=== PATIENT | male | born 1985 | race Caucasian/White ===

== ENCOUNTER 2017-05-11 06:00 | Inpatient (IN) | payer MEDICAID ==
[~2017-05-11] VITALS: Ht 185.4 cm; Wt 127.0 kg
[2017-05-11 06:05] VITALS: BP 117/68
--- NOTE | 2017-05-11 06:15 | NUR ---
TO ER BED 8
--- NOTE | 2017-05-11 06:22 | NUR ---
Patient being evaluated by physician at bedside.
[2017-05-11 07:05] LABS: HEMATOCRIT 43.5 % (36-52); HEMOGLOBIN 14.6 g/dL (12.0-18.0); MEAN CORPUSCULAR HEMOGLOBIN 29 pg (27-31); MEAN CORPUSCULAR HGB CONC 34 g/dL (33-37); MEAN CORPUSCULAR VOLUME 86 fL (80-94); PLATELET COUNT (AUTO) 223 K/uL (140-450); RED BLOOD CELL COUNT(AUTO) 5.08 MIL/uL (4.20-6.10); RED CELL DISTRIBUTION WIDTH 12.5 % (11.6-13.7); WHITE BLOOD COUNT (AUTO) 26.4 K/uL (4.8-10.8)
--- NOTE | 2017-05-11 07:09 | NUR ---
REPORT GIVEN TO KRYSTLE PIMENTEL, FOR CONTINUITY OF CARE.
--- NOTE | 2017-05-11 07:10 | NUR ---
REPORT RECEIVED FROM MELISA PIMENTEL---PT CURRENTLY RESTING WITH OU CLOSED, NO GRIMACE, NO MOAN FEET CROSSED---FAMILY MEMEBER AT BEDSIDE
[2017-05-11 07:17] LABS: ANION GAP 12.5 (8-16); CARBON DIOXIDE 29.6 mmol/L (21-32); CREATININE 1.4 mg/dL (0.7-1.3); POTASSIUM 4.1 mmol/L (3.5-5.1)
[2017-05-11 07:21] LABS: PROTHROMBIN TIME 11.7 secs (10.8-13.4)
[2017-05-11 07:22] LABS: ALBUMIN 3.9 g/dL (3.4-5.0); TOTAL BILIRUBIN 0.9 mg/dL (0.0-1.0)
--- NOTE | 2017-05-11 07:22 | NUR ---
2.3 LACTIC ACID CRITICAL LAB VALUE RECEIVED FROM LAB---REPORTED TO
[2017-05-11 07:23] LABS: LYMPHOCYTES % (MANUAL) 5 % (20-46); MONOCYTES % (MANUAL) 2 % (5-12)
[2017-05-11] MEDS ORDERED: NACL 0.9% 4,000 ML IV ONE (07:40)
[2017-05-11] MEDS ORDERED: CLINDAMYCIN 900 MG in DEXTROSE 5% 100 ML IV ONE (07:40)
--- NOTE | 2017-05-11 07:48 | NUR ---
SPOKE WITH PT---BOTH AGREED TO ADMIT FOR IV ANTIBIOTICS
[2017-05-11] MEDS ORDERED: CLINDAMYCIN 900 MG/6 ML VIAL IV ONE (08:04)
--- NOTE | 2017-05-11 08:33 | NUR ---
PT TO CT
--- NOTE | 2017-05-11 08:50 | NUR ---
RETURNED FROM CT---BACK ON THE MONITOR AND IVF
--- NOTE | 2017-05-11 09:28 | NUR ---
Pt transferred to Tele RM 106-A VIA [facility]
[2017-05-11] MEDS ORDERED: ACETAMINOPHEN EXTRA STRENGTH 500 MG TAB ONE (09:38)
--- NOTE | 2017-05-11 09:50 | NUR ---
RECEIVED REPORT FROM KRYSTLE IN ER, PT AWAKE AND ALERT, NO SIGNS OF ACUTE DISTRESS. BOWEL SOUNDS ACTIVE IN ALL 4 QUADRANTS, BOWEL AND BLADDER CONTINENCE. SKIN INTACT WITH LLE CELLULITIS, PHOTOS TAKEN IN ER. AMBULATORY WITH BRP. PATIENT DENIES PAIN AT THIS TIME. BLOOD PRESSURE 104/72, PULSE 118, TEMPERATURE 100.2, RESPIRATIONS 16, OXYGEN SATURATION 94%. PATIENT RECEIVED TYLENOL IN ER. ORIENTED TO HOSPITAL AND TO UNIT, PATIENT VERBALIZED UNDERSTANDING. BED IN LOW POSITION WITH BILATERAL HALF SIDE RAILS UP, CALL LIGHT WITHIN REACH. WILL CONTINUE TO MONITOR.
[2017-05-11] MEDS ORDERED: LORazepam 2 MG/ML VIAL IVP PRN (10:10)
[2017-05-11] MEDS ORDERED: MORPHINE SULFATE 2 MG/ML SYR IVP PRN (10:10)
[2017-05-11] MEDS ORDERED: ONDANSETRON 4 MG/2 ML VIAL IVP PRN (10:10)
[2017-05-11] MEDS: DEXT 5% /NACL 0.9% 1,000 ML IV SCH ×2 (11:17→20:54)
--- NOTE | 2017-05-11 11:30 | NUR ---
PT SLEEPING, NO SIGNS OF ACUTE DISTRESS. BED IN LOW POSITION WITH BILATERAL HALF SIDE RAILS UP, CALL LIGHT WITHIN REACH, WILL CONTINUE TO MONITOR.
[2017-05-11 12:00] VITALS: BP 100/65
[2017-05-11] MEDS: CLINDAMYCIN 600 MG in DEXTROSE 5% 50 ML IV SCH ×2 (12:02→20:53)
[2017-05-11] MEDS: ACETAMINOPHEN 325 MG TAB PO PRN ×2 (12:02→19:55)
--- NOTE | 2017-05-11 12:15 | NUR ---
PATIENT TEMPERATURE OF 101.5, GAVE TYLENOL ORDERED PRN AND PLACED 1 ICE PACK IN GROIN AND 1 ICE PACK BEHIND NECK. WILL CONTINUE TO MONITOR.
--- NOTE | 2017-05-11 13:24 | NUR ---
PATIENT TEMPERATURE 100.1. WILL CONTINUE TO MONITOR.
[2017-05-11 16:00] VITALS: BP 96/44
--- NOTE | 2017-05-11 16:00 | NUR ---
PT SLEEPING, NO SIGNS OF ACUTE DISTRESS, PARENTS AT BEDSIDE. BED IN LOW POSITION WITH BILATERAL HALF SIDE RAILS UP, CALL LIGHT WITHIN REACH. WILL CONTINUE TO MONITOR.
[2017-05-11] MEDS ORDERED: VANCOMYCIN PER PHARMACY MC PRN (17:45)
--- NOTE | 2017-05-11 17:45 | NUR ---
PT SITTING COMFORTABLY IN BED, NO SIGNS OF ACUTE DISTRESS. BED IN LOW POSITION WITH BILATERAL HALF SIDE RAILS UP, CALL LIGHT WITHIN REACH. DENIES PAIN AT THIS TIME. WILL CONTINUE TO MONITOR.
--- NOTE | 2017-05-11 18:06 | NUR ---
RECEIVED NEW ORDER FROM DR REIS FOR VANCOMYCIN, NOTED, WILL CARRY OUT.
[2017-05-11] MEDS: VANCOMYCIN 1GM/DEXT 5% PREMIX 200 ML IV SCH (18:31)
--- NOTE | 2017-05-11 19:27 | NUR ---
PT AWAKE AND ALERT, NO SIGNS OF ACUTE DISTRESS. ENDORSED TO DRUG WORKER NURSE FOR CONTINUITY OF CARE.
--- NOTE | 2017-05-11 19:30 | NUR ---
RECEIVED PT AWAKE ON BED, VITAL SIGNS TAKEN, ST ON TELE, TEMP-100.0, WITH LEFT LEG CELLULITIS AND WOUND NOTED, LEG RED AND SWOLLEN, TENDER TO TOUCH, WOUND OPEN TO AIR, NO DRAINAGE NOTED, IVF VANCOMYCIN INFUSING AT THIS TIME, PLAN OF CARE DISCUSSED, SAFETY MEASURES IN PLACE, CALL LIGHT WITHIN REACH.
[2017-05-11 20:00] VITALS: BP 97/49
--- NOTE | 2017-05-11 21:10 | NUR ---
DR REIS HERE FOR ID CONSULT, SEEN AND TALKED TO PT, NO NEW ORDERS.
--- NOTE | 2017-05-11 21:55 | NUR ---
WITH ORDER FOR WOUND CULTURE, WOUND CLEANSED WITH STERILE WATER AND WOUND BED SWAB, NO DRAINAGE NOTED, SENT TO LAB.
[2017-05-12] VITALS: BP 100/58
--- NOTE | 2017-05-12 | NUR ---
PT SLEEPING, EASILY AROUSABLE, VITAL SIGNS TAKEN, TEMP-99.6, ST-116-118 ON TELE, DENIES ANY PAIN, IVF INFUSING WELL, CONTINUE TO MONITOR CLOSELY.
[2017-05-12] MEDS: VANCOMYCIN 1GM/DEXT 5% PREMIX 200 ML IV SCH ×3 (02:30→19:31)
[2017-05-12] MEDS: HYDROcodone/APAP 5/325 MG 1 TAB TAB PO PRN ×3 (03:42→17:18)
--- NOTE | 2017-05-12 03:50 | NUR ---
PT AWAKE, AMBULATED TO BR USING CRUTCHES, TOLERATED WELL, VITAL SIGNS TAKEN, TEMP-100.6, COMPLAINING OF PAIN, MEDICATED PRN WITH NORCO PO, COOLING MEASURES DONE, MONITORED CLOSELY.
[2017-05-12 04:00] VITALS: BP 118/72
[2017-05-12] MEDS: CLINDAMYCIN 600 MG in DEXTROSE 5% 50 ML IV SCH ×3 (05:11→21:00)
--- NOTE | 2017-05-12 05:15 | NUR ---
TEMP RECHECKED WITH 99.6 ORALLY, DUE CLINDAMYCIN IVPB ADMINISTERED, MONITORED CLOSELY.
[2017-05-12 06:04] LABS: MEAN CORPUSCULAR HEMOGLOBIN 29 pg (27-31); MEAN CORPUSCULAR HGB CONC 34 g/dL (33-37); MEAN CORPUSCULAR VOLUME 85 fL (80-94); PLATELET COUNT (AUTO) 183 K/uL (140-450); RED BLOOD CELL COUNT(AUTO) 4.48 MIL/uL (4.20-6.10); RED CELL DISTRIBUTION WIDTH 12.7 % (11.6-13.7); WHITE BLOOD COUNT (AUTO) 14.9 K/uL (4.8-10.8)
[2017-05-12] MEDS: DEXT 5% /NACL 0.9% 1,000 ML IV SCH ×2 (06:10→16:10)
[2017-05-12 06:34] LABS: ANION GAP 11.4 (8-16); CARBON DIOXIDE 26.5 mmol/L (21-32); CREATININE 1.3 mg/dL (0.7-1.3); POTASSIUM 3.9 mmol/L (3.5-5.1)
[2017-05-12 06:56] LABS: MAGNESIUM 1.7 mg/dL (1.8-2.4); PHOSPHORUS 2.5 mg/dL (2.5-4.9)
--- NOTE | 2017-05-12 07:20 | NUR ---
PT SLEEPING, EASILY AROUSABLE, NO SIGNS OF DISTRESS, REPORT GIVEN TO RN FABIENNE FOR CONTINUITY OF CARE.
--- NOTE | 2017-05-12 07:30 | NUR ---
RECEIVED REPORT FROM PM RN. PT SLEEPING AROUSES EASILY. RESP EVEN AND UNLABORED. PT DENIES PAIN OR DISCOMFORT. NO S/S OF DISTRESS, SHORTNESS OF BREATH, OR RESTLESSNESS. IV INTACT INFUSING AT 100 ML/HR, NO SIGN OF SWELLING OR REDNESS. DISCUSSED PLAN OF CARE, PT VERBALIZED UNDERSTANDING. SAFETY MEASURES IN PLACED. BED LOCKED ON LOW POSITION. CALL LIGHT WITHIN REACH. WILL CONTINUE TO MONITOR
[2017-05-12 07:37] LABS: LYMPHOCYTES % (MANUAL) 7 % (20-46)
[2017-05-12 07:38] LABS: MONOCYTES % (MANUAL) 4 % (5-12)
[2017-05-12 08:00] VITALS: BP 158/71
--- NOTE | 2017-05-12 08:04 | NUR ---
PATIENT HAS BEEN SCREENED AND CATEGORIZED HIGH NUTRITION RISK. PATIENT WILL BE SEEN WITHIN 1-2 DAYS OF ADMISSION. 05/11/17-05/12/[address]
--- NOTE | 2017-05-12 08:19 | NUR ---
PT C/O 9/10 PAIN ON LOWER LEFT LEG. OFFERED MORPHINE PER MD ORDER. PT REFUSED, AND STATED HE PREFERS NORCO FOR HIS PAIN. MEDICATED PT PER MD ORDER. TOLERATED WELL. SAFETY MEASURES IN PLACED. WILL CONTINUE TO MONITOR.
--- NOTE | 2017-05-12 10:00 | NUR ---
WOUND CARE NURSE AT BEDSIDE. ASSESSED AND TOOK PICTURE OF THE WOUND. LOWER LEFT WOUND MEASURED AT 1CM X 1CM WITH REDNESS GOING THROUGH PT'S THIGH NOTED. SKIN IS WARM TO TOUCH AROUND THE WOUND AREA. PEDAL PULSE PRESENT ON BOTH FEET, CAP REFILL LESS THAN 3 SECS. SCAB NOTED ON LEFT ARM, WHICH APPEARS TO BE HEALING, NO REDNESS, OR SWELLING ON SURROUNDING TISSUE. WILL CONTINUE TO MONITOR.
--- NOTE | 2017-05-12 11:25 | NUR ---
WOUND CARE EVALUATION NOTE: REASON FOR EVALUATION: LLE WOUND COMPLETE SKIN ASSESSMENT DONE ON THIS 31 Y/O MALE FROM HOME TO [facility] WITH INITIAL DX: PAIN AND SWELLING TO LLE NO PAST MEDICAL HISTORY RECORDED. ABOVE INFORMATION OBTAINED FROM ADMISSION H&P. MEDICATIONS INCLUDES: VANCOMYCIN, CLINDAMYCIN, MORPHINE, LORAZEPAM AND HYDROCODONE. LAB. RESULTS 05/12/17 WERE WBC 14.9, H/H 13.0/38, GLUCOSE 114, PT/INR 11.7/1.2, AND PTT29.4. PT. ALERT ORIENTED X 2, ABLE TO AMBULATE. SKIN IS WARM AND DRY TO TOUCH,WNL, WITH GOOD SKIN TURGOR. MULTIPLES TATTOOS TO UL EXTREMITIES. LLE +2 EDEMA, WARM AND TENDER TO TOUCH COMPARE TO RLE. BLE PEDAL PULSE PRESENT AND STRONG, WITH HAIR GROWTH, TOE NAILS SHORT AND CLEAN. INTEGUMENTARY: - LLE MEDIAL POSITION WITH DRY CLOSED LESION, RYNA WOUND WITH ERYTHEMA , WARM TO TOUCH -LEFT ELBOW ALTER SKIN WITH DRY SCAB RECOMMENDATION: -CLEANSE LLE CELLULITIS WITH NS. PAINT WITH BETADINE FAN BLADE ALIGNER BID WC -CLEANSE LEFT ELBOW WITH NS, PAINT WITH BETADINE FAN BLADE ALIGNER BID WC -TURN AND REPOSITION Q2H -ASSESS AND MONITOR SKIN CONDITION DURING POSITION CHANGE -OFF LOAD BILATERAL HEELS BY PLACING PILLOW UNDER CALVES AT ALL TIME UNLESS OTHERWISE CONTRAINDICATED. RECOMMENDATIONS DISCUSSED WITH PRIMARY RN WILL FOLLOW UP PT EVERY 7-10 DAYS AND PRN. PLEASE CONTACT WOUND CARE NURSE FOR ANY CONCERNS, QUESTIONS AND CHANGE IN WOUND CONDITION
--- NOTE | 2017-05-12 12:33 | NUR ---
PT RESTING COMFORTABLY. NO SIGNS OF DISTRESS, SHORTNESS OF BREATH, OR RESTLESSNESS. RESP EVEN AND UNLABORED. SAFETY PLACED IN MEASURE. BED ON LOW, CALL LIGHT WITHIN REACH, SIDE RAILS UP. WILL CONTINUE TO MONITOR.
[2017-05-12] MEDS ORDERED: MAG SULF 2000 MG/WATER PREMIX 50 ML IV SCH (13:00)
[2017-05-12] MEDS: NACL 0.9% IRR 250 ML BOTTLE IR SCH (13:45)
--- NOTE | 2017-05-12 14:54 | NUR ---
05/12/17 RD INITIAL ASSESSMENT COMPLETED PLEASE REFER TO NUTRITION ASSESSMENT UNDER CARE ACTIVITY FOR ESTIMATED NUTRITIONAL NEEDS. 1. CONTINUE REGULAR DIET 2. RD TO FOLLOW UP WITHIN 3-5 DAYS; MODERATE RISK SCOT ARENAS RD
--- NOTE | 2017-05-12 15:10 | NUR ---
PT SLEEPING, EASILY AROUSABLE. NO S/S DISTRESS, SHORTNESS OF BREATH, OR RESTLESSNESS. DENIES PAIN OR DISCOMFORT. SAFETY MEASURES IN PLACED. BED LOCKED, LOW POSITION. SIDE RAILS UP. CALL LIGHT WITHIN REACH. WILL CONTINUE TO MONITOR.
[2017-05-12 16:00] VITALS: BP 102/74
--- NOTE | 2017-05-12 17:20 | NUR ---
PT C/O INCREASED PAIN IN LLE, REDNESS AND SWELLING APPEARS SLIGHTLY MORE THAN PREVIOUS ASSESSMENT, WILL MEDICATE WITH NORCO PER PT'S REQUEST, WILL PAGE DR. KING TO NOTIFY OF INCREASED REDNESS AND SWELLING. Addendum: 05/12/17 at 1742 by Jessica Issa RN MOTHER AND FAMILY AT BEDSIDE.
--- NOTE | 2017-05-12 17:27 | NUR ---
DR KING CALLED BACK, NOTIFIED OF INCREASE IN PAIN AND REDNESS AND SWELLING, WILL PAGE DR DOBBS PER DR. KING.
--- NOTE | 2017-05-12 17:38 | NUR ---
DR DOBBS CALLED BACK, NOTIFIED OF INCREASED SWELLING AND REDNESS WITH INCREASED PAIN, NO NEW ORDERS AT THIS TIME. WILL CONTINUE TO MONITOR.
--- NOTE | 2017-05-12 18:40 | NUR ---
CALLED LAB, RESULT STILL PENDING. WILL WAIT FOR RESULT BEFORE STARTING VANCO. PT AAO. FAMILY AT BEDSIDE. NO S/S OF DISTRESS, SOB, RESTLESSNESS. RESP EVEN AND UNLABORED. PT DENIES DISCOMFORT. PAIN MEDS EFFECTIVE. WILL CONTINUE TO MONITOR.
--- NOTE | 2017-05-12 19:38 | NUR ---
ENDORSED TO PM NURSE FOR CONTINUITY OF CARE. PT IS STABLE.
--- NOTE | 2017-05-12 19:38 | NUR ---
RECEIVED PT AWAKE TALKING TO FAMILY MEMBERS AT BEDSIDE, TEMP-100.0, CONTINUE COOLING MEASURES, VANCOMYCIN IVPB PRESENTLY INFUSING, LEFT LEG WOUND SINAN, NO DRAINAGE NOTED, EDEMA TO SITE WITH REDNESS UP TO THE THIGH AREA, PT VERBALIZED SLIGHT RELIEF FROM NORCO AND DOESN'T LIKE THE EFFECT OF MORPHINE, WILL CALL DR KING, PLAN OF CARE DISCUSSED, SAFETY MEASURES IN PLACE, CALL LIGHT WITHIN REACH.
[2017-05-12] MEDS ORDERED: KETOROLAC 30 MG/ML VIAL IVP PRN (20:15)
--- NOTE | 2017-05-12 21:05 | NUR ---
CLINDAMYCIN IVPB ADMINISTERED, MEDICATED PRN WITH TORADOL IVP ORDERED, MONITORED CLOSELY.
[2017-05-12] MEDS ORDERED: cefTRIAXone 1,000 MG VIAL ONE (21:54)
--- NOTE | 2017-05-12 22:01 | NUR ---
ROCEPHIN IVPB FIRST DOSE GIVEN, MONITORED FOR REACTION, DR REIS CHANGED FREQUENCY OF CLINDAMYCIN FROM Q8H TO Q6H, A DOSE WAS GIVEN AT 2100 AND THE NEXT DOSE PER PHARMACY IS 0000, PAGED DR REIS AND SAID IT'S CORETTA TO GIVE THE 0000 DOSE, PT SLEEPING AT THIS TIME, MONITORED CLOSELY.
[2017-05-13] VITALS: BP 102/72
--- NOTE | 2017-05-13 | NUR ---
PT SLEEPING, EASILY AROUSABLE, DENIES ANY PAIN, VITAL SIGNS STABLE, AFEBRILE, MONITORED CLOSELY.
[2017-05-13] MEDS: CLINDAMYCIN 600 MG in DEXTROSE 5% 50 ML IV SCH ×4 (00:31→17:23)
[2017-05-13] MEDS: NACL 0.9% IRR 250 ML BOTTLE IR SCH ×2 (00:34→13:00)
[2017-05-13] MEDS: DEXT 5% /NACL 0.9% 1,000 ML IV SCH ×4 (02:10→22:10)
[2017-05-13] MEDS: HYDROcodone/APAP 5/325 MG 1 TAB TAB PO PRN ×4 (05:00→16:42)
--- NOTE | 2017-05-13 05:06 | NUR ---
PT COMPLAINING OF PAIN, PREFER NORCO TABLET, NORCO 1 TAB GIVEN PER REQUEST, VERBALIZED LEFT LEG IS FEELING MUCH BETTER AND HE CAN MOVE IT MORE NOW THAN YESTERDAY, NO DRAINAGE OR BLEEDING ON THE WOUND NOTED, TEMP-99.7, HR-112, SAT-95%, MONITORED CLOSELY.
[2017-05-13 06:20] LABS: BASOPHILS % (AUTO) 0.3 % (0.0-2.0); EOSINOPHILS # (AUTO) 0.2 K/uL (0-0.4); EOSINOPHILS % (AUTO) 1.5 % (0.0-4.0); HEMOGLOBIN 12.8 g/dL (12.0-18.0); LYMPHOCYTES # (AUTO) 1.4 K/uL (2.0-11.5); LYMPHOCYTES % (AUTO) 10.5 % (20.5-51.1); MEAN CORPUSCULAR HEMOGLOBIN 29 pg (27-31); MEAN CORPUSCULAR HGB CONC 34 g/dL (33-37); MEAN CORPUSCULAR VOLUME 86 fL (80-94); MONOCYTES # (AUTO) 0.8 K/uL (0.8-1.0); MONOCYTES % (AUTO) 5.6 % (1.7-9.3); NEUTROPHILS # (AUTO) 11.1 K/uL (1.8-7.7); NEUTROPHILS % (AUTO) 82.1 % (42.2-75.2); PLATELET COUNT (AUTO) 190 K/uL (140-450); RED BLOOD CELL COUNT(AUTO) 4.41 MIL/uL (4.20-6.10); RED CELL DISTRIBUTION WIDTH 12.4 % (11.6-13.7); WHITE BLOOD COUNT (AUTO) 13.5 K/uL (4.8-10.8)
--- NOTE | 2017-05-13 06:40 | NUR ---
PT SLEEPING, NO SIGNS OF DISTRESS, IVF INFUSING WELL, MONITORED CLOSELY.
--- NOTE | 2017-05-13 07:15 | NUR ---
PT AWAKE, NO DISTRESS NOTED, REPORT GIVEN TO RN FABIENNE FOR CONTINUITY OF CARE.
[2017-05-13 07:24] LABS: ANION GAP 11.4 (8-16); CARBON DIOXIDE 26.8 mmol/L (21-32); CREATININE 1.1 mg/dL (0.7-1.3); POTASSIUM 4.2 mmol/L (3.5-5.1)
[2017-05-13 07:25] LABS: MAGNESIUM 2.2 mg/dL (1.8-2.4); PHOSPHORUS 2.5 mg/dL (2.5-4.9)
--- NOTE | 2017-05-13 07:26 | NUR ---
RECEIVED REPORT FROM PM RN. PT SLEEPING AROUSES EASILY. RESP EVEN AND UNLABORED. PT DENIES PAIN OR DISCOMFORT. NO S/S OF DISTRESS, SHORTNESS OF BREATH, OR RESTLESSNESS. IV INTACT INFUSING AT 100 ML/HR, NO SIGN OF SWELLING OR REDNESS. SKIN IS WARM, AND DRY. COLOR WNL. LLE CELLULITIS, SLIGHT REDNESS AND SWELLING NOTED. DISCUSSED PLAN OF CARE, PT VERBALIZED UNDERSTANDING. SAFETY MEASURES IN PLACED. BED LOCKED ON LOW POSITION. CALL LIGHT WITHIN REACH. WILL CONTINUE TO MONITOR
[2017-05-13 08:00] VITALS: BP 127/71
--- NOTE | 2017-05-13 08:44 | NUR ---
PT C/O 9/10 PAIN IN LLE. LLE REDNESS AND SWELLING NOTED. PT REFUSED TORADOL, REQUESTED NORCO. SAFETY MEASURE IN PLACED. WILL CONTINUE TO MONITOR.
--- NOTE | 2017-05-13 09:36 | NUR ---
PT SLEEPING BUT EASILY AROUSABLE. DENIES PAIN OF DISCOMFORT. NO S/S OD DISTRESS, SOB, OR RESTLESSNESS. SAFETY MEASURES IN PLACED. CALL LIGHT WITHIN REACH, BED ON LOW POSITION AND LOCKED, SIDE RIALS UP. WILL CONTINUE TO MONITOR.
--- NOTE | 2017-05-13 12:14 | NUR ---
DR KING AT BEDSIDE
--- NOTE | 2017-05-13 13:20 | NUR ---
PT'S FAMILY MEMBER AT BEDSIDE. PT EATING LUNCH BROUGHT FROM HOME. NO S/S DISTRESS. DENIES PAIN OR DISCOMFORT. SAFETY MEASURES IN PLACED. WILL CONTINUE TO MONITOR.
--- NOTE | 2017-05-13 13:36 | NUR ---
PAGED DR Janki WASHINGTON REGARDING PT'S CONSULT. AWAITING CALL BACK.
--- NOTE | 2017-05-13 14:26 | NUR ---
RECEIVED A CALL BACK FROM DR Janki WASHINGTON'S OFFICE. PER DR WASHINGTON'S MAGNETIZER, PT CANNOT BE SEEN DUE TO HIS INSURANCE. WILL NOTIFY DR KING.
--- NOTE | 2017-05-13 15:32 | NUR ---
PT RESTING COMFORTABLY. DENIES DISCOMFORT OR NEEDS. NO S/S DISTRESS, SOB, OR RESTLESSNESS. SAFETY MEASURES IN PLACED. CALL LIGHT WITHIN REACH. BED ON LOW POSITION. SIDE RAILS UP. WILL CONTINUE TO MONITOR.
[2017-05-13 16:00] VITALS: BP 112/68
--- NOTE | 2017-05-13 18:21 | NUR ---
PT SLEEPING, EASILY AROUSABLE. NO S/S OF DISTRESS, RESTLESSNESS, OR SOB. WILL CONTINUE TO MONITOR.
--- NOTE | 2017-05-13 19:21 | NUR ---
ENDORSED CARE TO PM NURSE FOR CONTINUITY OF CARE. PT IS STABLE.
--- NOTE | 2017-05-13 19:25 | NUR ---
RECEIVED PT FROM AM NURSE. PT IS STABLE, AWAKE, ALERT, ORIENTED X4. MED SURG PT ON ROOM AIR. IV ACCESS ON RIGHT HAND 22 G FLUIDS RUNNING AT 10ML/HR. PLAN OF CARE DISCUSSED WITH PT, VERBALIZED UNDERSTANDING. PTS OWN CRUTCHES FROM HOME AT THE BEDSIDE. BED ON LOW POSITION, CALL LIGHT WITHIN REACH. WILL CONTINUE TO MONITOR.
[2017-05-13] MEDS: ACETAMINOPHEN 325 MG TAB PO PRN (19:35)
[2017-05-13 20:00] VITALS: BP 104/59
--- NOTE | 2017-05-13 22:00 | NUR ---
GOT UP TO THE BATHROOM WITH CRUTCHES. WASHED UP . THEN BACK TO BED .
[2017-05-14 00:10] VITALS: BP 114/67
[2017-05-14] MEDS: CLINDAMYCIN 600 MG in DEXTROSE 5% 50 ML IV SCH ×2 (00:41→06:00)
[2017-05-14] MEDS: NACL 0.9% IRR 250 ML BOTTLE IR SCH (01:00)
--- NOTE | 2017-05-14 02:20 | NUR ---
MADE ROUNDS. PT IS SLEEPING SHOWING NO S/S OF DISCOMFORT. WILL CONTINUE TO MONITOR
--- NOTE | 2017-05-14 04:56 | NUR ---
MADE ROUNDS. PT IS SLEEPING, SHOWING NO S/S OF DISCOMFORT. WILL CONTINUE TO MONITOR.
[2017-05-14] MEDS: DEXT 5% /NACL 0.9% 1,000 ML IV SCH (05:02)
[2017-05-14 07:14] LABS: BASOPHILS # (AUTO) 0.1 K/uL (0.00-0.22); BASOPHILS % (AUTO) 0.9 % (0.0-2.0); EOSINOPHILS # (AUTO) 0.4 K/uL (0-0.4); EOSINOPHILS % (AUTO) 3.2 % (0.0-4.0); HEMOGLOBIN 12.2 g/dL (12.0-18.0); LYMPHOCYTES # (AUTO) 1.7 K/uL (2.0-11.5); LYMPHOCYTES % (AUTO) 15.4 % (20.5-51.1); MEAN CORPUSCULAR HEMOGLOBIN 30 pg (27-31); MEAN CORPUSCULAR HGB CONC 35 g/dL (33-37); MEAN CORPUSCULAR VOLUME 85 fL (80-94); MONOCYTES # (AUTO) 0.8 K/uL (0.8-1.0); MONOCYTES % (AUTO) 7.4 % (1.7-9.3); NEUTROPHILS # (AUTO) 8.2 K/uL (1.8-7.7); NEUTROPHILS % (AUTO) 73.1 % (42.2-75.2); PLATELET COUNT (AUTO) 200 K/uL (140-450); RED BLOOD CELL COUNT(AUTO) 4.13 MIL/uL (4.20-6.10); RED CELL DISTRIBUTION WIDTH 12.6 % (11.6-13.7); WHITE BLOOD COUNT (AUTO) 11.2 K/uL (4.8-10.8)
--- NOTE | 2017-05-14 07:15 | NUR ---
RECEIVED REPORT FROM QA TEST LEAD NURSE, PT IS SITTING UP IN BED AT THIS TIME, A/OX4, AMBULATES WITH ASSIST, IV IS ON THE RT HAND,PATENT, INTACT, FLUSHING WELL, PT HAS LEFT LOWER EXTREMITY CELLULITIS, SCAB ON HIS LEFT ELBOW, NO S/S OF RESPIRATORY DISTRESS OR DISCOMFORT NOTED, DISCUSSED PLAN OF CARE WITH PT, PT VERBALIZED UNDERSTANDING, SAFETY/FALL PRECAUTIONS ARE IN PLACE, CALL LIGHT IS WITHIN REACH, WILL CONTINUE TO MONITOR.
[2017-05-14 08:22] VITALS: BP 106/73
[2017-05-14 08:35] LABS: ANION GAP 9.2 (8-16); CARBON DIOXIDE 26.9 mmol/L (21-32); CREATININE 1.1 mg/dL (0.7-1.3); POTASSIUM 4.1 mmol/L (3.5-5.1)
--- NOTE | 2017-05-14 08:52 | NUR ---
PAGED DR. LAN REGARDING PATIENT.
[2017-05-14] MEDS ORDERED: COMMUNICATION ORDER MC SCH (09:00)
--- NOTE | 2017-05-14 09:00 | NUR ---
CALLED DR. KING I LET HIM KNOW THE PATIENT WANTED TO LEAVE AMA AND THAT I HAD ALSO SPOKEN TO DR. VILLANUEVA AND PER DR. VILLANUEVA PATIENT CAN CONTINUE ORAL PCN AT HOME, DR. KING SAID HE WOULD BE IN TO SEE PT IN HALF HOUR BUT IF PT DECIDED TO LEAVE AMA PATIENT THEN PATIENT COULD FOLLOW UP AT DR. AMAYA OFFICE.
--- NOTE | 2017-05-14 09:05 | NUR ---
I WENT AHEAD AND LET THE PATIENT KNOW DR. KING WAS ON HIS WAY AND WOULD BE HERE IN HALF HOUR, PT SAID HE WAS NOT GOING TO WAIT BECAUSE HE HAD TO GO TO WORK AND HIS RIDE WAS HERE. I LET HIM KNOW IF HE LEFT RIGHT NOW HE WOULD NOT RECEIVE A PRESCRIPTION BECAUSE DR. KING WOULD NEED TO WRITE IT OUT.
[2017-05-14] MEDS ORDERED: NACL IV SCH (12:00)
[2017-05-14] MEDS ORDERED: PENICILLIN POTASSIUM MU IV SCH (12:00)
== END 2017-05-14 09:15 | disposition left against medical advice (07) | DRG 720 ==
LOC: MED 06:00 → MTU 08:25
PROVIDERS: ADMIT Preventive Medicine Preventive Medicine/Occupational Environmental Medicine; ATTEND Preventive Medicine Preventive Medicine/Occupational Environmental Medicine
DX: A41.9 Sepsis, unspecified organism (principal); N17.9 Acute kidney failure, unspecified; E83.51 Hypocalcemia; E83.42 Hypomagnesemia; L03.116 Cellulitis of left lower limb; E66.9 Obesity, unspecified; B95.1 Streptococcus, group B, as the cause of diseases classified elsewhere; R73.9 Hyperglycemia, unspecified; R03.0 Elevated blood-pressure reading, without diagnosis of hypertension; Z68.36 Body mass index [BMI] 36.0-36.9, adult
CPT/HCPCS: 36415; 73701; 80048; 80053; 80202; 83605; 83735; 84100; 85025; 85610; 85651; 85730; 86140; 87040; 87070; 87075; 87081; 93971; 96365; 99285; J0696; J1885; J2270; J2540; J3370; J3475; J3490; J7030; J7042; J7060; Q0092; Q9967

== ENCOUNTER 2021-05-20 11:48 | Inpatient (IN) | payer OTHER, SELFPAY ==
[~2021-05-20] VITALS: Ht 180.3 cm; Wt 151.5 kg
--- NOTE | 2021-05-20 12:01 | NUR ---
PT AMBULATED TO ER BED 3.
[2021-05-20] MEDS ORDERED: NACL 0.9% 1,000 ML IV SCH (12:05)
[2021-05-20] MEDS ORDERED: cefTRIAXone 1,000 MG in DEXT 5% MINI-BAG PLUS 50 ML IV ONE (12:05)
[2021-05-20] MEDS ORDERED: cefTRIAXone 1,000 MG VIAL ONE (12:16)
--- NOTE | 2021-05-20 12:20 | NUR ---
35 Y/O MALE C/O SOB, +COUGH, N/V, FATIGUE, MYALGIA X 5 DAYS. STATES HE HAD A FEVER AT HOME OF 104F ON AND OFF X5 DAYS. PT RESP EVEN AND LABORED WITH SAT 85% ON RA. PLACED ON NON-REBREATHER WITH 02 SAT AT 97%. RT AT BEDSIDE. LUNGS DIM BILAT. AOX4 , ABLE TO MAKE ALL NEEDS KNOWN. PULSES PALPABLE AND STRONG BILAT. BLE +1 NON-PITTING. PMHX: DENIES NKA
--- NOTE | 2021-05-20 12:26 | NUR ---
LABS COLLECTED AND WALKED OVER TO LAB
[2021-05-20 13:02] LABS: BASOPHILS % (AUTO) 0.2 % (0.0-2.0); HEMATOCRIT 40.3 % (36-52); HEMOGLOBIN 13.6 g/dL (12.0-18.0); LYMPHOCYTES # (AUTO) 1.3 K/uL (2.0-11.5); LYMPHOCYTES % (AUTO) 25.2 % (20.5-51.1); MEAN CORPUSCULAR HEMOGLOBIN 28 pg (27-31); MEAN CORPUSCULAR HGB CONC 34 g/dL (33-37); MEAN CORPUSCULAR VOLUME 82.5 fL (80-94); MONOCYTES # (AUTO) 0.2 K/uL (0.8-1.0); MONOCYTES % (AUTO) 4.4 % (1.7-9.3); NEUTROPHILS # (AUTO) 3.5 K/uL (1.8-7.7); NEUTROPHILS % (AUTO) 70.2 % (42.2-75.2); PLATELET COUNT (AUTO) 126 K/uL (140-450); RED BLOOD CELL COUNT(AUTO) 4.88 MIL/uL (4.20-6.10); RED CELL DISTRIBUTION WIDTH 14.4 % (11.6-13.7)
--- NOTE | 2021-05-20 13:09 | NUR ---
COVID TESTS DONE, WALKED DOWN TO LAB. EKG COMPLETED. RESULTS HANDED TO
[2021-05-20 13:13] LABS: ALBUMIN 2.9 g/dL (3.4-5.0); ANION GAP 8.5 (8-16); CARBON DIOXIDE 29.2 mmol/L (21-32); CREATININE 1.5 mg/dL (0.6-1.3); POTASSIUM 3.7 mmol/L (3.5-5.1); TOTAL BILIRUBIN 0.6 mg/dL (0.0-1.0)
[2021-05-20] MEDS ORDERED: MORPHINE SULFATE 4 MG/ML SYR IVP PRN (14:10)
[2021-05-20] MEDS ORDERED: HYDROcodone/APAP 5/325 MG 1 TAB TAB PO PRN (14:10)
[2021-05-20] MEDS ORDERED: POTASSIUM CHLORIDE 10 MEQ TABER PO PRN (14:10)
[2021-05-20] MEDS ORDERED: MAG SULF 2000 MG/WATER PREMIX 50 ML IV PRN (14:10)
[2021-05-20] MEDS ORDERED: KCL 20 MEQ/WATER INJ PREMIX 200 ML IV PRN (14:10)
[2021-05-20] MEDS ORDERED: ONDANSETRON 4 MG/2 ML VIAL IVP PRN (14:10)
[2021-05-20] MEDS ORDERED: MAGNESIUM OXIDE 400 MG TAB PO PRN (14:10)
[2021-05-20] MEDS ORDERED: LORazepam 2 MG/ML VIAL IVP ONE (14:20)
[2021-05-20] MEDS ORDERED: remdesivir COMMUNICATION ORDER 1 EA MISC MC PRN (14:55)
[2021-05-20] MEDS ORDERED: remdesivir CLINICAL MONITORING 1 EA MISC MC PRN (15:00)
[2021-05-20] MEDS: DEXAMETHASONE 4 MG/ML VIAL IVP SCH (15:28)
[2021-05-20] MEDS: POTASSIUM CHL 20 MEQ/NACL 0.9% 1,000 ML IV SCH (15:29)
[2021-05-20] MEDS ORDERED: REMDESIVIR. 200 MG in NACL 0.9% 100 ML IV SCH (16:00)
--- NOTE | 2021-05-20 18:05 | NUR ---
Patient will be admitted to care of [facility]. Admited to TELE. Will go to room. Belongings list completed. Report to . Addendum: 05/20/21 at 1828 by THELMA REPORT GIVEN TO RONNY PIMENTEL
[2021-05-20 18:51] VITALS: BP 102/64
[2021-05-20] MEDS: ACETAMINOPHEN 325 MG TAB PO PRN (18:54)
--- NOTE | 2021-05-20 19:08 | NUR ---
Patient arrived on unit in wheeled chair. Patient has shortness of breath, cough and had a fever of 102.2, given tylenol and applied Oxymizer currently eating dinner and has no further needs.
--- NOTE | 2021-05-20 19:35 | NUR ---
RECEIVED REPORT FROM AM NURSE. PATIENT IN BED WITH O2 AT 10 LPM. NO SOB NOTED. IVF INFUSING WELL. ALL SAFETY PRECAUTIONS ARE IN PLACE. CALL LIGHT WITHIN REACH. WILL CONTINUE TO MONITOR.
[2021-05-20 20:00] VITALS: BP 122/70
[2021-05-20] MEDS: APIXABAN 2.5 MG TAB PO SCH (20:58)
--- NOTE | 2021-05-20 21:30 | NUR ---
PATIENT IS SWEATING A LOT, KEPT DRY AND CLEAN.
[2021-05-21] VITALS: BP 121/73
--- NOTE | 2021-05-21 01:00 | NUR ---
PATIENT IS SLEEPING . NO S/S OF RESPIRATORY DISTRESS. CALL LIGHT WITHIN REACH.
[2021-05-21] MEDS: POTASSIUM CHL 20 MEQ/NACL 0.9% 1,000 ML IV SCH ×2 (02:40→15:10)
[2021-05-21 04:00] VITALS: BP 121/69
[2021-05-21 06:19] LABS: ALBUMIN 2.7 g/dL (3.4-5.0); ANION GAP 12.4 (8-16); CHOL/HDL RATIO 2.7 (1-4.5); CREATININE 1.2 mg/dL (0.6-1.3); POTASSIUM 4.4 mmol/L (3.5-5.1); TOTAL BILIRUBIN 0.5 mg/dL (0.0-1.0)
[2021-05-21 06:28] LABS: BASOPHILS % (AUTO) 0.2 % (0.0-2.0); HEMATOCRIT 40.2 % (36-52); HEMOGLOBIN 13.9 g/dL (12.0-18.0); LYMPHOCYTES # (AUTO) 1.1 K/uL (2.0-11.5); LYMPHOCYTES % (AUTO) 22.8 % (20.5-51.1); MEAN CORPUSCULAR HEMOGLOBIN 28 pg (27-31); MEAN CORPUSCULAR HGB CONC 35 g/dL (33-37); MEAN CORPUSCULAR VOLUME 80.9 fL (80-94); MONOCYTES # (AUTO) 0.4 K/uL (0.8-1.0); MONOCYTES % (AUTO) 7.4 % (1.7-9.3); NEUTROPHILS # (AUTO) 3.4 K/uL (1.8-7.7); NEUTROPHILS % (AUTO) 69.6 % (42.2-75.2); PLATELET COUNT (AUTO) 137 K/uL (140-450); RED BLOOD CELL COUNT(AUTO) 4.97 MIL/uL (4.20-6.10); RED CELL DISTRIBUTION WIDTH 14.7 % (11.6-13.7); WHITE BLOOD COUNT (AUTO) 4.8 K/uL (4.8-10.8)
--- NOTE | 2021-05-21 07:26 | NUR ---
ENDORSED TO AM NURSE FOR CONTINUITY OF CARE. PT IS STABLE.
[2021-05-21 08:00] VITALS: BP 133/77
--- NOTE | 2021-05-21 08:01 | NUR ---
RECEIVED REPORT FROM NIGHT NURSE, PT CAME FOR SOB, N/V FATIGUE FROM LAST 5 DAYS. PT DIAGNOSED WITH COVID, PNA, RESPIRATORY FAILURE. NKA, FULL CODE, ALERT ORIENTED X 4 ON REGULAR DIET. NO BM YESTERDAY. IV ACCESS ON R AC 22 GAUGE. ON 15L OF O2 VIA BUBBLE MODIFIER. HAD FEVER LAST NIGHT. WILL CONTINUE TO MONITOR PT AND FOLLOW CURRENT PLAN OF CARE.
--- NOTE | 2021-05-21 09:06 | NUR ---
PATIENT HAS BEEN SCREENED AND CATEGORIZED MODERATE NUTRITION RISK. PATIENT WILL BE SEEN WITHIN 3-5 DAYS OF ADMISSION. 05/23/21 05/25/[address]
--- NOTE | 2021-05-21 09:07 | NUR ---
ADMINISTERED PRESCRIBED MEDICATIONS PER MD ORDER. PT DO NOT HAVE SOB O2 SATURATION IS 94% AT THE MOMENT. WILL CONTINUE TO MONITOR PT.
[2021-05-21] MEDS: DEXAMETHASONE 4 MG/ML VIAL IVP SCH (09:43)
[2021-05-21] MEDS: APIXABAN 2.5 MG TAB PO SCH ×2 (09:43→21:06)
--- NOTE | 2021-05-21 11:00 | NUR ---
MADE ROUNDS PATIENT IS RESTING OXYGEN SATURATION AT 88-89% WILL CONTINUE TO MONITOR.
[2021-05-21] MEDS ORDERED: MORPHINE SULFATE 2 MG/ML SYR IVP PRN (11:15)
[2021-05-21 12:00] VITALS: BP 148/89
--- NOTE | 2021-05-21 12:00 | NUR ---
CALLED RT AND TALKED TO DIANN LAND IS DESAT AT 77-81 % ON 15LPM OXYGEN VIA NC. WILL CONTINUE TO MONITOR.
--- NOTE | 2021-05-21 13:23 | NUR ---
PT IS IN THE BED SLEEPING, O2 SAT IS 90%. PT HAS NO APPETITE AND PT REFUSED TO EAT LUNCH.
--- NOTE | 2021-05-21 14:05 | NUR ---
VISUAL SUPERVISOR CALLED TO BED FOR DESCENDING SATURATION RECEIVED ON A BUBBLE HUMIDIFIED OXYGEN AT 15 LPM VIA NC SATURATION 86% TACHYPNEIC AT 36 BPM HR 88 BREATH SOUNDS DECREASED RIGHT SIDE MC LML DIMINISHED LLL LOC ASLEEP EASILY AWAKEN COVID POSITIVE RAPID 05/20; PUI PCR 05/20 PATIENT IS PRESENTING WITH DESCENDING SATURATION FROM 94% TO 86% PATIENT IS CANDIDATE FOR HIGH FLOW NASAL CANNULA REVIEWED WITH TERE/MARGARITO
--- NOTE | 2021-05-21 14:13 | NUR ---
PLACED ON A VAPOTHERM HIGH FLOW NASAL CANNULA NOTED TERE/RN NOTIFIED
[2021-05-21] MEDS: REMDESIVIR. 100 MG in NACL 0.9% 100 ML IV SCH (14:16)
--- NOTE | 2021-05-21 14:18 | NUR ---
DC PLANNIN YRS OLD MALE PATIENT WAS ADMITTED FROM HOME WITH A DX OF COVID PNA , HYPOXEMIC RESP FAILURE. PT HAS NO MEDICAL HISTORY. CXR SHOWED BILATERAL PATCHY PNA. RAPID COVID TEST POSITIVE PCR IS PENDING. ON 15L NRB SATING 93%. ADMINISTERED REMDESIVIR IV , DECADRON IVP AND CONTINUED HOME MEDS. CONSULTED WITH ANGELA. DC PLAN PER PT RESPONSE TO THE TREATMENT. CM TO FOLLOW Addendum: 05/28/21 at 1146 by Aylin Lino RN DC PLANNING: FAXED THE ORDER TO [facility] , [facility] AND [facility] CM TO FOLLOW Addendum: 05/28/21 at 1527 by Aylin Lino RN DC PLANNING: RECEIVED A CALL FROM [facility] COATING MACHINE FEEDER SPOKE WITH [place] STATED DECLINE PATIENT BECAUSE THEIR ECMO IS IN USE PLUS PATIENT IS NOT STABLE FOR TRANSFER FI02 IS 75% . CALLED [facility] THEY DON'T HAVE ECMO, NOTIFIED IE AWAITING FOR RESPOND. CM TO FOLLOW Addendum: 05/29/21 at 1745 by Aylin Lino RN DC PLANNING: FOLLOWING UP WITH [facility] NO BED AVAILABLE [facility] AND [facility]. NO BED AVAILABLE. CM TO FOLLOW Addendum: 05/31/21 at 1700 by Aylin Lino RN DC PLANNING CONTINUE ON VENT SUPPORT FIO2 60% . ON VESED, FENTANYL AND PROPOFOL DRIP. CONTINUED IVF, IV ABX LEVAQUIN. CALLED [facility] SPOKE WITH DEANN STATED THEY ARE AT CAPACITY FOR ECMO. [facility] [place], [facility] AND ALEXANDRA DECLINE THE CASE. CM TO FOLLOW Addendum: 06/03/21 at 1157 by Aylin Lino RN DC PLANNING: REMAINS ON VENT FIO2 40% ON VERSED, PROPOFOL AND FENTANYL DRIPS. FOLLOWED UP WITH TRANSFER FOR ECMO [facility], [facility] [place] AND [facility] NO BED AVAILABLE. CM TO FOLLOW Addendum: 06/04/21 at 1236 by Aylin Lino RN DC PLANNING: CALLED [facility] SPOKE WITH TEN BOYCE STATED THE CASE IS ALREADY DECLINE BY THEIR MD HOWEVER NO ICU BED AT THIS TIME. CALLED [facility] TRANSFER CENTER SPOKE WITH SOL STATED NO ICU BED AVAILABLE RECOMMENDED TO CALL EVERY DAY. [facility] [place] AND ELIZABETH LEFT A MESSAGE. PT STILL INTUBATED SEDATED FIO2 40% ON PROPOFOL, VERSED AND FENTANYL DRIP. CM TO FOLLOW Addendum: 06/05/21 at 1550 by Aylin Lino RN DC PLANNING: PATIENT HAS AN [facility] EVALUATION, FAXED TO [facility] AND CM TO FOLLOW Addendum: 06/06/21 at 1413 by Aylin Lino RN DC PLANNING: RECEIVED A CALL FROM [facility] [phone] SPOKE WITH [facility] PROVIDED AUTH # LAYA KEENE [id number] FOR TRANSPORT [id number] CM TO FOLLOW Addendum: 06/07/21 at 1712 by Aylin Lino RN DC PLANNING: NEVIN AND I MET WITH PT'S FAMILY FATHER AND MOTHER DISCUSSED THE CONCERN AND ISSUES, CLARIFIED THE IV INSERTION SITE, FAMILY REQUESTED TO TRANSFER HIM TO OTHER FACILITY AND TO HAVE A MEETING WITH THE DR. NOTIFIED DR HOSKINS TO CALL THE FAMILY. SPOKE WITH THE [facility] MARIA G NAVAS [phone] UPDATED HER THE LT[facility] PENDING FOR BED BUT FAMILY REFUSED. PER YOSEF THEY ARE NOT AUTHORIZE FOR TRANSFER TO HIGHER LEVEL . CM TO FOLLOW Addendum: 06/10/21 at 1350 by Aylin Lino RN DC PLANNING: SPOKE WITH DR DAVIS STATED HE SPOKE WITH PT'S FATHER ANSWERED ALL THE QUESTIONS AND CONCERNS, AGREED WITH TREATMENT. PER DR DAVIS WANTED TO WAIT UNTIL THURSDAY FOR POSSIBLE TRACH. SPOKE WITH PT'S FATHER CONFIRMED THAT HE SPOKE WITH DR PARRISH ON THURSDAY AND DR MAX TODAY HE IS VERY SATISFIED WITH DR DAVIS ,ANSWERED ALL QUESTIONS. HOW EVER HE REQUESTED TO REQUEST A TRANSFER TO [facility] [place]. FAXED TO [facility] AND [facility] PER FAMILY REQUEST. CM TO FOLLOW Addendum: 06/10/21 at 1642 by Aylin Lino RN DC PLANNING: PER FAMILY REQUEST CALLED AND FAXED ALL PAPER WORKS TO [phone] STATED THEY ARE NOT CONTRACTED WITH [facility] PLUS THEY HAVE NO ICU BED. CALLED [facility] SPOKE WITH AUGUSTIN NO ICU BED WELL. CALLED PT'S FATHER NOTIFIED HIM AND UPDATED HIM THE SITUATION. CM TO FOLLOW Addendum: 06/17/21 at 1152 by Aylin Lino RN DC PLANNING: PATIENT HAS AN ORDERFOR THE HOME O2 FAXED TO [facility] AND [facility]. RECEIVED A CALL FROM [facility] SPOKE WITH DEA ASKED THAT WHERE WE NEED THE OXYGEN. I CLARIFIED THE OXYGEN TO BE DELIVERED AT THE BED SIDE. PER DEA THE ETA WILL BE BETWEEN 2-3 HRS. CALLED PT'S FATHER AND NOTIFIED HIM THE ETA TIME AND WORKING ON HOME HEALTH. FAXED THE REQUEST TO [facility]. CM TO FOLLOW Addendum: 06/17/21 at 1716 by Aylin Lino RN DC PLANNING: CALLED [facility] SPOKE WITH SARKIS PROVIDE THE AUTH FOR [facility] [id number] CALLED [facility] PROVIDE THE AUTH TO [facility] AND PER [facility] WILL ARRANGE TO SEE PATIENT 06/18. NOTIFIED PT'S FATHER ANA SR. [facility] TO FOLLOW
--- NOTE | 2021-05-21 14:24 | NUR ---
ADMINISTERED REMDESIVEIR 100 MG SCHEDULED INFUSING WELL AND CHANGED PT OXYGEN TO HIGH FLOW 100% AT 35 LPM AND TEMP AT 34 SATURATING AT 92%.
[2021-05-21 16:00] VITALS: BP 126/72
--- NOTE | 2021-05-21 17:52 | NUR ---
CALLED RT PATIENT OXYGEN LEVEL AT 72%. PT IS SITTING AND ON HIGH FLOW 100% AT 35LPM.
--- NOTE | 2021-05-21 18:20 | NUR ---
MADE ROUNDS AT THIS TIME PATIENT ON SYLVIA FLOW 100% FIO2 35LPM OXYGEN SATURATION 85%. ENCOURAGE PT TO LIE ON THE SIDE AND DO PRONONG BUT UNABLE TO TOLERATE POSITION. WILL CONTINUE TO MONITOR.
--- NOTE | 2021-05-21 19:33 | NUR ---
endorsed the night nurse for continuity of care
--- NOTE | 2021-05-21 19:34 | NUR ---
RECEIVED REPORT FROM AM NURSE FOR CONTINUITY OF CARE. PATIENT IS CALM IN BED IN HIGH CONDON'S POSITION WITH EYES CLOSED. ON HI FLOW AT 90% AT 35 L SATING AT 90% AT THIS TIME. NO S/S OF RESPIRATORY DISTRESS. ALL SAFETY MEASURES ARE IN PLACE. CALL LIGHT WITHIN REACH. WILL CONTINUE TO MONITOR.
[2021-05-21 20:00] VITALS: BP 130/73
--- NOTE | 2021-05-21 21:06 | NUR ---
SCHEDULED MEDS GIVEN ORDERED. PATIENT IS RESTING COMFORTABLY. NO ACUTE DISTRESS NOTED AT THIS TIME. AFEBRILE. WATER OFFERED.
[2021-05-21] MEDS: FAMOTIDINE 20 MG TAB PO SCH (21:07)
[2021-05-21] MEDS: ZOLPIDEM 5 MG TAB PO PRN (21:07)
[2021-05-22] VITALS: BP 112/77
--- NOTE | 2021-05-22 03:02 | NUR ---
PATIENT IS SLEEPING. NO S/S OF RESPIRATORY DISTRESS DISTRESS. BREATHING REGULAR NON LABORED, SATING AT 97%.
[2021-05-22] MEDS: POTASSIUM CHL 20 MEQ/NACL 0.9% 1,000 ML IV SCH ×2 (03:40→16:10)
[2021-05-22 04:00] VITALS: BP 109/69
[2021-05-22 05:45] LABS: BASOPHILS % (AUTO) 0.1 % (0.0-2.0); HEMATOCRIT 40.8 % (36-52); HEMOGLOBIN 13.7 g/dL (12.0-18.0); LYMPHOCYTES # (AUTO) 1.2 K/uL (2.0-11.5); LYMPHOCYTES % (AUTO) 12.2 % (20.5-51.1); MEAN CORPUSCULAR HEMOGLOBIN 28 pg (27-31); MEAN CORPUSCULAR HGB CONC 34 g/dL (33-37); MEAN CORPUSCULAR VOLUME 83.2 fL (80-94); MONOCYTES # (AUTO) 0.9 K/uL (0.8-1.0); MONOCYTES % (AUTO) 8.8 % (1.7-9.3); NEUTROPHILS % (AUTO) 78.9 % (42.2-75.2); PLATELET COUNT (AUTO) 191 K/uL (140-450); RED CELL DISTRIBUTION WIDTH 14.6 % (11.6-13.7); WHITE BLOOD COUNT (AUTO) 10.2 K/uL (4.8-10.8)
[2021-05-22 06:27] LABS: ALBUMIN 2.5 g/dL (3.4-5.0); ANION GAP 12.3 (8-16); CARBON DIOXIDE 27.2 mmol/L (21-32); CREATININE 1.1 mg/dL (0.6-1.3); POTASSIUM 4.5 mmol/L (3.5-5.1); TOTAL BILIRUBIN 0.4 mg/dL (0.0-1.0)
--- NOTE | 2021-05-22 07:50 | NUR ---
NURSE REPORT REPORT GIVEN BY NIGHT NURSE KRISTINA, WITH JUST THE SBAR. NO VERBAL REPORT GIVEN. RECEIVED PATIENT CONNECTED TO HIGH FLOW 40% VSS. AFEB. TEMP 98.1 f. IV NS AT 80 ML/HR.
--- NOTE | 2021-05-22 07:50 | NUR ---
ENDORSED TO AM NURSE FOR CONTINUITY OF CARE. PT IS STABLE.
[2021-05-22 08:00] VITALS: BP 130/80
[2021-05-22] MEDS: DEXAMETHASONE 4 MG/ML VIAL IVP SCH (09:18)
[2021-05-22] MEDS: APIXABAN 2.5 MG TAB PO SCH ×2 (09:18→21:59)
[2021-05-22] MEDS: FAMOTIDINE 20 MG TAB PO SCH ×2 (09:18→22:00)
--- NOTE | 2021-05-22 10:00 | NUR ---
NURSE CARE MEDS GIVEN AND PATIENT ABLE TO TAKE MEDS WHOLE. DECADRON 6 MG GIVEN IVP. NS AT 80 ML/HR.
[2021-05-22 12:00] VITALS: BP 99/68
--- NOTE | 2021-05-22 12:00 | NUR ---
NURSE CARE VSS. AFCÉSAR. TELE ST THIS AM WITH 108 AND AT NOON SR 85. MD CALLED THIS AM- DR. BRIAN ROA AND THE [facility] WAS CALLED, BECAUSE PATIENT FATHER WANTED TO GET UPDATES. NO CALLS FROM THIS TO THIS NURSE.
[2021-05-22] MEDS: REMDESIVIR. 100 MG in NACL 0.9% 100 ML IV SCH (15:21)
[2021-05-22 16:00] VITALS: BP 130/80
--- NOTE | 2021-05-22 17:30 | NUR ---
NURSE CARE DR ROA DIDN'T CALL BACK AND THIS NURSE CALLED THE OFFICE AGAIN BUT MD IS BEING COVERED BY DR KOENIG. RETURNED CALL AND STATED THAT DR ALVAREZ WILL CALL IN THE AM. MESSAGES SENT TO PT FATHER AND VERBALLY TALKED TO HIM ON HER CELLPHONE.
--- NOTE | 2021-05-22 19:50 | NUR ---
NURSE REPORT AND ENDORSEMENT REPORT GIVEN TO NIGHT NURSE BARBIE TO ASSUME CARE CARE OF PATIENT. PATIENT HAD ASKED FOR BSC AND EVEN THE NURSING MANAGER POOL COULD NOT GET A BSC. SBAR GIVEN TO NURSE AND ALL QUESTIONS ANSWERED. ANDRE GARCIA
--- NOTE | 2021-05-22 19:52 | NUR ---
REPORT FROM MARGARITO POWELL. BARBIE WASHINGTON RN
[2021-05-22 20:00] VITALS: BP 124/55
--- NOTE | 2021-05-22 20:21 | NUR ---
PT WAS SEEN AND ASSESSED. PT ON BiPAP SETTINGS IPAP 16, EPAP 8, BACK RATE 14, FiO2 100%. SPO2 98%. ALARMS SET AND FUNCTIONING. NO RESPIRATORY DISTRESS NOTED AT THIS TIME. WILL CONTINUE TO MONITOR PT.
[2021-05-22] MEDS: ZOLPIDEM 5 MG TAB PO PRN (22:00)
--- NOTE | 2021-05-22 23:59 | NUR ---
PT SPO2 PROBE WAS OFF FROM FINGER. PLACED NEW PROBE ON.
[2021-05-23] VITALS (22 sets, daily range): BP systolic 79–135; BP diastolic 49–85
--- NOTE | 2021-05-23 02:13 | NUR ---
FOUND PT WITH BiPAP OFF. SPO2 IN 70s AND SITTING ON THE EDGE OF THE BED. PLACED PT BACK ON BiPAP AND EDUCATION GIVEN. INCREASE EPAP TO 10 cmH20 DUE TO LOW SPO2. SPO2 IMPROVED TO 92%. RN NOTIFIED.
--- NOTE | 2021-05-23 03:16 | NUR ---
EDUCATION TO KEEP HEART MONITOR IN PLACE UNTIL PROVIDER DISCONTINUES TELEMETRY MONITORING. REPLACED LEADS. PATIENT VERBALIZED UNDERSTANDING. BARBIE WASHINGTON RN
--- NOTE | 2021-05-23 04:15 | NUR ---
PATIENT PRONING ENCOURAGED AT THIS TIME. BARBIE WASHINGTON RN
--- NOTE | 2021-05-23 04:17 | NUR ---
PATIENT AWAKE AND GOT UP TO USE RESTROOM INDEPENDENTLY. SAYS HE NEEDS ADDERALL TO HELP CALM HIMSELF DOWN. [facility] [place] [employer] NOT ABLE TO GIVE PRN ADDERALL. SAYS HE WILL TAKE MORE AMBIEN. [employer] [address] NOT ABLE TO GIVE AMBIEN DURING 4 AM HOUR. GIVEN AT HS. DENIES PAIN. PATIENT VERBALIZES UNDERSTANDING OF TEACHING. BARBIE WASHINGTON RN
[2021-05-23] MEDS: POTASSIUM CHL 20 MEQ/NACL 0.9% 1,000 ML IV SCH (04:34)
--- NOTE | 2021-05-23 04:34 | NUR ---
NORMAL SALINE WITH 20 MEQ OF POTASSIUM IS NOT INDICATED, POTASSIUM 4.5. BARBIE WASHINGTON RN
[2021-05-23 06:15] LABS: BASOPHILS % (AUTO) 0.2 % (0.0-2.0); EOSINOPHILS % (AUTO) 0.3 % (0.0-4.0); HEMATOCRIT 42.5 % (36-52); HEMOGLOBIN 14.1 g/dL (12.0-18.0); LYMPHOCYTES # (AUTO) 1.1 K/uL (2.0-11.5); LYMPHOCYTES % (AUTO) 10.5 % (20.5-51.1); MEAN CORPUSCULAR HEMOGLOBIN 28 pg (27-31); MEAN CORPUSCULAR HGB CONC 33 g/dL (33-37); MEAN CORPUSCULAR VOLUME 83.1 fL (80-94); MONOCYTES # (AUTO) 1.2 K/uL (0.8-1.0); MONOCYTES % (AUTO) 11.4 % (1.7-9.3); NEUTROPHILS # (AUTO) 8.2 K/uL (1.8-7.7); NEUTROPHILS % (AUTO) 77.6 % (42.2-75.2); PLATELET COUNT (AUTO) 248 K/uL (140-450); RED BLOOD CELL COUNT(AUTO) 5.11 MIL/uL (4.20-6.10); RED CELL DISTRIBUTION WIDTH 14.4 % (11.6-13.7); WHITE BLOOD COUNT (AUTO) 10.6 K/uL (4.8-10.8)
[2021-05-23 06:35] LABS: ALBUMIN 2.6 g/dL (3.4-5.0); CARBON DIOXIDE 26.4 mmol/L (21-32); POTASSIUM 4.4 mmol/L (3.5-5.1); TOTAL BILIRUBIN 0.6 mg/dL (0.0-1.0)
--- NOTE | 2021-05-23 07:43 | NUR ---
HANDOFF WITH MARGARITO POWELL. BARBIE WASHINGTON RN
--- NOTE | 2021-05-23 07:43 | NUR ---
NURSE REPORT REPORT OBTAINED FROM NIGHT NURSE BARBIE, AND THIS NURSE ASSUMED CARE. RECEIVED PATIENT GFETTING OUT OF BED AND TOOK OFF HIS MASK OF THE BIPAP. RT WAS CALLED TO ASSIST PATIENT.
--- NOTE | 2021-05-23 08:30 | NUR ---
NEED TO BE TRANSFERRED TO ICU. PATIENT IS CONFUSED AND RT STATED THAT HE NEEDS TO BE INTUBATED SINCE ON BIPAP, IT IS 80% O2 SAT. THIS NURSE CALLED DR MCKEON WITH THE CONDITION OF THE PATIENT AND GAVE ORDER FOR TRANSFER TO ICU. PATIENT TO BE TRANSFERRED VIA BED WITH BIPAP AND MONDITOR. NURSING MIMEOGRAPHER WAS TOLD. ICU WAS CALLED AND STATED TO LET THE CHARGE NURSE KNOW. THIS NURSE CALLED [facility], BUT SHE ISN'T THE CHARGE NURSE AND NURSING MIMEOGRAPHER WAS TOLD OF THE NEED FOR TRANSFER. RTs and THIS NURSE HELP TRANSFERRED THE PATIENT VIA BED, AND NURSING MIMEOGRAPHER ONLY CARRIED THE CHART AND CELLPHONE.
--- NOTE | 2021-05-23 09:00 | NUR ---
NURSE REPORT TO ICU NURSE HEMA, AFTER PATIENT WAS TRANSFERRED TO THE ICU. PATIENT ABLE TO MOVE HIMSELF FROM THE BED TO THE ICU BED. ANDRE GARCIA RN
--- NOTE | 2021-05-23 09:08 | NUR ---
RCV'D PT ON BIPAP ON CHARTED SETTINGS. PT IS CONFUSED AND PULSE OX IN 80'S. SPOKE WITH MD SOLIS. AND PER MD SOLIS PT NEEDS TO BE TRANSFEREED TO ICU. PAGING MD ROA WELL.
[2021-05-23] MEDS ORDERED: PROPOFOL 1000 MG/100 ML PREMIX 100 ML IV ONE (09:23)
--- NOTE | 2021-05-23 09:44 | NUR ---
TRANSFERRED PATIENT TO ICU WITH NO INCIDENT. PAGED MD ROA. WAITING FOR CALL BACK.
[2021-05-23] MEDS ORDERED: LORazepam 2 MG/ML VIAL IVP PRN ×2 (10:00→10:30)
--- NOTE | 2021-05-23 10:10 | NUR ---
INTUBATION: DR ROA AND RT AT BEDSIDE AT THIS TIME FOR INTUBATION. 1010 30MG ETOMIDATE ADMINISTERED, 1012 50MG SUCCINYLCHOLINE ADMINISTERED, 1014 ET TUBE SECURED AT 25CM AT THE LIP. PROPOFOL STARTED AT 10 MCG/KG/MIN.
--- NOTE | 2021-05-23 10:15 | NUR ---
INTUBATED PT WITH 8.0 @24CM AT THE LIP AND PLACED ON VENT ON AC 14 500 +10 100%. DR ROA AT BEDSIDE, ORDERED ABG IN ONE HOUR. WILL CONTINUE TO MONITOR.
[2021-05-23] MEDS ORDERED: fentaNYL citrate 1 MG in NACL 0.9% 80 ML IV PRN (10:20)
[2021-05-23] MEDS: PROPOFOL 1000 MG/100 ML PREMIX 100 ML IV PRN ×4 (10:30→21:01)
[2021-05-23] MEDS ORDERED: INSULIN LISPRO SLIDING SCALE 100 UNITS/ML VIAL SUBQ PRN (10:40)
[2021-05-23] MEDS ORDERED: DEXTROSE 50% 50 ML SYR IVP PRN (10:40)
[2021-05-23] MEDS: MIDAZOLAM MDV 100 MG in NACL 0.9% 80 ML IV PRN (10:56)
[2021-05-23] MEDS ORDERED: LORazepam 2 MG/ML VIAL IVP SCH (11:00)
[2021-05-23] MEDS: FAMOTIDINE 20 MG TAB PO SCH ×2 (11:00→21:30)
[2021-05-23] MEDS: APIXABAN 2.5 MG TAB PO SCH ×2 (11:00→21:30)
[2021-05-23] MEDS: DEXAMETHASONE 4 MG/ML VIAL IVP SCH (11:00)
[2021-05-23] MEDS ORDERED: NACL 0.9% 1,000 ML IV SCH (11:00)
[2021-05-23] MEDS: BLOOD GLUCOSE MONITORING 1 DEV DEV FS SCH ×3 (12:55→23:51)
[2021-05-23] MEDS: fentaNYL citrate - 50mL vial 2.5 MG in NACL 0.9% 200 ML IV PRN ×2 (13:45→23:56)
[2021-05-23] MEDS: NACL 0.9% 1,000 ML IV SCH (14:26)
--- NOTE | 2021-05-23 14:28 | NUR ---
PATIENT CLEANED, HYGIENE PROVIDED: ORAL CARE, CHG BATH, CATHETER CARE. CHANGED ALL DIRTY LINEN, OFFLOADED PRESSURE WITH PILLOWS. CHEST RISE AND FALL EQUAL BILATERALLY, NO SIGNS OF ACUTE DISTRESS NOTED. SAFETY MEASURES IN PLACE.
[2021-05-23] MEDS: REMDESIVIR. 100 MG in NACL 0.9% 100 ML IV SCH (15:00)
--- NOTE | 2021-05-23 15:20 | NUR ---
05/23/21 RD INITIAL ASSESSMENT COMPLETED PLEASE REFER TO NUTRITION ASSESSMENT UNDER CARE ACTIVITY FOR ESTIMATED NUTRITIONAL NEEDS. 1. RECOMMEND NPO 2. RECOMMEND ENTERAL NUTRITION WITH VITAL AF 1.2 @ 65 ML/HR, START AT 10 ML/HR, ADVANCE BY 10 ML/HR Q6H UNTIL GOAL IS MET -THIS WILL PROVIDE 1872 KCAL AND 117 GM OF PROTEIN, MEETING 100% OF KCAL AND PROTEIN NEEDS 3. RECOMMEND FREE WATER FLUSH OF 100 ML Q4H 4. RECOMMEND VITAMIN C, VITAMIN D, AND MULTIVITAMIN ONCE DAILY 5. RD TO FOLLOW-UP 2-3 DAYS, HIGH RISK ABBE DAVIS RD
--- NOTE | 2021-05-23 17:36 | NUR ---
PATIENT'S FATHER CALLED, HE WAS UPDATED ON PATIENT CONDITION, ALL QUESTIONS ANSWERED AT THIS TIME.
[2021-05-23] MEDS: LEVOFLOXACIN 750 MG/D5W PREMIX 150 ML IV SCH (17:40)
--- NOTE | 2021-05-23 20:05 | NUR ---
DR MCKEON PAGED TO REQUEST PICC LINE ORDER, DR LOPEZ EARLY HEAD START TEACHER, AWAITING RETURN PHONE CALL.
--- NOTE | 2021-05-23 20:45 | NUR ---
REPORT GIVEN BY WILMA PIMENTEL. PT IS ETT TO VENT. PT INTUBATED TO DAY. VENT SETTING AC TV 500 FIO2 100 % RA TE 14 AND PEEP 10 ROL WELL, NO SOB NOTED AT THIS TIME. SR ON GIMP TACKER. OGT IN PLACE WITH 10 CC RESIDUAL.IV TO RIGHT AC NO 22. RUNNING SEDATION PROPOFOL 35 MCG/KG/MIN,VERSED 4 MG/HR AND FENTANYL AT 1.5 MCG/KG/HR WITH RASS -2. CONT ON IV NS AT 100 CC/HR. LEVAQUIN IV ABT RUNNING AT THIS TIME. PLANNING TO HAVE PICC LINE INSERTION TO DAY. WAITING FOR PICC LINE NURSE TO COME. SKIN INTACT. NOTED MULTIPLE SCAR TO RIGHT SHOULDER AREA. ABD SOFT NON DISTENDED. SKIN WARM TO TOUCH. F/C INTACT WITH YELLOW CLEAR URINE. GENTLE CARE GIVEN. KEPT CLEAN AND DRY.
--- NOTE | 2021-05-23 21:00 | NUR ---
ENDORSED TO DEPOSIT CLERK NURSE FOR CONTINUITY OF CARE. PATIENT STABLE AT THIS TIME.
--- NOTE | 2021-05-23 21:30 | NUR ---
PROPOFOL TITRATE DOWN TO 30 MCG/KG/MIN AND VERSED DOWN TO 3 MG/HR D/T BP WAS DOWN 95/60
--- NOTE | 2021-05-23 23:00 | NUR ---
ALL NIGHT MED GIVEN ACACIA WELL. PICC LINE [id number] TO CYNTHIA DOUBLE LUMENS. X RAY WAS DONE AND PER TRISTAN PICC LINE NURSE ,OKAY TO USE. BOTH LINE FLUSHING WELL AND NOTED WITH GOOD BLOOD RETURN. ALL IVS MOVE TO PICC LINE.
[2021-05-24] VITALS (31 sets, daily range): BP systolic 100–121; BP diastolic 52–76
[2021-05-24] MEDS: PROPOFOL 1000 MG/100 ML PREMIX 100 ML IV PRN ×8 (00:45→23:16)
--- NOTE | 2021-05-24 00:45 | NUR ---
PT KEEP BITTING TUBING INCREASE PROPOFOL BACK TO 35 MCG/KG/MIN AND ACACIA WELL, BLOOD SUGAR 114 NO INSULIN NEED.
--- NOTE | 2021-05-24 04:00 | NUR ---
AM CARE GIVEN ,ORAL CARE,SPONGE BATH AND F/C CARE.KEPT CLEAN AND DRY.
[2021-05-24] MEDS: NACL 0.9% 1,000 ML IV SCH ×4 (05:20→23:18)
[2021-05-24] MEDS: MIDAZOLAM MDV 100 MG in NACL 0.9% 80 ML IV PRN (05:33)
--- NOTE | 2021-05-24 06:30 | NUR ---
BLOOD SUGAR 74. NO INSULIN NEED IT.
[2021-05-24 06:31] LABS: BASOPHILS % (AUTO) 0.4 % (0.0-2.0); EOSINOPHILS % (AUTO) 0.2 % (0.0-4.0); HEMATOCRIT 39.7 % (36-52); HEMOGLOBIN 13.3 g/dL (12.0-18.0); LYMPHOCYTES # (AUTO) 0.9 K/uL (2.0-11.5); LYMPHOCYTES % (AUTO) 8.2 % (20.5-51.1); MEAN CORPUSCULAR HEMOGLOBIN 28 pg (27-31); MEAN CORPUSCULAR HGB CONC 34 g/dL (33-37); MEAN CORPUSCULAR VOLUME 83.9 fL (80-94); MONOCYTES # (AUTO) 0.8 K/uL (0.8-1.0); MONOCYTES % (AUTO) 7.3 % (1.7-9.3); NEUTROPHILS # (AUTO) 9.1 K/uL (1.8-7.7); NEUTROPHILS % (AUTO) 83.9 % (42.2-75.2); PLATELET COUNT (AUTO) 243 K/uL (140-450); RED BLOOD CELL COUNT(AUTO) 4.73 MIL/uL (4.20-6.10); RED CELL DISTRIBUTION WIDTH 14.9 % (11.6-13.7); WHITE BLOOD COUNT (AUTO) 10.9 K/uL (4.8-10.8)
[2021-05-24] MEDS: BLOOD GLUCOSE MONITORING 1 DEV DEV FS SCH ×4 (06:46→23:47)
[2021-05-24] MEDS: fentaNYL citrate - 50mL vial 2.5 MG in NACL 0.9% 200 ML IV PRN ×2 (07:05→10:00)
[2021-05-24 07:06] LABS: ALBUMIN 2.4 g/dL (3.4-5.0); ANION GAP 9.3 (8-16); CARBON DIOXIDE 28.4 mmol/L (21-32); POTASSIUM 4.7 mmol/L (3.5-5.1); TOTAL BILIRUBIN 0.9 mg/dL (0.0-1.0)
--- NOTE | 2021-05-24 07:15 | NUR ---
REPORT GIVEN TO AM SHIFT FOR CONTINUATION OF CARE. PT CONT ON SEDATION.
[2021-05-24] MEDS ORDERED: fentaNYL citrate - 50mL vial 2.5 MG in NACL 0.9% 200 ML IV PRN ×2 (07:45→08:15)
--- NOTE | 2021-05-24 08:16 | NUR ---
Change of shift report received from Stefany RN, met pt fully sedated on Prpofol,Fentanyl, and Versed gtt oxygenation ETT to Vent fio2 100% tolerating well vitalssigns stable afebrile, room close to nurses station, OGT clamped plan to start feeding osborne to gravity adequate urine output noted ,education defer till family visit will continue to monitor and treat as a per care plan.
--- NOTE | 2021-05-24 08:36 | NUR ---
@0815 pt's dad called updates over the phone on pt's condition,sedated for better oxygenation/lungs perfusion via vent fio2 100%. Father asked if the hospital using ECMO as part of treatments? This RN said no and more also pt is tolerating all treatments as at this time vitals signs stable and he requested to talk to doctors on this case emphasis that appropriate doctor will be cardiac rehab nurse/supply chain manager
[2021-05-24] MEDS: DEXAMETHASONE 4 MG/ML VIAL IVP SCH (09:23)
[2021-05-24] MEDS: FAMOTIDINE 20 MG TAB PO SCH ×2 (09:24→21:32)
[2021-05-24] MEDS: APIXABAN 2.5 MG TAB PO SCH ×2 (09:24→21:32)
--- NOTE | 2021-05-24 11:20 | NUR ---
@1003 Dr Christopher was here notified him to call pt's father for updates and said that he talked to pt's dad previous day and as at this time no changes. Order received for tube feeding via OGT Jevity 1.2 goal rate 40ml/hr and free water 50cc q4h. @1005 I relayed the message to pt's father asked him if he have I PHONE,[email or web address] OR [employer] he said no just for effective communication so [facility] Video call at the bedside with family via [employer] education on pt's care,ventilator vital signs and pt's response to ongoing treatments as at this time pt is sedated and intubated/ventilated. Also mention that family can visit at the bedside and coming to the hospital is at their own risk also no one will be allowed to visit if they are sick or have any symptoms.
--- NOTE | 2021-05-24 12:42 | NUR ---
Father and mother visit at the bedside ongoig support and eduication on pt's care condition and they verbalized understanding Blood sugar was 97 no coverage required as per MD'S order.
[2021-05-24] MEDS: REMDESIVIR. 100 MG in NACL 0.9% 100 ML IV SCH (15:00)
--- NOTE | 2021-05-24 15:24 | NUR ---
RECEIVED TORB FROM DR. MCKEON FOR NUTRITION RECOMMENDATIONS OF VITAL AF 1.2 @ 65 ML/HR ML/HR. START AT 10 ML/HR INCREASE BY 10 ML/HR Q4H; VITAMIN C 500 MG BID, VITAMIN D, AND MULTIVITAMIN ONCE DAILY.
[2021-05-24] MEDS: LEVOFLOXACIN 750 MG/D5W PREMIX 150 ML IV SCH (17:42)
--- NOTE | 2021-05-24 19:17 | NUR ---
Change of shift report to Thomas RN updates on the drips VENT settings as at this time no changes in pt's condition and care plan vitals signs stable.
--- NOTE | 2021-05-24 20:01 | NUR ---
PT started on tube feeding as per MD'S ORDER Jevity 1.2 lorder received to change to Vital AF @3140 Dr Bragg ID was here updates on pt's condition no new order received..
[2021-05-24] MEDS: ASCORBIC ACID 500 MG/5 ML ORASYR GT SCH (21:25)
[2021-05-25] VITALS (26 sets, daily range): BP systolic 81–128; BP diastolic 52–102
[2021-05-25] MEDS: PROPOFOL 1000 MG/100 ML PREMIX 100 ML IV PRN ×4 (01:03→18:43)
[2021-05-25] MEDS: fentaNYL citrate - 50mL vial 2.5 MG in NACL 0.9% 200 ML IV PRN ×3 (01:38→22:01)
[2021-05-25] MEDS: MIDAZOLAM MDV 100 MG in NACL 0.9% 80 ML IV PRN (03:22)
[2021-05-25 05:49] LABS: BASOPHILS % (AUTO) 0.1 % (0.0-2.0); HEMOGLOBIN 12.3 g/dL (12.0-18.0); LYMPHOCYTES # (AUTO) 0.7 K/uL (2.0-11.5); LYMPHOCYTES % (AUTO) 5.6 % (20.5-51.1); MEAN CORPUSCULAR HEMOGLOBIN 28 pg (27-31); MEAN CORPUSCULAR HGB CONC 33 g/dL (33-37); MEAN CORPUSCULAR VOLUME 84.2 fL (80-94); MONOCYTES # (AUTO) 0.8 K/uL (0.8-1.0); MONOCYTES % (AUTO) 6.7 % (1.7-9.3); NEUTROPHILS # (AUTO) 10.8 K/uL (1.8-7.7); NEUTROPHILS % (AUTO) 87.6 % (42.2-75.2); PLATELET COUNT (AUTO) 253 K/uL (140-450); RED CELL DISTRIBUTION WIDTH 14.5 % (11.6-13.7); WHITE BLOOD COUNT (AUTO) 12.4 K/uL (4.8-10.8)
[2021-05-25 06:14] LABS: ALBUMIN 2.2 g/dL (3.4-5.0); ANION GAP 7.8 (8-16); CARBON DIOXIDE 29.5 mmol/L (21-32); POTASSIUM 5.3 mmol/L (3.5-5.1); TOTAL BILIRUBIN 0.7 mg/dL (0.0-1.0)
[2021-05-25] MEDS: NACL 0.9% 1,000 ML IV SCH ×3 (06:23→23:29)
[2021-05-25] MEDS: BLOOD GLUCOSE MONITORING 1 DEV DEV FS SCH ×4 (06:28→23:28)
--- NOTE | 2021-05-25 06:36 | NUR ---
PATIENT STABLE VITALS SIGNS IN NORMAL LIMITS sr 84 on mpnitor am careas performed blood sugar 121 not need for coverage sedated not signs of pain was observed AC MODE ON VENT R 14 FIO2 100 T 500 PEEP 10 //DiCaprio RN
--- NOTE | 2021-05-25 07:26 | NUR ---
RECEIVED INTUBATED PT WITH A 8.0 ETT SECURED @24 TEETH/GUM ON VENT. SETTINGS AC 14, VT500,PEEP 10 AND FIO2 TITRATED TO 90%. PT SUCTIONED OBTAINED MODERATE AMOUNT OF THICK YELLOW SECRETIONS, AIRWAY IS PATENT AND ETT IS SECURE WITH ANCHOR FAST DEVICE. PT SEDATED NOT IN ANY DISTRESS AT THIS TIME. VENT IS PLUGGED INTO A RED OUTLET WITH ALARMS ON AND FUNCTIONING.
--- NOTE | 2021-05-25 07:30 | NUR ---
BEDSIDE REPORT RECEIVED FROM INTERNAL CONTROLS SPECIALIST NURSE GRANT GILBERT SEDATED TO RASS -3, ETT TO VENT, RESP EVEN UNLABORED, BILAT EQUAL CHEST RISE AND FALL, O2SAT 95%, ACVC FIO2 90%, TV 500, RR 14, PEEP 10, SR ON VIDEO GAMES STORYWRITER AT 89, BP 98/54, SKIN WARM DRY COLOR WNL, CAP REFILL >3, PIV 22G TO R AC, PICC LINE TO RIGHT UPPER ARM, PROPOFOL INFUSING AT 10MCG/KG/MIN, FENTANYL 2.0MCG/KG/HR, VERSED 5MG/HR, NS AT 100ML/HR, SITES WNL, ABD SOFT, NON DISTENDED, OGT FEEDING ON GOING, ABDI CATH IN PLACE, DRAINING YELLOW URINE, PLAN OF CARE REVIEWED, ALL SAFETY MEASURES IN PLACE. COVID PRECAUTION IN NEGATIVE FLOW ROOM. DRY WT 156KG
[2021-05-25] MEDS ORDERED: MULTIVITAMIN/MINERALS 15 ML UDBTL GT SCH (09:00)
--- NOTE | 2021-05-25 09:12 | NUR ---
FATHER ON THE PHONE, PT UPDATED
[2021-05-25] MEDS: FAMOTIDINE 20 MG TAB PO SCH ×2 (09:23→21:46)
[2021-05-25] MEDS: ASCORBIC ACID 500 MG/5 ML ORASYR GT SCH ×2 (09:23→21:46)
[2021-05-25] MEDS: DEXAMETHASONE 4 MG/ML VIAL IVP SCH (09:24)
[2021-05-25] MEDS: VITAMIN D 400 IU TAB GT SCH (09:24)
[2021-05-25] MEDS: APIXABAN 2.5 MG TAB PO SCH ×2 (09:25→21:47)
--- NOTE | 2021-05-25 09:56 | NUR ---
AM MEDS GIVEN PER ORDER, PT TOLERATING TUBE FEEDING WELL WITHOUT RESIDUAL, RATE INCREASED TO 30ML/HR
--- NOTE | 2021-05-25 10:52 | NUR ---
DR YEAGER AT BEDSIDE FOR EVAL
--- NOTE | 2021-05-25 11:02 | NUR ---
VT DECREASED TO 475 ml PER SHEAR OPERATOR HELPER. NURSE AWARE. WILL CONTINUE TO MONITOR.
--- NOTE | 2021-05-25 11:28 | NUR ---
(05/25/21) RD FOLLOW UP COMPLETED PLEASE REFER TO NUTRITION PROGRESS NOTE UNDER CARE ACTIVITY FOR ESTIMATED NUTRITION NEEDS. RD RECOMMENDATIONS: CONTINUE ON JEVITY 1.2 AT 30 ML/HR ADVANCING TO GOAL OF 40 ML/HR. CONSIDER INCREASING GOAL RATE TO JEVITY 1.2 TO RUN AT 50 ML/HR. THIS WILL PROVIDE A TOTAL OF 1200 ML TOTAL VOUME, 1440 KCAL, 66 GM PRO, AND 968 ML FREE WATER, WHICH WILL MEET 84% EST KCAL NEEDS AND 56% EST PROTEIN NEEDS. RECOMMEND INCREASE FWF TO 120 ML Q4H TO PROVIDE ADDITIONAL 720 ML FREE WATER. 3. CONTINUE VITAMIN C, VITAMIN D, AND MULTIVITAMIN ONCE DAILY 4. RD TO FOLLOW-UP 2-3 DAYS, HIGH RISK TOMMY STOCK MS, RDN
--- NOTE | 2021-05-25 11:30 | NUR ---
INDUSTRIAL SERVICER AT BEDSIDE FOR CXR
--- NOTE | 2021-05-25 12:20 | NUR ---
ABDI CARE DONE, CHG WIPE DONE, ORAL CARE DONE.
--- NOTE | 2021-05-25 12:25 | NUR ---
PT PLACED IN PRONE POSITION PER DR YEAGER. PT ACACIA WELL.
--- NOTE | 2021-05-25 12:30 | NUR ---
NO LONGER REACHING FOR ETT WITH ADEQUATE SEDATION, RESTRAINS REMOVED AT THIS TIME
--- NOTE | 2021-05-25 13:04 | NUR ---
FAMILY(DAD,SISTER,THU) TOOK TURNS VISITING
--- NOTE | 2021-05-25 15:15 | NUR ---
PT REMAINS IN PRONE POSITION, VITALS STABLE, NO DISTRESS NOTED, LIMITED ORAL CARE DONE.
--- NOTE | 2021-05-25 15:32 | NUR ---
SPOKE TO REGARDING ABG RESULTS. PHYSICIAN REQUESTS TO INCREASE RR TO 22 AND REPEAT ABG IN AM.
[2021-05-25] MEDS: LEVOFLOXACIN 750 MG/D5W PREMIX 150 ML IV SCH (17:02)
--- NOTE | 2021-05-25 17:02 | NUR ---
LEVAQUIN IVPB STARTED PER ORDER, PT CONDITION REMAINS UNCHANGED
--- NOTE | 2021-05-25 17:05 | NUR ---
PT IN PRONE POSITION AT THIS TIME, TOLERATING WELL. ETT IS SECURE WITH A PATENT AIRWAY. VENT ALARMS ON AND FUNCTIONING.
--- NOTE | 2021-05-25 17:15 | NUR ---
RT AT BEDSIDE FOR ROUTINE CARE
[2021-05-26] VITALS (27 sets, daily range): BP systolic 113–145; BP diastolic 72–90
[2021-05-26] MEDS: PROPOFOL 1000 MG/100 ML PREMIX 100 ML IV PRN ×8 (02:38→23:13)
[2021-05-26] MEDS: MIDAZOLAM MDV 100 MG in NACL 0.9% 80 ML IV PRN ×2 (03:52→22:09)
[2021-05-26] MEDS: BLOOD GLUCOSE MONITORING 1 DEV DEV FS SCH ×3 (05:28→17:53)
--- NOTE | 2021-05-26 06:55 | NUR ---
PATIENT COMFORTABLE SEDATED AT THIS TIME DOESNT SEEM LIKE IN PAIN VITAL SIGNS IN NORMAL LIMITS SR 78 ON MONITOR CONECTED TO VENTILATOR AC R 22 T475 PEEP 10 FIO2 85 /CHANGE POSITION FROM PRONO TO SUPINE BATH AND ORAL CARE WAS PERFORMED //DiCaprio RN
--- NOTE | 2021-05-26 07:40 | NUR ---
RECEIVED REPORT FROM INTERNET SALES ASSOCIATE NURSE. PATIENT LYING DOWN IN BED IN CRITICAL CONDITION. INTUBATED, SEDATED. CYNTHIA PICC LINE INTACT PATENT, AND INFUSING IVF PER MD ORDERS. VENT:AC/VC FIO2:85%, VT:475, RATE:22, PEEP:10. WILL CONTINUE TO MONITOR.
--- NOTE | 2021-05-26 07:44 | NUR ---
RECEIVED INTUBATED PT WITH A 8.0 ETT SECURED @24 TEETH/GUM ON VENT. SETTINGS AC 22, VT 475, PEEP 10 AND FIO2 85% PT SUCTIONED OBTAINED SMALL AMOUNT OF THICK YELLOW SECRETIONS, AIRWAY IS PATENT AND ETT IS SECURE. PT IS SEDATED NOT IN ANY DISTRESS AT THIS TIME. VENT ALARMS ON AND FUNCTIONING. WILL CONTINUE TO MONITOR.
--- NOTE | 2021-05-26 08:55 | NUR ---
SCHEDULED MEDICATIONS DUE GIVEN. ORAL CARE PROVIDED. WILL CONTINUE TO MONITOR.
[2021-05-26] MEDS: VITAMIN D 400 IU TAB GT SCH (09:01)
[2021-05-26] MEDS: APIXABAN 2.5 MG TAB PO SCH ×2 (09:02→21:49)
[2021-05-26] MEDS: DEXAMETHASONE 4 MG/ML VIAL IVP SCH (09:02)
[2021-05-26] MEDS: ASCORBIC ACID 500 MG/5 ML ORASYR GT SCH ×2 (09:02→21:48)
[2021-05-26] MEDS: FAMOTIDINE 20 MG TAB PO SCH ×2 (09:02→21:48)
[2021-05-26] MEDS: MULTIVITAMIN/MINERALS 1 TAB PO SCH (09:02)
[2021-05-26] MEDS: fentaNYL citrate - 50mL vial 2.5 MG in NACL 0.9% 200 ML IV PRN (09:54)
[2021-05-26] MEDS: NACL 0.9% 1,000 ML IV SCH ×2 (12:10→22:18)
--- NOTE | 2021-05-26 12:37 | NUR ---
ORAL CARE PROVIDED AND REPOSITIONED PATIENT. WILL CONTINUE TO MONITOR.
--- NOTE | 2021-05-26 13:29 | NUR ---
NEW VENT SETTINGS CHANGED BY . PC Pinsp 22, R22, PEEP 14 AND FIO2 85%. WILL CONTINUE TO MONITOR.
--- NOTE | 2021-05-26 13:32 | NUR ---
PT PLACED INTO PRONE POSITION WITH ICU NURSES AND GURU TIDWELL. ETT IS SECURE WITH A PATENT AIRWAY. PT NOT IN ANY DISTRESS AT THIS TIME.
--- NOTE | 2021-05-26 15:00 | NUR ---
CONDITION UNCHANGED. PERFORMED ORAL CARE. WILL CONTINUE TO MONITOR.
[2021-05-26] MEDS: LEVOFLOXACIN 750 MG/D5W PREMIX 150 ML IV SCH (17:02)
--- NOTE | 2021-05-26 17:59 | NUR ---
PT REMAINS IN PRONE POSITION TOLERATING WELL. PT NOT IN ANY DISTRESS. ETT IS SECURE WITH A PATENT AIRWAY.
--- NOTE | 2021-05-26 18:08 | NUR ---
INSULIN COVERAGE NOT GIVEN AT THIS TIME PATIENT IS PRONED AND OGT FEEDING IS OFF. WILL CONTINUE TO MONITOR.
--- NOTE | 2021-05-26 19:26 | NUR ---
GAVE REPORT TO CHEMISTRY QUALITY CONTROL TECHNICIAN NURSE FOR CONTINUITY OF CARE. PATIENT CONTINUES TO BE IN CRITICAL CONDITION.
--- NOTE | 2021-05-26 22:34 | NUR ---
PATIENT SEDATED NOW IN PRONO POSITION VITALS SIGNS IN NORMAL LIMITS DOESNT SEEM TO BE IN PAIN NOW IN PRESURE CONTROL ON VENT FIO2 85 PEEP 14 SB 58 ON MONITOR //DiCaprio RN
[2021-05-27] VITALS (27 sets, daily range): BP systolic 122–144; BP diastolic 70–95
[2021-05-27] MEDS: BLOOD GLUCOSE MONITORING 1 DEV DEV FS SCH ×5 (00:28→23:23)
[2021-05-27] MEDS: PROPOFOL 1000 MG/100 ML PREMIX 100 ML IV PRN ×9 (02:09→23:36)
[2021-05-27] MEDS: NACL 0.9% 1,000 ML IV SCH ×2 (02:24→18:48)
--- NOTE | 2021-05-27 06:31 | NUR ---
PATIENT STABLE VITALS SIGNS IN NORMAL LIMITS SR64 ON MONITOR CHANGED FROM PRONE POSITIONS TO SUPINE WELL TOLERATED ORAL CARE AND SUCTION WAS DONE ALONG WITH THE BATH DOESN'T SEEM TO BE IN PAIN AT THIS TIME //DiCaprio RN
--- NOTE | 2021-05-27 07:15 | NUR ---
Change of shift report received from Honey Garcia RN met pt sedated , good gag reflex and weak cough,weak movement noted on extremities with pain. grimacing noted with suctioning and oral care. ETT to ventilator FIO2 75% tolerating well nosign of distress ongoing Propofol,Fentanyl and Versed. Hydration with IV fluids and tube feeding Safety room close to nursing station enhanced observation restraints on skin checked no breakdown and osborne to gravity.
[2021-05-27] MEDS: VITAMIN D 400 IU TAB GT SCH (08:49)
[2021-05-27] MEDS: ASCORBIC ACID 500 MG/5 ML ORASYR GT SCH ×2 (08:49→20:14)
[2021-05-27] MEDS: FAMOTIDINE 20 MG TAB PO SCH ×2 (08:50→20:14)
[2021-05-27] MEDS: DEXAMETHASONE 4 MG/ML VIAL IVP SCH (08:50)
[2021-05-27] MEDS: MULTIVITAMIN/MINERALS 1 TAB PO SCH (08:50)
[2021-05-27] MEDS: APIXABAN 2.5 MG TAB PO SCH ×2 (08:53→20:14)
[2021-05-27 09:51] LABS: BASOPHILS % (AUTO) 0.3 % (0.0-2.0); EOSINOPHILS # (AUTO) 0.2 K/uL (0-0.4); EOSINOPHILS % (AUTO) 1.4 % (0.0-4.0); HEMATOCRIT 37.4 % (36-52); HEMOGLOBIN 12.3 g/dL (12.0-18.0); LYMPHOCYTES % (AUTO) 9.3 % (20.5-51.1); MEAN CORPUSCULAR HEMOGLOBIN 28 pg (27-31); MEAN CORPUSCULAR HGB CONC 33 g/dL (33-37); MEAN CORPUSCULAR VOLUME 83.6 fL (80-94); MONOCYTES % (AUTO) 9.5 % (1.7-9.3); NEUTROPHILS # (AUTO) 8.8 K/uL (1.8-7.7); NEUTROPHILS % (AUTO) 79.5 % (42.2-75.2); PLATELET COUNT (AUTO) 353 K/uL (140-450); RED BLOOD CELL COUNT(AUTO) 4.47 MIL/uL (4.20-6.10); RED CELL DISTRIBUTION WIDTH 14.1 % (11.6-13.7); WHITE BLOOD COUNT (AUTO) 11.1 K/uL (4.8-10.8)
[2021-05-27 10:10] LABS: ANION GAP 4.5 (8-16); CARBON DIOXIDE 33.6 mmol/L (21-32); CREATININE 0.8 mg/dL (0.6-1.3); MAGNESIUM 2.1 mg/dL (1.8-2.4); PHOSPHORUS 3.1 mg/dL (2.5-4.9); POTASSIUM 4.1 mmol/L (3.5-5.1); TOTAL BILIRUBIN 0.6 mg/dL (0.0-1.0)
--- NOTE | 2021-05-27 10:24 | NUR ---
PER Pinsp TITRATED TO [id number]. WILL CONTINUE TO MONITOR.
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
--- NOTE | 2021-05-27 13:45 | NUR ---
pt repositioned Prone position by 4 staff members tolerated well vitals signs stable .
--- NOTE | 2021-05-27 14:50 | NUR ---
Pt's father anf mother at the bedside ongoing support and education on care plan and they verbalized understanding.
[2021-05-27] MEDS: fentaNYL citrate - 50mL vial 2.5 MG in NACL 0.9% 200 ML IV PRN (16:00)
[2021-05-27] MEDS: LEVOFLOXACIN 750 MG/D5W PREMIX 150 ML IV SCH (16:42)
--- NOTE | 2021-05-27 19:26 | NUR ---
@1915 Change of shift report given to Alli PIMENTEL as at this time no changes in care plan and pt's condition still sedated tolerating all care treatments well vitals signs stable afebrile.
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
--- NOTE | 2021-05-27 20:05 | NUR ---
SCHEDULED MEDICATIONS GIVEN ORDERED BY MD, NO SIGNS OF DISTRESS OBSERVED WHILE AT THE BEDSIDE, WILL CONTINUE TO CLOSELY MONITOR AND FREQUENTLY ROUND.
--- NOTE | 2021-05-27 20:28 | NUR ---
VAP ORAL CARE, SUCTIONING, HYGIENE, POSITIONING AND SAFETY CHECKS PROVIDED. MINIMAL CLEAR SECRETIONS SUCTIONED, AIRWAY, OPEN, CLEAR AND MAINTAINABLE. PATIENT TOLERATING CURRENT VENT SETTINGS WELL, RR 20, OXYGEN SATURATION 94%, NO SIGNS OF DISTRESS OBSERVED WHILE AT THE BEDSIDE. SAFETY CHECKS CONTINUE TO BE IN PLACE, VS STABLE, WILL CONTINUE TO CLOSELY MONITOR AND FREQUENTLY ROUND.
--- NOTE | 2021-05-27 22:05 | NUR ---
PATIENT CONTINUES TO REST IN PRONE POSITION, FLACC 0, TOLERATING VENT SETTINGS WELL, RR 20, OXYGEN SATURATION 95%, AIRWAY OPEN, CLEAR AND MAINTAINABLE. NO SIGNS OF DISTRESS OBSERVED WHILE AT THE BEDSIDE. SYMMETRICAL CHEST RISE AND FALL, VS STABLE, WILL CONTINUE TO CLOSELY MONITOR AND FREQUENTLY ROUND.
--- NOTE | 2021-05-27 23:24 | NUR ---
BLOOD GLUCOSE CHECKED, 109, NO COVERAGE NEEDED PER PROTOCOL. NO SIGNS OF DISTRESS OBSERVED WHILE AT THE BEDSIDE. WILL CONTINUE TO CLOSELY MONITOR AND FREQUENTLY ROUND.
[2021-05-28] VITALS (32 sets, daily range): BP systolic 108–149; BP diastolic 65–99
--- NOTE | 2021-05-28 00:34 | NUR ---
VAP ORAL CARE, SUCTIONING, HYGIENE, POSITIONING AND SAFETY CHECKS PROVIDED. MINIMAL CLEAR SECRETIONS SUCTIONED FROM MOUTH/ET TUBE, AIRWAY, OPEN, CLEAR AND MAINTAINABLE. PATIENT TOLERATING CURRENT VENT SETTINGS WELL, CONTINUING PRONE POSITIONING PER MD ORDER, RR 22, OXYGEN SATURATION 95%, NO SIGNS OF DISTRESS OBSERVED WHILE AT THE BEDSIDE. SAFETY CHECKS CONTINUE TO BE IN PLACE, VS STABLE, WILL CONTINUE TO CLOSELY MONITOR AND FREQUENTLY ROUND.
[2021-05-28] MEDS: MIDAZOLAM MDV 100 MG in NACL 0.9% 80 ML IV PRN (01:05)
--- NOTE | 2021-05-28 02:12 | NUR ---
PATIENT RESTING IN PRONE POSITION, NO OBVIOUS SIGNS OF DISTRESS OBSERVED WHILE AT THE BEDSIDE. AIRWAY OPEN, CLEAR AND MAINTAINABLE. SAFETY CHECKS/MEASURES IN PLACE. TOLERATING CURRENT VENT SETTINGS WELL. WILL CONTINUE TO CLOSELY MONITOR AND FREQUENTLY ROUND.
[2021-05-28] MEDS: PROPOFOL 1000 MG/100 ML PREMIX 100 ML IV PRN ×7 (02:17→21:49)
[2021-05-28] MEDS: fentaNYL citrate - 50mL vial 2.5 MG in NACL 0.9% 200 ML IV PRN ×3 (02:19→18:13)
--- NOTE | 2021-05-28 04:16 | NUR ---
VAP ORAL CARE, SUCTIONING, HYGIENE, POSITIONING AND SAFETY CHECKS PROVIDED. MINIMAL CLEAR SECRETIONS SUCTIONED FROM MOUTH/ET TUBE, AIRWAY, OPEN, CLEAR AND MAINTAINABLE. PATIENT TOLERATING CURRENT VENT SETTINGS WELL, CONTINUING PRONE POSITIONING PER MD ORDER, RR 23, OXYGEN SATURATION 96%, NO SIGNS OF DISTRESS OBSERVED WHILE AT THE BEDSIDE. SAFETY CHECKS CONTINUE TO BE IN PLACE, VS STABLE, WILL CONTINUE TO CLOSELY MONITOR AND FREQUENTLY ROUND.
[2021-05-28] MEDS: NACL 0.9% 1,000 ML IV SCH ×2 (04:27→15:00)
--- NOTE | 2021-05-28 05:57 | NUR ---
BLOOD GLUCOSE CHECKED, 93, NO COVERAGE GIVEN PER PROTOCOL. NO SIGNS OF DISTRESS OBSERVED WHILE AT THE BEDSIDE. WILL CONTINUE TO CLOSELY MONITOR AND FREQUENTLY ROUND.
[2021-05-28] MEDS: BLOOD GLUCOSE MONITORING 1 DEV DEV FS SCH ×3 (06:21→18:26)
[2021-05-28 06:24] LABS: ANION GAP 3.4 (8-16); CARBON DIOXIDE 33.8 mmol/L (21-32); CREATININE 0.7 mg/dL (0.6-1.3); POTASSIUM 4.2 mmol/L (3.5-5.1)
[2021-05-28 06:25] LABS: BASOPHILS % (AUTO) 0.4 % (0.0-2.0); EOSINOPHILS # (AUTO) 0.1 K/uL (0-0.4); EOSINOPHILS % (AUTO) 0.7 % (0.0-4.0); HEMATOCRIT 36.7 % (36-52); HEMOGLOBIN 12.3 g/dL (12.0-18.0); LYMPHOCYTES % (AUTO) 10.5 % (20.5-51.1); MEAN CORPUSCULAR HEMOGLOBIN 28 pg (27-31); MEAN CORPUSCULAR HGB CONC 34 g/dL (33-37); MEAN CORPUSCULAR VOLUME 82.9 fL (80-94); MONOCYTES # (AUTO) 0.9 K/uL (0.8-1.0); MONOCYTES % (AUTO) 10.2 % (1.7-9.3); NEUTROPHILS # (AUTO) 7.2 K/uL (1.8-7.7); NEUTROPHILS % (AUTO) 78.2 % (42.2-75.2); PLATELET COUNT (AUTO) 347 K/uL (140-450); RED BLOOD CELL COUNT(AUTO) 4.42 MIL/uL (4.20-6.10); WHITE BLOOD COUNT (AUTO) 9.2 K/uL (4.8-10.8)
--- NOTE | 2021-05-28 07:17 | NUR ---
REPORT AND CARE ENDORSED TO DAYSHIFT RN, VS STABLE.
--- NOTE | 2021-05-28 08:10 | NUR ---
@ 0720 Change of shift report received from Alli PIMENTEL, pt still sedated on Propofol,versed and fenyanyl oxygenation via ventilator a/c p/c FIO2 75% O2 SAT 92% positive gag reflex and strong cough. oral,foleycare done and suctioned via ETT. Tube feeding via OGT placement checked and verified by auscultation vital AF @70ml/hr tolerating well no residual, osborne to gravity adequate urine output noted.
[2021-05-28] MEDS: ASCORBIC ACID 500 MG/5 ML ORASYR GT SCH ×2 (08:48→20:05)
[2021-05-28] MEDS: VITAMIN D 400 IU TAB GT SCH (08:48)
[2021-05-28] MEDS: DEXAMETHASONE 4 MG/ML VIAL IVP SCH (08:49)
[2021-05-28] MEDS: FAMOTIDINE 20 MG TAB PO SCH ×2 (08:49→20:06)
[2021-05-28] MEDS: MULTIVITAMIN/MINERALS 1 TAB PO SCH (08:49)
[2021-05-28] MEDS: APIXABAN 2.5 MG TAB PO SCH ×2 (08:56→20:06)
--- NOTE | 2021-05-28 10:00 | NUR ---
@0820 pt's father called updates over the phone on condition and ongoing treatments Fio2 75% via ventilator and he said will visit pt later. Air leak noted , tube displaced to left side by pt bite block applied ET tube adjusted by RT and sedation drip adjusted for comfort.
--- NOTE | 2021-05-28 13:59 | NUR ---
AUDIBLE LEAK HEARD AROUND ETT CUFF. ETT ADVANCED AND AIR ADDED TO FRY COOK BALLOON. NO AUDIBLE LEAK HEARD AFTER TROUBLE SHOOTING. WILL ORDER CXR FOR CORRECT PLACEMENT.
--- NOTE | 2021-05-28 15:00 | NUR ---
pt ETT still leaking audibly chest xray done. Rapid response called and Dr Rosio WINTERS MD responded to bedside assessed pt and put more air to ETT balloon and the air leak stopped vitals signs stable O2 SAT improved to 94% still on FIO2 75% and still on sedation.
--- NOTE | 2021-05-28 15:20 | NUR ---
05/28/21 RD FOLLOW UP COMPLETED PLEASE REFER TO NUTRITION ASSESSMENT UNDER CARE ACTIVITY FOR ESTIMATED NUTRITIONAL NEEDS. 1. RECOMMEND VITAL AF 1.2 @ 70 ML/HR X 8 HR DURING SUPINE AND PROSOURCE TID -THIS WILL PROVIDE 792 KCAL AND 72 GM OF PROTEIN. -PROPOFOL WILL ALSO PROVIDE ADDITIONAL CALORIES/DAY 2. RECOMMEND FREE WATER FLUSH OF 100 ML Q4H 3. CONTINUE VITAMIN C, VITAMIN D, AND MULTIVITAMIN ONCE DAILY 4. RD TO FOLLOW-UP 2-3 DAYS, HIGH RISK ABBE DAVIS RD
--- NOTE | 2021-05-28 15:55 | NUR ---
ETT 3.4 CM ABOVE LISA. 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 NO AUDIBLE LEAK, ADEQUATE VT ON VENT. WITH LOW LEAK %. WILL CONTINUE TO MONITOR.
--- NOTE | 2021-05-28 16:13 | NUR ---
Dr Buenrostro rounds updates on pt's ongoing treatments mentioned about the air leak via ETT,RT adjusted the ETT TO 27 CM as ordered by Dr Buenrostro. During pt's father visit requested for MD to call him so Dr Buenrostro called him and discuss at length,in depth about ECMO tx and pt's condition and response to ongoing tx
--- NOTE | 2021-05-28 16:13 | NUR ---
SPOKE TO REGARDING PT STATUS AND STATUS OF ETT. PHYSICIAN STATES TO ADVANCE 1 MORE cm. PHYSICIAN ALSO STATES TO PRONE PT, WILL PRONE WHEN HELP FROM STAFF IS AVAILABLE.
[2021-05-28] MEDS: LEVOFLOXACIN 750 MG/D5W PREMIX 150 ML IV SCH (18:11)
--- NOTE | 2021-05-28 19:10 | NUR ---
SBAR change of shift report to ELDON PIMENTEL updates on pt's condition, drips rate also pt needs to be prone tonight. it was delayed due to pt's condition as the ETT displaced readjusted by RT as per Dr YEAGER'S order. As at this time no changes in care plan and pt's condition.
--- NOTE | 2021-05-28 19:15 | NUR ---
RECEIVED REPORT FROM DAY SHIFT NURSE. PT IN BED, CURRENTLY ON SUPINE POSITION WITH HOB ELEVATED. PT WITH ETT CONNECTED TO VENT, AC/PC FIO2 80, RR 22, PEEP 14. NO SOB/DISTRESS NOTED AT THIS TIME, O2 SAT 93% AT THIS TIME. PT SEDATED, RASS -3. PT WITH CYNTHIA PICC LINE PATENT AND INTACT. PT ON PROPOFOL MCG/HR, [place] MG/HR, FENTANYL 2MCG/HR, NS 100/HR. OG TUBE IN PLACE, PT ON CONTINUOUS FEEDING. ABDI CATHETER IN PLACE DRAINING WELL. PT WITH NO S/X OF DISCOMFORT, FLACC 0. SAFETY MEASURES IN PLACE. WILL CONTINUE TO MONITOR.
--- NOTE | 2021-05-28 20:08 | NUR ---
PT TURNED AND REPOSITIONED. 10ML RESIDUAL NOTED, SCHEDULED MEDS GIVEN ORDERED. PT SUCTIONED ORALLY, SCANT SALIVA OBTAINED. NO S/SX OF PAIN OR DISCOMFORT NOTED, FLACC 0. SAFETY MEASURES IN PLACE. WILL CONTINUE TO MONITOR.
--- NOTE | 2021-05-28 23:25 | NUR ---
PT PLACED ON PRONE POSITION. FEEDING HELD. PT TOLERATED WELL. ETT CONNECTED TO VENT. NO SOB/DISTRESS NOTED. FLACC 0. PT SUCTIONED, SCANT SALIVA OBTAINED. PT KEPT COMFORTABLE. SAFETY MEASURES IN PLACE. WILL CONTINUE TO MONITOR.
[2021-05-29] VITALS (31 sets, daily range): BP systolic 103–158; BP diastolic 59–100
[2021-05-29] MEDS: PROPOFOL 1000 MG/100 ML PREMIX 100 ML IV PRN ×9 (00:15→22:26)
[2021-05-29] MEDS: BLOOD GLUCOSE MONITORING 1 DEV DEV FS SCH ×4 (00:26→18:00)
[2021-05-29] MEDS: MIDAZOLAM MDV 100 MG in NACL 0.9% 80 ML IV PRN ×2 (00:40→19:05)
[2021-05-29] MEDS: NACL 0.9% 1,000 ML IV SCH ×3 (01:22→20:10)
--- NOTE | 2021-05-29 02:16 | NUR ---
PT ASLEEP ON PRONE POSITION. VISIBLE CHEST RISE AND FALL NOTED. PT NOT IN DISTRESS. SP2 93. FLACC 0. DRIPS INFUSING WELL. MONITORS IN PLACE. PT KEPT COMFORTABLE. WILL CONTINUE TO MONITOR.
--- NOTE | 2021-05-29 04:36 | NUR ---
PT REPOSITIONED AND SUCTIONED. ORAL CARE, RYAN CARE, CATHETER CARE PROVIDED. PT TOLERATED WELL. PT NOT IN DISTRESS. RASS -3. FLACC 0. DRIPS INFUSING WELL. PT KEPT COMFORTABLE. SAFETY MEASURES IN PLACE. WILL CONTINUE TO MONITOR.
[2021-05-29] MEDS: fentaNYL citrate - 50mL vial 2.5 MG in NACL 0.9% 200 ML IV PRN ×3 (05:07→23:55)
[2021-05-29 06:23] LABS: BASOPHILS % (AUTO) 0.2 % (0.0-2.0); EOSINOPHILS # (AUTO) 0.1 K/uL (0-0.4); EOSINOPHILS % (AUTO) 1.2 % (0.0-4.0); HEMOGLOBIN 12.6 g/dL (12.0-18.0); LYMPHOCYTES # (AUTO) 1.2 K/uL (2.0-11.5); LYMPHOCYTES % (AUTO) 12.2 % (20.5-51.1); MEAN CORPUSCULAR HEMOGLOBIN 28 pg (27-31); MEAN CORPUSCULAR HGB CONC 33 g/dL (33-37); MEAN CORPUSCULAR VOLUME 83.7 fL (80-94); MONOCYTES # (AUTO) 1.1 K/uL (0.8-1.0); MONOCYTES % (AUTO) 10.6 % (1.7-9.3); NEUTROPHILS # (AUTO) 7.6 K/uL (1.8-7.7); NEUTROPHILS % (AUTO) 75.8 % (42.2-75.2); PLATELET COUNT (AUTO) 333 K/uL (140-450); RED BLOOD CELL COUNT(AUTO) 4.54 MIL/uL (4.20-6.10); RED CELL DISTRIBUTION WIDTH 14.3 % (11.6-13.7)
[2021-05-29 06:37] LABS: ANION GAP 3.3 (8-16); CARBON DIOXIDE 32.8 mmol/L (21-32); CREATININE 0.8 mg/dL (0.6-1.3); POTASSIUM 4.1 mmol/L (3.5-5.1)
--- NOTE | 2021-05-29 07:20 | NUR ---
Assumed pt care change of shift report received from Jose A PIMENTEL, pt in prone position fully sedated on Propofol, Fentanyl,and Versed gtt tolerating well vitals signs stable no sign of agitation noted oxygenation ventilated via ETT Fio2 75% O2 sat 94% hydration with IV fluid NS @100ml/hr tube feeding off as at this time osborne to gravity with adequate urine output noted.
--- NOTE | 2021-05-29 07:34 | NUR ---
REPORT GIVEN TO ENDY PIMENTEL FOR CONTINUITY OF CARE
[2021-05-29] MEDS: VITAMIN D 400 IU TAB GT SCH (09:00)
--- NOTE | 2021-05-29 09:30 | NUR ---
Dr Buenrostro was here no changes in care plan order received forchest x ray when repositioned in supine
[2021-05-29] MEDS: APIXABAN 2.5 MG TAB PO SCH ×2 (10:05→21:19)
[2021-05-29] MEDS: DEXAMETHASONE 4 MG/ML VIAL IVP SCH (10:06)
[2021-05-29] MEDS: ASCORBIC ACID 500 MG/5 ML ORASYR GT SCH ×2 (10:06→21:18)
[2021-05-29] MEDS: MULTIVITAMIN/MINERALS 1 TAB PO SCH (10:08)
[2021-05-29] MEDS: FAMOTIDINE 20 MG TAB PO SCH ×2 (10:09→21:18)
--- NOTE | 2021-05-29 12:00 | NUR ---
pt's father visit at the bedside head to toe updates on pt's condition,education on care plan encouraged them to verbalize their concerns continue support to alleviates anxiety
[2021-05-29] MEDS: LEVOFLOXACIN 750 MG/D5W PREMIX 150 ML IV SCH (17:14)
--- NOTE | 2021-05-29 18:50 | NUR ---
pt repositioned to supine assisted by four staff personel tolerated well no problem encountered . Complete bed bath given with linen changed oral care and suction via ett.
--- NOTE | 2021-05-29 19:15 | NUR ---
SBAR change of shift report to Tristin PIMENTEL updates on pt's condition vent settings,next prone time @0200 am, went overall the drips and rates. As at this time no changes in care plan and condition
--- NOTE | 2021-05-29 19:23 | NUR ---
pt's father and mother allowed back to bedside to visit because they wanted to see pt repositioned.
--- NOTE | 2021-05-29 19:25 | NUR ---
PTS PARENTS NEAR ROOM, PT CONDITION UPDATED TO FAMILY. WILL CONTINUE TO OBSERVE.
--- NOTE | 2021-05-29 19:45 | NUR ---
RECEIVED REPORT FROM DAY SHIFT PT SEDATED ON PROPOFOL, VERSED, AND FENTANYL DRIP. ETT TO VENT SIZE 8.0 25 @ TEETH. COARSE/RHONCHI LUNG SOUNDS. OGT IN PLACE VITAL AF RUNNING <30 ML RESIDUALS NOTED. ABDI CATH IN PLACE, DARK YELLOW URINE NOTED. SKIN INTACT. HOB>30 DEGREES. BED LOCKED IN LOWEST POSITION.
--- NOTE | 2021-05-29 21:45 | NUR ---
VAP ORAL CARE DONE; PT TURNED AND REPOSITIONED, NO S/S OF ACUTE DISTRESS NOTED. WILL CONTINUE TO OBSERVE.
--- NOTE | 2021-05-29 23:25 | NUR ---
PT SEDATED; FLACC 0. BS CHECKED 118 WILL CONTINUE TO OBSERVE
[2021-05-30] VITALS (27 sets, daily range): BP systolic 84–131; BP diastolic 38–85
[2021-05-30] MEDS: PROPOFOL 1000 MG/100 ML PREMIX 100 ML IV PRN ×8 (00:15→22:01)
--- NOTE | 2021-05-30 02:54 | NUR ---
PT TOLERATING GT FEEDINGS, NO S/S OF ACUTE DISTRESS. WILL CONTINUE TO OBSERVE.
--- NOTE | 2021-05-30 05:00 | NUR ---
PT PLACED IN PRONE POSITION, PT TOLERATED WELL. LINEN CHANGED. PT SEDATED RASS-3, FLACC 0. NO ACUTE DISTRESS NOTED.
[2021-05-30] MEDS: BLOOD GLUCOSE MONITORING 1 DEV DEV FS SCH ×5 (05:14→23:33)
--- NOTE | 2021-05-30 05:30 | NUR ---
PROPOFOL DECREASED DUE TO HYPOTENSION; NOW @ 20 MCG/KG/MIN, SBP NOW 90-100S, WILL CONTINUE TO OBSERVE.
[2021-05-30] MEDS: NACL 0.9% 1,000 ML IV SCH (06:13)
--- NOTE | 2021-05-30 07:20 | NUR ---
Change of shift report received from Tristin RN met pt in prone position Ett to vent tolerating well vitals signs stable no sign of distress noted ROM to all extremities, oral care, suction via ett, osborne care will continue tomonitor and treat.
[2021-05-30] MEDS: fentaNYL citrate - 50mL vial 2.5 MG in NACL 0.9% 200 ML IV PRN (09:00)
--- NOTE | 2021-05-30 10:00 | NUR ---
All scheduled meds given no adverse reaction tube still on hold as at this time, oral care and suctioned via ett vitals signs stable. Pt's mother and father were here updates on pt's condition, response to tx .
[2021-05-30] MEDS: APIXABAN 2.5 MG TAB PO SCH ×2 (10:11→21:42)
[2021-05-30] MEDS: FAMOTIDINE 20 MG TAB PO SCH ×2 (10:11→21:45)
[2021-05-30] MEDS: MULTIVITAMIN/MINERALS 1 TAB PO SCH (10:12)
[2021-05-30] MEDS: VITAMIN D 400 IU TAB GT SCH (10:12)
[2021-05-30] MEDS: ASCORBIC ACID 500 MG/5 ML ORASYR GT SCH ×2 (10:13→21:40)
[2021-05-30] MEDS: DEXAMETHASONE 4 MG/ML VIAL IVP SCH (10:13)
[2021-05-30] MEDS ORDERED: MIDAZOLAM MDV 50 MG in NACL 0.9% 40 ML IV PRN (10:20)
[2021-05-30 10:44] LABS: BASOPHILS % (AUTO) 0.1 % (0.0-2.0); EOSINOPHILS # (AUTO) 0.1 K/uL (0-0.4); EOSINOPHILS % (AUTO) 0.6 % (0.0-4.0); HEMATOCRIT 34.9 % (36-52); HEMOGLOBIN 11.9 g/dL (12.0-18.0); LYMPHOCYTES # (AUTO) 0.8 K/uL (2.0-11.5); LYMPHOCYTES % (AUTO) 8.2 % (20.5-51.1); MEAN CORPUSCULAR HEMOGLOBIN 28 pg (27-31); MEAN CORPUSCULAR HGB CONC 34 g/dL (33-37); MEAN CORPUSCULAR VOLUME 82.8 fL (80-94); MONOCYTES # (AUTO) 0.4 K/uL (0.8-1.0); NEUTROPHILS # (AUTO) 8.6 K/uL (1.8-7.7); NEUTROPHILS % (AUTO) 87.1 % (42.2-75.2); PLATELET COUNT (AUTO) 282 K/uL (140-450); RED BLOOD CELL COUNT(AUTO) 4.22 MIL/uL (4.20-6.10); RED CELL DISTRIBUTION WIDTH 14.3 % (11.6-13.7); WHITE BLOOD COUNT (AUTO) 9.8 K/uL (4.8-10.8)
[2021-05-30 11:00] LABS: MAGNESIUM 2.1 mg/dL (1.8-2.4); PHOSPHORUS 3.4 mg/dL (2.5-4.9)
[2021-05-30 11:01] LABS: ALBUMIN 1.8 g/dL (3.4-5.0); ANION GAP 9.1 (8-16); CARBON DIOXIDE 28.3 mmol/L (21-32); CREATININE 0.8 mg/dL (0.6-1.3); POTASSIUM 4.4 mmol/L (3.5-5.1); TOTAL BILIRUBIN 0.7 mg/dL (0.0-1.0)
[2021-05-30] MEDS: MIDAZOLAM MDV 100 MG in NACL 0.9% 80 ML IV PRN (12:30)
--- NOTE | 2021-05-30 13:15 | NUR ---
There was no order this morning for labs drawn all are WNL no need to notify MD. Oral care,suction ROM to all extremities vitals signs stable afebrile, blood sugar was 126 no need for coverage as at this time. Skin checked no break down noted
--- NOTE | 2021-05-30 13:55 | NUR ---
05/30/21 RD FOLLOW UP COMPLETED PLEASE REFER TO NUTRITION ASSESSMENT UNDER CARE ACTIVITY FOR ESTIMATED NUTRITIONAL NEEDS. 1. RECOMMEND VITAL AF 1.2 @ 60 ML/HR X 8 HR DURING SUPINE AND PROSOURCE TID -THIS WILL PROVIDE 756 KCAL AND 81 GM OF PROTEIN. -PROPOFOL WILL ALSO PROVIDE ADDITIONAL CALORIES/DAY 2. CONTINUE FREE WATER FLUSH OF 200 ML Q8H 3. CONTINUE VITAMIN C, VITAMIN D, AND MULTIVITAMIN ONCE DAILY 4. RD TO FOLLOW-UP 2-3 DAYS, HIGH RISK ABBE DAVIS RD
--- NOTE | 2021-05-30 14:30 | NUR ---
@1350 Dr Buenrostro's rounds notified him that there was no AM labs, drawn all WNL, pt still on iv main NS @100 CC/HR, order received D/C, NO BM for 4 days, ABG vent FIO2 decreased to 60% tolerating well still in prone position as at this time no changes in care plan
[2021-05-30] MEDS: LEVOFLOXACIN 750 MG/D5W PREMIX 150 ML IV SCH (17:19)
--- NOTE | 2021-05-30 18:10 | NUR ---
PT'S dad and mother were here visiting again updates on pt's condition as at this time no chnages in pt's condition and care plan Blood sugar was 127 no coverage required All through the shift pt tolerates well care and treatments
--- NOTE | 2021-05-30 19:15 | NUR ---
SBAR report to Honey Garcia RN updates at the bedside mentioned that pt need to be supine at 2100. ALL drips still on sedation ongoing no changes in care plan and pt's condition.
[2021-05-31] VITALS (25 sets, daily range): BP systolic 93–132; BP diastolic 60–84
[2021-05-31] MEDS: PROPOFOL 1000 MG/100 ML PREMIX 100 ML IV PRN ×9 (01:45→23:34)
[2021-05-31] MEDS: fentaNYL citrate - 50mL vial 2.5 MG in NACL 0.9% 200 ML IV PRN ×3 (03:59→22:35)
[2021-05-31] MEDS: MIDAZOLAM MDV 100 MG in NACL 0.9% 80 ML IV PRN (04:12)
[2021-05-31] MEDS: BLOOD GLUCOSE MONITORING 1 DEV DEV FS SCH ×4 (05:41→23:56)
[2021-05-31] MEDS: ASCORBIC ACID 500 MG/5 ML ORASYR GT SCH ×2 (08:59→20:47)
[2021-05-31] MEDS: VITAMIN D 400 IU TAB GT SCH (08:59)
[2021-05-31] MEDS: DEXAMETHASONE 4 MG/ML VIAL IVP SCH (09:01)
[2021-05-31] MEDS: MULTIVITAMIN/MINERALS 1 TAB PO SCH (09:07)
[2021-05-31] MEDS: APIXABAN 2.5 MG TAB PO SCH ×2 (09:07→20:46)
[2021-05-31] MEDS: FAMOTIDINE 20 MG TAB PO SCH ×2 (09:07→20:47)
--- NOTE | 2021-05-31 10:00 | NUR ---
ADMINISTERED SCHEDULED MEDS PER MD ORDER, MED EDUCATION PROVIDED, REINFORCEMENT NEEDED. G TUBE RESIDUAL 5ML, FLUSHED BEFORE AND AFTER MEDS. MORNING HYGIENE PROVIDED: ORAL CARE, CHG BATH, CATHETER CARE, CHANGED ALL DIRTY LINEN. PATIENT REPOSITIONED AND OFFLOADED PRESSURE WITH PILLOWS. FISHERIES TECHNICIAN IN PLACE, SAFETY MEASURES IN PLACE.
--- NOTE | 2021-05-31 10:30 | NUR ---
UNIT UNDERSTAFFED, LOCATING STAFF FROM OTHER UNITS FOR AID PRONING PATIENT.
--- NOTE | 2021-05-31 10:50 | NUR ---
PATIENT FATHER AT BEDSIDE AT THIS TIME. UPDATED ON PATIENT CONDITION, ALL QUESTIONS ANSWERED.
--- NOTE | 2021-05-31 11:09 | NUR ---
PATIENT MOTHER AT BEDSIDE AT THIS TIME. UPDATED ON PATIENT CONDITION, ALL QUESTIONS ANSWERED.
[2021-05-31 11:53] LABS: BASOPHILS % (AUTO) 0.3 % (0.0-2.0); EOSINOPHILS # (AUTO) 0.1 K/uL (0-0.4); HEMATOCRIT 33.8 % (36-52); HEMOGLOBIN 11.9 g/dL (12.0-18.0); MEAN CORPUSCULAR HEMOGLOBIN 30 pg (27-31); MEAN CORPUSCULAR HGB CONC 35 g/dL (33-37); MEAN CORPUSCULAR VOLUME 84.7 fL (80-94); MONOCYTES # (AUTO) 0.7 K/uL (0.8-1.0); MONOCYTES % (AUTO) 6.2 % (1.7-9.3); NEUTROPHILS # (AUTO) 9.7 K/uL (1.8-7.7); NEUTROPHILS % (AUTO) 83.5 % (42.2-75.2); PLATELET COUNT (AUTO) 275 K/uL (140-450); RED BLOOD CELL COUNT(AUTO) 3.99 MIL/uL (4.20-6.10); RED CELL DISTRIBUTION WIDTH 14.7 % (11.6-13.7); WHITE BLOOD COUNT (AUTO) 11.6 K/uL (4.8-10.8)
--- NOTE | 2021-05-31 11:57 | NUR ---
SHOOK SPLICER, KRISTEN CALLED, REQUESTING AID IN PRONING PATIENT NOT ENOUGH STAFF IN ICU TO HELP.
--- NOTE | 2021-05-31 12:15 | NUR ---
PATIENT PLACED IN PRONE POSITION WITH RN, SURFACE TO AIR WEAPONS OFFICER, AND RT ASSISSTANCE AT THIS TIME. ACTIVITY TOLERATED FAIRLY, NO SIGNS OF ACUTE DISTRESS NOTED. WILL MONITOR CLOSELY.
--- NOTE | 2021-05-31 12:15 | NUR ---
PATIENT PLACED PRONE WITH STAFF WORKING TOGETHER - PATIENT TOLERATED WELL - NO RESP DISTRESS NOTED -
[2021-05-31 12:42] LABS: ANION GAP 11.9 (8-16); CARBON DIOXIDE 25.9 mmol/L (21-32); CREATININE 0.7 mg/dL (0.6-1.3); POTASSIUM 3.8 mmol/L (3.5-5.1)
[2021-05-31 12:43] LABS: PHOSPHORUS 2.7 mg/dL (2.5-4.9)
--- NOTE | 2021-05-31 15:26 | NUR ---
PATIENT CALM, SEDATED TO RASS -3, BREATHING EVEN AND UNLABORED, NO SIGNS OF ACUTE DISTRESS NOTED.
[2021-05-31] MEDS: LEVOFLOXACIN 750 MG/D5W PREMIX 150 ML IV SCH (18:00)
--- NOTE | 2021-05-31 19:20 | NUR ---
ENDORSED TO NIGHTSHIFT NURSE FOR CONTINUITY OF CARE. PATIENT STABLE AT THIS TIME.
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
--- NOTE | 2021-05-31 20:23 | NUR ---
VAP ORAL CARE, HYGIENE, SAFETY CHECKS, SUCTIONING AND COMFORT MEASURES IN PLACE. MINIMAL CLEAR SECRETIONS SUCTIONED FROM ET TUBE, AIRWAY OPEN, CLEAR AND MAINTAINABLE. PATIENT TOLERATING CURRENT THERAPIES WELL. WILL CONTINUE TO CLOSELY MONITOR AND FREQUENTLY ROUND.
--- NOTE | 2021-05-31 20:37 | NUR ---
SCHEDULED MEDICATIONS GIVEN ORDERED BY MD, NO SIGNS OF DISTRESS OBSERVED WHILE AT THE BEDSIDE. WILL CONTINUE TO CLOSELY MONITOR AND FREQUENTLY ROUND.
--- NOTE | 2021-05-31 22:35 | NUR ---
PATIENT RESTING, INTUBATED AND SEDATED, NO SIGNS OF DISTRESS OBSERVED WHILE AT THE BEDSIDE. SYMMETRICAL CHEST RISE AND FALL OBSERVED. PATIENT AIRWAY OPEN, CLEAR AND MAINTAINABLE. TOLERATING CURRENT VENT SETTINGS WELL. WILL CONTINUE TO CLOSELY MONITOR AND FREQUENTLY ROUND.
[2021-06-01] VITALS (26 sets, daily range): BP systolic 94–148; BP diastolic 44–90
--- NOTE | 2021-06-01 00:03 | NUR ---
BLOOD GLUCOSE CHECKED, 80, NO COVERAGE GIVEN PER PROTOCOL, NO SIGNS OF DISTRESS OBSERVED WHILE AT THE BEDSIDE. WILL CONTINUE TO CLOSELY MONITOR AND FREQUENTLY ROUND.
--- NOTE | 2021-06-01 00:48 | NUR ---
VAP ORAL CARE, HYGIENE, SAFETY CHECKS, SUCTIONING AND COMFORT MEASURES IN PLACE. MINIMAL CLEAR/NELSON SECRETIONS SUCTIONED FROM ET TUBE, AIRWAY OPEN, CLEAR AND MAINTAINABLE. PATIENT TOLERATING CURRENT THERAPIES AND VENT SETTINGS WELL. WILL CONTINUE TO CLOSELY MONITOR AND FREQUENTLY ROUND.
--- NOTE | 2021-06-01 02:05 | NUR ---
PATIENT RESTING, AIRWAY OPEN, CLEAR AND MAINTAINABLE. SUCTIONING, HYGIENE AND COMFORT MEASURES PROVIDED. SYMMETRICAL CHEST RISE AND FALL OBSERVED. NO SIGNS OF DISTRESS OBSERVED WHILE AT THE BEDSIDE. WILL CONTINUE TO CLOSELY MONITOR AND FREQUENTLY ROUND.
[2021-06-01] MEDS: PROPOFOL 1000 MG/100 ML PREMIX 100 ML IV PRN ×7 (02:17→20:42)
--- NOTE | 2021-06-01 04:30 | NUR ---
PATIENT TURNED FROM PRONE TO SUPINE PER MD ORDER, WITH MULTIPLE RN ASSISTANCE AND RT AT BEDSIDE. HOB 30 DEGREES, TOLERATING VENT SETTINGS AND POSITIONING WELL. MORNING CARE, VAP ORAL CARE, SUCTIONING, HYGIENE, POSITIONING AND SAFETY CHECKS PROVIDED. MINIMAL CLEAR/NELSON SECRETIONS SUCTIONED FROM MOUTH/ET TUBE, AIRWAY, OPEN, CLEAR AND MAINTAINABLE. PATIENT TOLERATING CURRENT VENT SETTINGS WELL, CONTINUING PRONE POSITIONING PER MD ORDER, RR 23, OXYGEN SATURATION 97%, NO SIGNS OF DISTRESS OBSERVED WHILE AT THE BEDSIDE. SAFETY CHECKS CONTINUE TO BE IN PLACE, VS STABLE, WILL CONTINUE TO CLOSELY MONITOR AND FREQUENTLY ROUND.
--- NOTE | 2021-06-01 04:41 | NUR ---
0430 TURNED PATIENT TO SUPINE POSITION. CHANGED PATIENT ET TAPE TO ANCHOR FAST. LIP LINE 25. SXNED LG AMTS OF BLOODY YELLOW SECRETIONS
[2021-06-01] MEDS: BLOOD GLUCOSE MONITORING 1 DEV DEV FS SCH ×4 (06:01→23:40)
--- NOTE | 2021-06-01 06:10 | NUR ---
BLOOD GLUCOSE CHECKED, 57, D50 GIVEN PER MD ORDER/PROTOCOL. NO SIGNS OF DISTRESS OBSERVED WHILE AT THE BEDSIDE. WILL CONTINUE TO CLOSELY MONITOR AND FREQUENTLY ROUND.
--- NOTE | 2021-06-01 06:15 | NUR ---
BLOOD GLUCOSE RECHECKED, 94, NO COVERAGE GIVEN PER PROTOCOL, VS STABLE, NO SIGNS OF DISTRESS OBSERVED WHILE AT THE BEDSIDE. WILL CONTINUE TO CLOSELY MONITOR AND FREQUENTLY ROUND.
--- NOTE | 2021-06-01 07:08 | NUR ---
REPORT AND CARE ENDORSED TO DAYSHIFT RN, VS STABLE.
--- NOTE | 2021-06-01 07:15 | NUR ---
RECEIVED CARE AND REPORT FROM [facility] NURSE. PATIENT RASS -2, PATIENT APPROXIMATE DRY WEIGHT 156 KG. INTUBATED AND SEDATED, ETT TO VENT SETTINGS AC/PC FIO2 45%, RR 22, AND PEEP 14. RESPIRATIONS EVEN AND UNLABORED WITH NO SOB OR RESPIRATORY DISTRESS. PT PRONE POSITION PER MD ORDER. PATIENT HAS AN OGT TUBE IN PLACE, SECURED AND INTACT, FEEDING HELD WHILE IN PRONE POSITIONING. PT SR ON MONITOR, NO SIGNS OF DISTRESS OBSERVED WHILE AT THE BEDSIDE. RIGHT UPPER ARM PICC LINE DOUBLE LUMEN CLEAN, DRY AND INTACT. IV DRIPS FOUND RUNNING AT FENTANYL 2 MCG/KG/HR, PROPOFOL 40 MCG/KG/MIN, VERSED 5 MG/HR, AND NS 0.9% 10 ML/HR. PATIENT HAS A ABDI CATHETER IN PLACE DRAINING VIA GRAVITY. SKIN WARM AND DRY TO TOUCH. SAFETY MEASURES IN PLACE. WILL CONTINUE TO MONITOR
[2021-06-01] MEDS: APIXABAN 2.5 MG TAB PO SCH ×2 (08:16→20:59)
[2021-06-01] MEDS: MULTIVITAMIN/MINERALS 1 TAB PO SCH (08:19)
[2021-06-01] MEDS: FAMOTIDINE 20 MG TAB PO SCH ×2 (08:20→20:51)
[2021-06-01] MEDS: VITAMIN D 400 IU TAB GT SCH (08:20)
--- NOTE | 2021-06-01 08:20 | NUR ---
ADMINISTERED SCHED MED PRESCRIBED PER MD ORDER. PT TOLERATED WELL. NO SIGNS OF DISTRESS. SAFETY MEASURES IN PLACE. WILL CONTINUE TO MONITOR
[2021-06-01] MEDS: ASCORBIC ACID 500 MG/5 ML ORASYR GT SCH ×2 (08:22→20:51)
[2021-06-01] MEDS: DEXAMETHASONE 4 MG/ML VIAL IVP SCH (08:22)
--- NOTE | 2021-06-01 09:15 | NUR ---
ADMINISTERED SCHED MED PRESCRIBED PER MD ORDER. PT TOLERATED WELL. SAFETY MEASURES IN PLACE. WILL CONTINUE TO MONITOR
[2021-06-01] MEDS: fentaNYL citrate - 50mL vial 2.5 MG in NACL 0.9% 200 ML IV PRN ×2 (09:45→15:45)
[2021-06-01 10:28] LABS: BASOPHILS % (AUTO) 0.3 % (0.0-2.0); EOSINOPHILS # (AUTO) 0.1 K/uL (0-0.4); EOSINOPHILS % (AUTO) 0.7 % (0.0-4.0); HEMATOCRIT 34.5 % (36-52); HEMOGLOBIN 11.4 g/dL (12.0-18.0); LYMPHOCYTES # (AUTO) 1.1 K/uL (2.0-11.5); LYMPHOCYTES % (AUTO) 9.3 % (20.5-51.1); MEAN CORPUSCULAR HEMOGLOBIN 28 pg (27-31); MEAN CORPUSCULAR VOLUME 84.6 fL (80-94); MONOCYTES % (AUTO) 8.9 % (1.7-9.3); NEUTROPHILS # (AUTO) 9.6 K/uL (1.8-7.7); NEUTROPHILS % (AUTO) 80.8 % (42.2-75.2); PLATELET COUNT (AUTO) 109 K/uL (140-450); RED BLOOD CELL COUNT(AUTO) 4.08 MIL/uL (4.20-6.10); RED CELL DISTRIBUTION WIDTH 14.3 % (11.6-13.7); WHITE BLOOD COUNT (AUTO) 11.8 K/uL (4.8-10.8)
--- NOTE | 2021-06-01 10:30 | NUR ---
VAP ORAL CARE PROVIDED TO PATIENT. WILL CONTINUE TO MONITOR
[2021-06-01 10:31] LABS: MEAN CORPUSCULAR HGB CONC 33 g/dL (33-37)
[2021-06-01 10:42] LABS: ANION GAP 8.5 (8-16); CARBON DIOXIDE 28.8 mmol/L (21-32); POTASSIUM 3.3 mmol/L (3.5-5.1)
[2021-06-01 10:46] LABS: PHOSPHORUS 2.9 mg/dL (2.5-4.9)
[2021-06-01 10:49] LABS: CREATININE 0.8 mg/dL (0.6-1.3)
--- NOTE | 2021-06-01 12:00 | NUR ---
PT BLOOD SUGAR IS 109. NO INSULIN NEEDED. SAFETY MEASURES IN PLACE. WILL CONTINUE TO MONITOR
--- NOTE | 2021-06-01 13:15 | NUR ---
PT DAD AT WINDOW VISITING PATIENT. UPDATE GIVEN
--- NOTE | 2021-06-01 13:55 | NUR ---
06/01/21 RD FOLLOW UP ASSESSMENT COMPLETED PLEASE REFER TO NUTRITION ASSESSMENT UNDER CARE ACTIVITY FOR ESTIMATED NUTRITIONAL NEEDS. RD RECOMMENDATIONS: 1. CONTINUE VITAL AF 1.2 @ 60 ML/HR X 8 HR DURING SUPINE AND PROSOURCE TID -THIS WILL PROVIDE 756 KCAL AND 81 GM OF PROTEIN. -PROPOFOL WILL ALSO PROVIDE ADDITIONAL CALORIES/DAY 2. CONTINUE FREE WATER FLUSH OF 200 ML Q8H 3. CONTINUE VITAMIN C, VITAMIN D, AND MULTIVITAMIN ONCE DAILY 4. RD TO FOLLOW-UP 2-3 DAYS, HIGH RISK REGULO DUARTE, RD
--- NOTE | 2021-06-01 14:15 | NUR ---
VAP ORAL CARE PROVIDED TO PATIENT. WILL CONTINUE TO MONITOR
[2021-06-01] MEDS ORDERED: POTASSIUM CHLORIDE 20% 40 MEQ/15 ML UDC PO PRN (15:00)
--- NOTE | 2021-06-01 15:01 | NUR ---
PT WAS PRONED W TICK ERADICATOR IN ICU BED 7, REMOVED MICHELLE PRIOR TO PRONING - TAPE PLACED WITH GAUZE AND DRESSINGS FOR SKIN PROTECTION AND TO AID WOUND HEALING. PT HAS A SMALL LACERATION ON HIS LEFT UPPER LIP FROM PRIOR PRONING. PATIENT BIT DOWN ON TONGUE AND BLEED ORALLY FOR A SHORT TIME BEFORE SETTLING DOWN. PT MAINTAIN SATS AND TIDAL VOLUMES DURING FLIP.
[2021-06-01] MEDS: ACETAMINOPHEN 325 MG TAB PO PRN (15:02)
[2021-06-01] MEDS: POTASSIUM CHLORIDE 20% 40 MEQ/15 ML UDC GT PRN (15:44)
--- NOTE | 2021-06-01 17:30 | NUR ---
PT MOM AT WINDOW VISITING PATIENT. UPDATE GIVEN
[2021-06-01] MEDS: LEVOFLOXACIN 750 MG/D5W PREMIX 150 ML IV SCH (17:40)
--- NOTE | 2021-06-01 18:00 | NUR ---
PT BLOOD SUGAR IS 98. NO INSULIN NEEDED AT THIS TIME. WILL CONTINUE TO MONITOR
--- NOTE | 2021-06-01 19:15 | NUR ---
ENDORSED TO NIGHTSHIFT NURSE FOR CONTINUITY OF CARE
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
--- NOTE | 2021-06-01 20:16 | NUR ---
VAP ORAL CARE, HYGIENE, SAFETY CHECKS, SUCTIONING AND COMFORT MEASURES IN PLACE. MODERATE CLEAR/GREEN TINGED SECRETIONS SUCTIONED FROM ET TUBE, AIRWAY OPEN, CLEAR AND MAINTAINABLE. NO SIGNS OF DISTRESS OBSERVED WHILE AT THE BEDSIDE. PATIENT TOLERATING CURRENT THERAPIES WELL. WILL CONTINUE TO CLOSELY MONITOR AND FREQUENTLY ROUND.
--- NOTE | 2021-06-01 20:58 | NUR ---
SCHEDULED MEDICATIONS GIVEN ORDERED BY MD, NO SIGNS OF DISTRESS OBSERVED, WILL CONTINUE TO CLOSELY MONITOR AND FREQUENTLY ROUND.
[2021-06-01] MEDS ORDERED: NOREPINEPHRINE 4 MG/4 ML VIAL IV ONE (22:31)
--- NOTE | 2021-06-01 23:35 | NUR ---
BLOOD GLUCOSE CHECKED, 82, NO COVERAGE GIVEN PER PROTOCOL. NO SIGNS OF DISTRESS OBSERVED. WILL CONTINUE TO CLOSELY MONITOR AND FREQUENTLY ROUND.
[2021-06-02] VITALS (26 sets, daily range): BP systolic 93–123; BP diastolic 50–84
--- NOTE | 2021-06-02 00:08 | NUR ---
VAP ORAL CARE, HYGIENE, SAFETY CHECKS, SUCTIONING AND COMFORT MEASURES IN PLACE. MINIMAL CLEAR/GREEN TINGED SECRETIONS SUCTIONED FROM ET TUBE, AIRWAY OPEN, CLEAR AND MAINTAINABLE. NO SIGNS OF DISTRESS OBSERVED WHILE AT THE BEDSIDE. PATIENT TOLERATING CURRENT THERAPIES WELL. WILL CONTINUE TO CLOSELY MONITOR AND FREQUENTLY ROUND.
[2021-06-02] MEDS: PROPOFOL 1000 MG/100 ML PREMIX 100 ML IV PRN ×8 (00:12→21:20)
--- NOTE | 2021-06-02 02:06 | NUR ---
PATIENT RESTING, CALM, NO SIGNS OF DISTRESS OBSERVED WHILE AT THE BEDSIDE. PATIENT TOLERATING CURRENT THERAPIES AND VENT SETTINGS WELL. SYMMETRICAL CHEST RISE A FALL OBSERVED. AIRWAY OPEN, CLEAR AND MAINTAINABLE. SUCTIONING, SAFETY CHECKS AND COMFORT MEASURES PROVIDED. VS STABLE, WILL CONTINUE TO CLOSELY MONITOR AND FREQUENTLY ROUND.
[2021-06-02] MEDS: fentaNYL citrate - 50mL vial 2.5 MG in NACL 0.9% 200 ML IV PRN ×2 (02:52→21:16)
[2021-06-02] MEDS: MIDAZOLAM MDV 100 MG in NACL 0.9% 80 ML IV PRN (03:39)
--- NOTE | 2021-06-02 04:30 | NUR ---
PT WAS SUPINED AND ETT RE-TAPED/SECURED PT HAD SOME BREAKDOWN AND RN IS AWARE
--- NOTE | 2021-06-02 04:30 | NUR ---
PATIENT TURNED FROM PRONE TO SUPINE AT 0430, PER MD ORDER, WITH MULTIPLE RN ASSISTANCE AND RT AT BEDSIDE. HOB 30 DEGREES, TOLERATING VENT SETTINGS AND POSITIONING WELL. MORNING CARE, VAP ORAL CARE, SUCTIONING, HYGIENE, POSITIONING AND SAFETY CHECKS PROVIDED. MINIMAL CLEAR/NELSON SECRETIONS SUCTIONED FROM MOUTH/ET TUBE, AIRWAY, OPEN, CLEAR AND MAINTAINABLE. PATIENT TOLERATING CURRENT VENT SETTINGS WELL, CONTINUING PRONE POSITIONING PER MD ORDER, RR 21, OXYGEN SATURATION 95%, NO SIGNS OF DISTRESS OBSERVED WHILE AT THE BEDSIDE. SAFETY CHECKS IN PLACE, VS STABLE, WILL CONTINUE TO CLOSELY MONITOR AND FREQUENTLY ROUND.
--- NOTE | 2021-06-02 06:01 | NUR ---
BLOOD GLUCOSE CHECKED, 77, NO COVERAGE NEEDED PER PROTOCOL, NO SIGNS OF DISTRESS OBSERVED WHILE AT THE BEDSIDE. WILL CONTINUE TO CLOSELY MONITOR AND FREQUENTLY ROUND.
[2021-06-02] MEDS: BLOOD GLUCOSE MONITORING 1 DEV DEV FS SCH ×4 (06:09→23:48)
[2021-06-02 06:43] LABS: BASOPHILS % (AUTO) 0.4 % (0.0-2.0); EOSINOPHILS # (AUTO) 0.1 K/uL (0-0.4); EOSINOPHILS % (AUTO) 0.6 % (0.0-4.0); HEMATOCRIT 35.7 % (36-52); LYMPHOCYTES # (AUTO) 1.5 K/uL (2.0-11.5); LYMPHOCYTES % (AUTO) 14.8 % (20.5-51.1); MEAN CORPUSCULAR HEMOGLOBIN 28 pg (27-31); MEAN CORPUSCULAR HGB CONC 34 g/dL (33-37); MEAN CORPUSCULAR VOLUME 83.8 fL (80-94); MONOCYTES # (AUTO) 1.2 K/uL (0.8-1.0); MONOCYTES % (AUTO) 11.7 % (1.7-9.3); NEUTROPHILS # (AUTO) 7.4 K/uL (1.8-7.7); NEUTROPHILS % (AUTO) 72.5 % (42.2-75.2); PLATELET COUNT (AUTO) 253 K/uL (140-450); RED BLOOD CELL COUNT(AUTO) 4.26 MIL/uL (4.20-6.10); RED CELL DISTRIBUTION WIDTH 14.1 % (11.6-13.7); WHITE BLOOD COUNT (AUTO) 10.2 K/uL (4.8-10.8)
[2021-06-02 07:07] LABS: ANION GAP 6.3 (8-16); CARBON DIOXIDE 31.5 mmol/L (21-32); CREATININE 0.7 mg/dL (0.6-1.3); POTASSIUM 3.8 mmol/L (3.5-5.1); TOTAL BILIRUBIN 0.8 mg/dL (0.0-1.0)
--- NOTE | 2021-06-02 07:17 | NUR ---
CARE AND REPORT ENDORSED TO DAYSHIFT RN, VS STABLE.
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
--- NOTE | 2021-06-02 09:15 | NUR ---
ADMINISTERED SCHED MED PRESCRIBED PER MD ORDER. PT TOLERATED WELL. SAFETY MEASURES IN PLACE. WILL CONTINUE TO MONITOR
[2021-06-02] MEDS: MULTIVITAMIN/MINERALS 1 TAB PO SCH (09:16)
[2021-06-02] MEDS: FAMOTIDINE 20 MG TAB PO SCH ×2 (09:16→21:59)
[2021-06-02] MEDS: VITAMIN D 400 IU TAB GT SCH (09:16)
[2021-06-02] MEDS: ASCORBIC ACID 500 MG/5 ML ORASYR GT SCH ×2 (09:17→21:59)
[2021-06-02] MEDS: DEXAMETHASONE 4 MG/ML VIAL IVP SCH (09:19)
[2021-06-02] MEDS: APIXABAN 2.5 MG TAB PO SCH ×2 (09:19→21:59)
--- NOTE | 2021-06-02 10:30 | NUR ---
DR. PARRISH AT BEDSIDE ASSESSING PATIENT
--- NOTE | 2021-06-02 11:30 | NUR ---
DAD AT WINDOW VISITING PATIENT. UPDATE GIVEN
--- NOTE | 2021-06-02 12:00 | NUR ---
PT BLOOD SUGAR IS 114. NO INSULIN NEEDED AT THIS TIME. SAFETY MEASURES IN PLACE. WILL CONTINUE TO MONITOR
--- NOTE | 2021-06-02 12:28 | NUR ---
MOM AT WINDOW VISITING PATIENT. UPDATE GIVEN
--- NOTE | 2021-06-02 14:01 | NUR ---
REPOSITIONED PATIENT COMFORTABLY PRESCRIBED PER MD ORDER. PT TOLERATED FAIRLY. SAFETY MEASURES IN PLACE. WILL CONTINUE TO MONITOR
--- NOTE | 2021-06-02 15:10 | NUR ---
PROVIDED ORAL VAP CARE. PT TOLERATED WELL. WILL CONTINUE TO MONITOR
--- NOTE | 2021-06-02 17:30 | NUR ---
DAD AT BEDSIDE VISITING PATIENT. UPDATE GIVEN. SAFETY MEASURES IN PLACE. WILL CONTINUE TO MONITOR
[2021-06-02] MEDS: LEVOFLOXACIN 750 MG/D5W PREMIX 150 ML IV SCH (17:49)
--- NOTE | 2021-06-02 18:00 | NUR ---
MOM AT WINDOW VISITING PATIENT. UPDATE GIVEN. SAFETY MEASURES IN PLACE. WILL CONTINUE TO MONITOR
--- NOTE | 2021-06-02 19:15 | NUR ---
ENDORSED TO NIGHTSHIFT NURSE FOR CONTINUITY OF CARE
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
--- NOTE | 2021-06-02 20:34 | NUR ---
VAP ORAL CARE, REPOSITIONING, ET/ORAL SUCTIONING, SAFETY CHECKS AND HYGIENE PROVIDED. MINIMAL NELSON SECRETIONS SUCTIONED FROM ET TUBE. AIRWAY OPEN, CLEAR AND MAINTAINABLE. RR 21, OXYGEN SATURATION 95% NO SIGNS OF DISTRESS OBSERVED WHILE AT THE BEDSIDE. VS STABLE, SYMMETRICAL CHEST RISE AND FALL OBSERVED. WILL CONTINUE TO CLOSELY MONITOR AND FREQUENTLY ROUND.
--- NOTE | 2021-06-02 21:18 | NUR ---
PT RECEIVED ON PRVC 475 +12 f22 W/ ETT 8 SECURED AT 25 VENT PLUGGED INTO RED OUTLET W/ ALARMS ON AND AUDIBLE AMBU AT BEDSIDE WILL CONTINUE TO MONITOR
--- NOTE | 2021-06-02 21:55 | NUR ---
SCHEDULED MEDICATIONS GIVEN ORDERED BY MD, NO SIGNS OF DISTRESS OBSERVED WHILE AT THE BEDSIDE. VS STABLE. WILL CONTINUE TO CLOSELY MONITOR AND FREQUENTLY ROUND.
--- NOTE | 2021-06-02 23:31 | NUR ---
BLOOD GLUCOSE CHECKED, 116, NO COVERAGE GIVEN PER PROTOCOL. NO SIGNS OF DISTRESS OBSERVED WHILE AT THE BEDSIDE. VS STABLE, TOLERATING VENT SETTINGS AND THERAPIES WELL. WILL CONTINUE TO CLOSELY MONITOR AND FREQUENTLY ROUND.
[2021-06-03] VITALS (35 sets, daily range): BP systolic 101–156; BP diastolic 56–91
[2021-06-03] MEDS: PROPOFOL 1000 MG/100 ML PREMIX 100 ML IV PRN ×7 (00:12→20:31)
--- NOTE | 2021-06-03 00:29 | NUR ---
VAP ORAL CARE, REPOSITIONING, ET/ORAL SUCTIONING, SAFETY CHECKS AND HYGIENE PROVIDED. MINIMAL CLEAR/NELSON SECRETIONS SUCTIONED FROM MOUTH/ET TUBE. AIRWAY OPEN, CLEAR AND MAINTAINABLE. RR 18, OXYGEN SATURATION 94% NO SIGNS OF DISTRESS OBSERVED WHILE AT THE BEDSIDE. TOLERATING VENT SETTINGS WELL. VS STABLE, SYMMETRICAL CHEST RISE AND FALL OBSERVED. WILL CONTINUE TO CLOSELY MONITOR AND FREQUENTLY ROUND.
--- NOTE | 2021-06-03 02:02 | NUR ---
PATIENT RESTING IN A POSITION OF COMFORT, INTUBATED AND SEDATED. NO SIGNS OF DISTRESS OBSERVED WHILE AT THE BEDSIDE. HOB 30 DEGREES, AIRWAY OPEN CLEAR AND MAINTAINABLE. RR 22, OXYGEN SATURATION 94%, TOLERATING CURRENT VENT SETTINGS WELL. SYMMETRICAL CHEST RISE AND FALL OBSERVED, SAFETY CHECKS, HYGIENE AND REPOSITIONING PROVIDED. WILL CONTINUE TO CLOSELY MONITOR AND FREQUENTLY ROUND.
[2021-06-03] MEDS ORDERED: MIDAZOLAM MDV 50 MG/10 ML VIAL IV ONE (03:48)
[2021-06-03] MEDS: MIDAZOLAM MDV 100 MG in NACL 0.9% 80 ML IV PRN (03:48)
--- NOTE | 2021-06-03 04:21 | NUR ---
MORNING CARE, VAP ORAL CARE, SUCTIONING, HYGIENE, POSITIONING AND SAFETY CHECKS PROVIDED. MINIMAL CLEAR/NELSON SECRETIONS SUCTIONED FROM MOUTH/ET TUBE, AIRWAY, OPEN, CLEAR AND MAINTAINABLE. PATIENT TOLERATING CURRENT VENT SETTINGS WELL, CONTINUING PRONE POSITIONING PER MD ORDER, RR 19, OXYGEN SATURATION 95%, NO SIGNS OF DISTRESS OBSERVED WHILE AT THE BEDSIDE. SAFETY CHECKS IN PLACE, VS STABLE, WILL CONTINUE TO CLOSELY MONITOR AND FREQUENTLY ROUND.
[2021-06-03] MEDS: BLOOD GLUCOSE MONITORING 1 DEV DEV FS SCH ×4 (06:00→23:27)
--- NOTE | 2021-06-03 06:09 | NUR ---
BLOOD GLUCOSE CHECKED, 92, NO COVERAGE GIVEN PER PROTOCOL. NO SIGNS OF DISTRESS OBSERVED WHILE AT THE BEDSIDE. WILL CONTINUE TO CLOSELY MONITOR AND FREQUENTLY ROUND.
[2021-06-03 06:22] LABS: BASOPHILS % (AUTO) 0.2 % (0.0-2.0); EOSINOPHILS # (AUTO) 0.1 K/uL (0-0.4); EOSINOPHILS % (AUTO) 0.7 % (0.0-4.0); HEMATOCRIT 31.5 % (36-52); HEMOGLOBIN 10.5 g/dL (12.0-18.0); LYMPHOCYTES # (AUTO) 1.4 K/uL (2.0-11.5); LYMPHOCYTES % (AUTO) 14.6 % (20.5-51.1); MEAN CORPUSCULAR HEMOGLOBIN 28 pg (27-31); MEAN CORPUSCULAR HGB CONC 33 g/dL (33-37); MEAN CORPUSCULAR VOLUME 84.3 fL (80-94); MONOCYTES # (AUTO) 1.1 K/uL (0.8-1.0); MONOCYTES % (AUTO) 11.4 % (1.7-9.3); NEUTROPHILS # (AUTO) 7.2 K/uL (1.8-7.7); NEUTROPHILS % (AUTO) 73.1 % (42.2-75.2); PLATELET COUNT (AUTO) 209 K/uL (140-450); RED BLOOD CELL COUNT(AUTO) 3.74 MIL/uL (4.20-6.10); RED CELL DISTRIBUTION WIDTH 14.1 % (11.6-13.7); WHITE BLOOD COUNT (AUTO) 9.8 K/uL (4.8-10.8)
[2021-06-03 06:53] LABS: PHOSPHORUS 3.5 mg/dL (2.5-4.9)
--- NOTE | 2021-06-03 07:20 | NUR ---
REPORT AND CARE ENDORSED TO DAYSHIFT RN, VS STABLE.
--- NOTE | 2021-06-03 07:30 | NUR ---
[facility]. RASS -2, DRY WEIGHT 156 KG. INTUBATED AND SEDATED, ETT TO VENT SETTINGS AC/PRVC FIO2 50%, TV 475, RR 22, AND PEEP 12. RESPIRATIONS EVEN AND UNLABORED WITH NO SOB OR RESPIRATORY DISTRESS. OGT IN PLACE AND INTACT, CONNECTED TO FEEDING. SR ON MONITOR. RIGHT UPPER ARM PICC LINE DOUBLE LUMEN CLEAN, DRY AND INTACT. IV DRIPS FOUND RUNNING AT FENTANYL 2 MCG/KG/HR, PROPOFOL 40 MCG/KG/MIN, VERSED 5 MG/HR, AND NS 0.9% 10 ML/HR. PATIENT HAS A ABDI CATHETER IN PLACE DRAINING VIA GRAVITY. SKIN WARM AND DRY TO TOUCH. SAFETY MEASURES IN PLACE. WILL CONTINUE TO MONITOR
[2021-06-03] MEDS: DEXAMETHASONE 4 MG/ML VIAL IVP SCH (09:00)
[2021-06-03] MEDS: MULTIVITAMIN/MINERALS 1 TAB PO SCH (09:00)
[2021-06-03] MEDS: VITAMIN D 400 IU TAB GT SCH (09:00)
[2021-06-03] MEDS: ASCORBIC ACID 500 MG/5 ML ORASYR GT SCH ×2 (09:00→20:30)
[2021-06-03] MEDS: APIXABAN 2.5 MG TAB PO SCH ×2 (09:00→20:30)
[2021-06-03] MEDS: FAMOTIDINE 20 MG TAB PO SCH ×2 (09:00→20:30)
--- NOTE | 2021-06-03 09:15 | NUR ---
DUE MORNING MEDS GIVEN TOLERATED WELL.
--- NOTE | 2021-06-03 09:20 | NUR ---
WOUND CARE EVALUATION NOTE: SKIN ASSESSMENT DONE WITH THIS 35 Y/P PT. WITH COVID PNEUMONIA, ACUTE HYPOXEMIC RESPIRATORY FAILURE, MORBID OBESITY. PT. INTUBATED, SEDATED WITH OGT FEEDING, ABDI CATHETER. SKIN COLOR PALE, COLD TO TOUCH, EDEMA TO TRUNK OF BODY, ALL EXTREMITIES AND BILATERAL DORSAL FOOT +2. PER PRIMARY RN NO MORE PRONING POSITION. PT. REMAINS LOW ERICK SCALE AT HIGH RISK, AND HI RISK FOR COVID SKIN FAILURE, WILL CONTINUE TO FOLLOW PRESSURE INJURY PREVENTION INTERVENTIONS. POC DISCUSSED WITH PRIMARY RN. INTEGUMENTARY: -LEFT EAR BLANCHABLE REDNESS, SKIN INTACT, AREA OFFLOADING -UPPER LIP ELECTRICAL MACHINE BUILDER RELATED PRESSURE INJURY DRY SCAB 1X1 CM RYAN WOUND SKIN INTACT -ORAL MUCOSA LEFT UPPER LIP 0.5X0.5CM SUPERFICIAL DEPTH, WOUND BED 100% LIGHT YELLOW COLOR, NO ODOR, LIPS ARE SWELLING IT IS ELECTRICAL MACHINE BUILDER RELATED SKIN EROSION/ULCERATION FROM ETT AND OGT. -SCROTAL EDEMA, SKIN THIN AND INTACT -LEFT HALLUX COVID TOE WITH 1X1CM 100% MAROON COLOR, RYAN WOUND SKIN EDEMA RECOMMENDATIONS -APPLY HYDRAGUARD TO EARS, SCROTAL AREAS AND SACRAL COCCYX BID SINAN AND OFFLOADING AREA -ORAL CARE Q12H OFFLOAD/ REPOSITION ETT AND OGT -APPLY SKIN PREP. TO LEFT HALLUX BID AND AMMONIA TECHNICIAN -HEEL RAISERS PROTECTORS TO BILATERAL HEELS -TURN AND REPOSITION PATIENT Q 2H -ASSESS AND MONITOR SKIN CONDITION DURING POSITION CHANGE, -OFFLOAD BILATERAL HEELS BY PLACING PILLOWS UNDER CALVES AT ALL TIMES, UNLESS OTHERWISE CONTRAINDICATED -PRESSURE REDISTRIBUTION BY PLACING PILLOWS AND OFFLOADING SACRALCOCCYX -KEEP SKIN CLEAN AND DRY AT ALL TIMES. PLEASE CONTACT WOUND CARE NURSE FOR ANY QUESTION OR CHANGE OF SKIN CONDITION.
--- NOTE | 2021-06-03 09:30 | NUR ---
ORAL CARE AND ABDI CARE DONE
--- NOTE | 2021-06-03 10:00 | NUR ---
VISITED BY PARENTS
[2021-06-03 10:36] LABS: ANION GAP 10.6 (8-16); CARBON DIOXIDE 28.5 mmol/L (21-32); CREATININE 0.7 mg/dL (0.6-1.3); POTASSIUM 4.1 mmol/L (3.5-5.1)
--- NOTE | 2021-06-03 12:10 | NUR ---
SEEN AND EXAMINED BY DR PARRISH. GAVE UPDATE TO PT'S FATHER
[2021-06-03] MEDS: HYDRAGUARD CREAM TP SCH (13:31)
--- NOTE | 2021-06-03 15:47 | NUR ---
RESTING IN BED FLACC 0, NO APPARENT DISTRESS
--- NOTE | 2021-06-03 17:35 | NUR ---
RYAN CARE, ABDI CARE AND ORAL CARE DONE. TURNED AND REPOSITIONED PT
[2021-06-03] MEDS: LEVOFLOXACIN 750 MG/D5W PREMIX 150 ML IV SCH (17:40)
[2021-06-03] MEDS: fentaNYL citrate - 50mL vial 2.5 MG in NACL 0.9% 200 ML IV PRN (18:00)
--- NOTE | 2021-06-03 19:25 | NUR ---
RECIEVED BEDSIDE ENDORSEMENT FROM DAY SHIFT RN, PT LYING IN BED, RASS -2, SR ON MONITOR, ETT TO VENT ACPRVC FIO2 40% TV 450 RATE 22 PEEP 12, AFEBRILE, SKIN WARM DRY AND NON INTACT/SEE WOUND ASSESSMENT, OGT TO FEEDING INFUSING VITAL, FC IN PLACE DRAINING VIA GRAVITY, CYNTHIA PICC INFUSING VERSED @ 5 MG/JR, PROPOFOL @ 30 MCG/KG/MIN, FENTANYL @ 1.5 MCG/KG/HR AND NS TKO, DW 156 KG, PT IN CRITICAL CONDITION, NO SIGNS OF ACUTE DISTRESS AT THIS MOMENT, SAFETY MEASURES IN PLACE, WILL CONTINUE WITH CURRENT POC
[2021-06-03] MEDS ORDERED: CRUSHER, PILL MC ONE (20:34)
--- NOTE | 2021-06-03 21:06 | NUR ---
ADMINISTERED 2100H MEDICATIONS PER MD ORDERS, VAP ORAL CARE GIVEN, REPOSITIONED PT, NO SIGNS OF ACUTE DISTRESS
--- NOTE | 2021-06-03 23:28 | NUR ---
VAP ORAL CARE GIVEN, BLOOD GLUCOSE 95, NO NEED FOR INSULIN COVERAGE, REPOSITIONED PT, NO SIGNS OF ACUTE DISTRESS
[2021-06-04] VITALS (28 sets, daily range): BP systolic 96–155; BP diastolic 49–96
[2021-06-04] MEDS: HYDRAGUARD CREAM TP SCH ×2 (00:15→13:56)
[2021-06-04] MEDS: PROPOFOL 1000 MG/100 ML PREMIX 100 ML IV PRN ×7 (00:16→23:14)
[2021-06-04] MEDS: MIDAZOLAM MDV 100 MG in NACL 0.9% 80 ML IV PRN (02:00)
--- NOTE | 2021-06-04 02:19 | NUR ---
VAP ORAL CARE GIVEN, REPOSITIONED PT, NO SIGNS OF ACUTE DISTRESS
--- NOTE | 2021-06-04 04:10 | NUR ---
MORNING CARE PROVIDED, VAP ORAL CARE GIVEN, REPOSITIONED PT, NO SIGNS OF ACUTE DISTRESS
[2021-06-04] MEDS: BLOOD GLUCOSE MONITORING 1 DEV DEV FS SCH ×3 (05:15→18:32)
--- NOTE | 2021-06-04 05:15 | NUR ---
BLOOD GLUCOSE 88, NO INSULIN COVERAGE NEEDED, VAP ORAL CARE GIVEN, REPOSITIONED PT, NO SIGNS OF ACUTE DISTRESS
[2021-06-04 06:29] LABS: BASOPHILS # (AUTO) 0.1 K/uL (0.00-0.22); BASOPHILS % (AUTO) 0.7 % (0.0-2.0); EOSINOPHILS % (AUTO) 0.2 % (0.0-4.0); HEMATOCRIT 33.7 % (36-52); HEMOGLOBIN 11.6 g/dL (12.0-18.0); LYMPHOCYTES # (AUTO) 1.5 K/uL (2.0-11.5); LYMPHOCYTES % (AUTO) 15.8 % (20.5-51.1); MEAN CORPUSCULAR HEMOGLOBIN 29 pg (27-31); MEAN CORPUSCULAR HGB CONC 34 g/dL (33-37); MEAN CORPUSCULAR VOLUME 83.6 fL (80-94); MONOCYTES % (AUTO) 10.5 % (1.7-9.3); NEUTROPHILS % (AUTO) 72.8 % (42.2-75.2); PLATELET COUNT (AUTO) 220 K/uL (140-450); RED BLOOD CELL COUNT(AUTO) 4.04 MIL/uL (4.20-6.10); RED CELL DISTRIBUTION WIDTH 14.1 % (11.6-13.7); WHITE BLOOD COUNT (AUTO) 9.7 K/uL (4.8-10.8)
[2021-06-04 06:47] LABS: ANION GAP 9.4 (8-16); CARBON DIOXIDE 29.6 mmol/L (21-32); CREATININE 0.7 mg/dL (0.6-1.3)
[2021-06-04] MEDS: fentaNYL citrate - 50mL vial 2.5 MG in NACL 0.9% 200 ML IV PRN ×2 (06:47→18:35)
--- NOTE | 2021-06-04 07:27 | NUR ---
ENDORSED TO DAY SHIFT RN FOR CONTINUITY OF CARE
--- NOTE | 2021-06-04 07:30 | NUR ---
[facility] RASS -2, DRY WEIGHT 156 KG. INTUBATED AND SEDATED, ETT TO VENT SETTINGS AC/PRVC FIO2 40%, TV 475, RR 22, AND PEEP 12. RESPIRATIONS EVEN AND UNLABORED WITH NO SOB OR RESPIRATORY DISTRESS. OGT IN PLACE AND INTACT, tube feeding held due to high residuals. SR ON MONITOR. RIGHT UPPER ARM PICC LINE DOUBLE LUMEN CLEAN, DRY AND INTACT. IV DRIPS FOUND RUNNING AT FENTANYL 1.5 MCG/KG/HR, PROPOFOL 30 MCG/KG/MIN, VERSED 5 MG/HR, AND NS 0.9% 10 ML/HR. PATIENT HAS A ABDI CATHETER IN PLACE DRAINING VIA GRAVITY. SKIN WARM AND DRY TO TOUCH. SAFETY MEASURES IN PLACE. WILL CONTINUE TO MONITOR
--- NOTE | 2021-06-04 07:41 | NUR ---
RECEIVED INTUBATED PT WITH A 8.0 ETT SECURED @24 TEETH/GUM ON VENT. SETTINGS PRVC 22, VT475, PEEP 12 AND FIO2 40%.PT SEDATED AT THIS TIME NOT IN ANY DISTRESS. VENT IS PLUGGED INTO A RED OUTLET WITH ALARMS ON AND FUNCTIONING. WILL CONTINUE TO MONITOR.
--- NOTE | 2021-06-04 08:45 | NUR ---
DUE MORNING MEDS GIVEN, RESTARTED TUBE FEEDING AT 30CC/HR
--- NOTE | 2021-06-04 09:00 | NUR ---
ORAL CARE AND ABDI CARE DONE
[2021-06-04] MEDS: FAMOTIDINE 20 MG TAB PO SCH ×2 (09:46→23:08)
[2021-06-04] MEDS: VITAMIN D 400 IU TAB GT SCH (09:46)
[2021-06-04] MEDS: MULTIVITAMIN/MINERALS 1 TAB PO SCH (09:46)
[2021-06-04] MEDS: ASCORBIC ACID 500 MG/5 ML ORASYR GT SCH ×2 (09:46→23:07)
[2021-06-04] MEDS: APIXABAN 2.5 MG TAB PO SCH ×2 (09:46→21:30)
[2021-06-04] MEDS: DEXAMETHASONE 4 MG/ML VIAL IVP SCH (09:46)
--- NOTE | 2021-06-04 13:15 | NUR ---
RT NOTED CUFF LEAK, MD NOTIFIED , ORDERED STAT CXR FOR ETT PLACEMENT
[2021-06-04] MEDS ORDERED: ETOMIDATE 20 MG/10 ML VIAL IVP ONE (13:33)
[2021-06-04] MEDS ORDERED: ROCURONIUM 50 MG/5 ML VIAL IV ONE (13:33)
--- NOTE | 2021-06-04 13:55 | NUR ---
REINTUBATED BY ER MD SAID FOR CUFF LEAK WITH NO INCIDENT. RT [place] AND RT BETTYE ATTENDED. NO SOB OR DISTRESS NOTED. BACK ON VENTILATOR WITH CHARTED SETTINGS. CHEST XRAY ORDERED. WILL FOLLOW.
--- NOTE | 2021-06-04 13:55 | NUR ---
1354: Etomidate 20mg and Rocuronium 100mg given as ordered 1355: pt reintubate ETT size 8, anchored 26cm at the lip
--- NOTE | 2021-06-04 14:30 | NUR ---
ETT AND OGT IN GOOD POSITION PER RADIOLOGY
--- NOTE | 2021-06-04 16:06 | NUR ---
06/04/21 RD FOLLOW UP COMPLETED PLEASE REFER TO NUTRITION ASSESSMENT UNDER CARE ACTIVITY FOR ESTIMATED NUTRITIONAL NEEDS. 1. RECOMMEND VITAL AF 1.2 @ 50 ML/HR X 24 HR -THIS WILL PROVIDE 1440 KCAL AND 90 GM OF PROTEIN. -PROPOFOL WILL ALSO PROVIDE ADDITIONAL CALORIES/DAY 2. CONTINUE FREE WATER FLUSH OF 200 ML Q8H 3. CONTINUE VITAMIN C, VITAMIN D, AND MULTIVITAMIN ONCE DAILY 4. RD TO FOLLOW-UP 2-3 DAYS, HIGH RISK ABBE DAVIS RD
--- NOTE | 2021-06-04 17:15 | NUR ---
RYAN CARE, ABDI CARE AND ORAL CARE DONE. TURNED AND REPOSITIONED PT
[2021-06-04] MEDS: LEVOFLOXACIN 750 MG/D5W PREMIX 150 ML IV SCH (18:03)
--- NOTE | 2021-06-04 18:30 | NUR ---
RESTING IN BED, FLACC 0, NO RESPIRATORY DISTRESS NOTED
--- NOTE | 2021-06-04 21:00 | NUR ---
PATIENT WAS ACCEPTED AND ASSESS DONE PATIENT IS ON SEDATION WILL OPEN EYES AND NOTICE THE PERSON ABLE TO MOVE SOMF HAND WILL NOT TRIED TO REMOVE TUBE, ON TUBE FEEDING TOLERATE RATE STABLE URINE OUT PUT IS GOOD , LARGE AMOUNT NO BM WAS NOTICE , STABLE
[2021-06-05] VITALS (28 sets, daily range): BP systolic 94–156; BP diastolic 53–104
[2021-06-05] MEDS: HYDRAGUARD CREAM TP SCH ×2 (01:00→12:55)
[2021-06-05] MEDS: MIDAZOLAM MDV 100 MG in NACL 0.9% 80 ML IV PRN (02:53)
[2021-06-05] MEDS: PROPOFOL 1000 MG/100 ML PREMIX 100 ML IV PRN ×4 (05:20→19:38)
--- NOTE | 2021-06-05 06:00 | NUR ---
NOTICE PATIENT WAS SHOWING SIGNS OF PAIN ASK WHERE THE PAIN WAS, NOTICE EYES WATERY ALSO SOME REDINESS OF THE LEFT GAVE THE EYES CLEANING MAY HAVE BEEN SOME DUSK O THE RT WAS IN BEFORE, CHANGE THE STRAPE ON THE DAVIS WOODALL CONTINUED WITH PLAN OF CARE
[2021-06-05 06:14] LABS: BASOPHILS % (AUTO) 0.4 % (0.0-2.0); EOSINOPHILS # (AUTO) 0.1 K/uL (0-0.4); EOSINOPHILS % (AUTO) 0.6 % (0.0-4.0); HEMATOCRIT 37.5 % (36-52); HEMOGLOBIN 12.4 g/dL (12.0-18.0); LYMPHOCYTES # (AUTO) 1.9 K/uL (2.0-11.5); LYMPHOCYTES % (AUTO) 20.6 % (20.5-51.1); MEAN CORPUSCULAR HEMOGLOBIN 28 pg (27-31); MEAN CORPUSCULAR HGB CONC 33 g/dL (33-37); MEAN CORPUSCULAR VOLUME 84.6 fL (80-94); MONOCYTES # (AUTO) 0.9 K/uL (0.8-1.0); MONOCYTES % (AUTO) 9.9 % (1.7-9.3); NEUTROPHILS # (AUTO) 6.2 K/uL (1.8-7.7); NEUTROPHILS % (AUTO) 68.5 % (42.2-75.2); PLATELET COUNT (AUTO) 246 K/uL (140-450); RED BLOOD CELL COUNT(AUTO) 4.43 MIL/uL (4.20-6.10); RED CELL DISTRIBUTION WIDTH 14.2 % (11.6-13.7); WHITE BLOOD COUNT (AUTO) 9.1 K/uL (4.8-10.8)
[2021-06-05 06:45] LABS: ANION GAP 10.8 (8-16); CREATININE 0.8 mg/dL (0.6-1.3); POTASSIUM 3.8 mmol/L (3.5-5.1)
[2021-06-05] MEDS: BLOOD GLUCOSE MONITORING 1 DEV DEV FS SCH ×4 (07:00→17:26)
--- NOTE | 2021-06-05 07:30 | NUR ---
REPORT RECEIVED FROM PM SHIFT RN FOR CONTINUITY OF CARE. SEDATED, RASS -2. OPENS EYES. SR ON MONITOR. ETT TO VENT. AC/VC MODE FIO2 45%, TV 475M RATE 22, PEEP 12. IV SITE, RT UPPER ARM PICC LINE INFUSING VERSED 5MG/HR, PROPOFOL 20 MCG/KG/MIN, FENTANYL 1.25 MCG/HR. OGT TO FEEDING.0 RESIDUALS NOTED. ABDI CATHETER IN PLACE. SKIN WARM AND DRY, NON INTACT,SEE WOUND ASSESSMENT. DRY WEIGHT 156 KG. HOB 30 DEGREES. BED LOCKED IN LOWEST POSITION. SAFETY PRECAUTIONS IN PLACE. WILL CONTINUE TO MONITOR.
[2021-06-05] MEDS: VITAMIN D 400 IU TAB GT SCH (08:09)
[2021-06-05] MEDS: ASCORBIC ACID 500 MG/5 ML ORASYR GT SCH ×2 (08:10→20:52)
[2021-06-05] MEDS: DEXAMETHASONE 4 MG/ML VIAL IVP SCH (08:10)
[2021-06-05] MEDS: FAMOTIDINE 20 MG TAB PO SCH ×2 (08:11→20:53)
[2021-06-05] MEDS: MULTIVITAMIN/MINERALS 1 TAB PO SCH (08:11)
[2021-06-05] MEDS: APIXABAN 2.5 MG TAB PO SCH ×2 (08:12→20:53)
--- NOTE | 2021-06-05 09:00 | NUR ---
PT SEDATED, RASS -2. OPENS EYES. RESPIRATIONS EVEN AND UNLABORED. CHEST RISE IS SYMMETRICAL. WILL CONTINUE TO MONITOR.
--- NOTE | 2021-06-05 10:33 | NUR ---
PT'S FATHER TO VISIT PT. OUTSIDE WINDOW. UPDATED ON PT STATUS. ALL QUESTIONS AND CONCERNS ANSWERED AT THIS TIME.
[2021-06-05] MEDS: fentaNYL citrate - 50mL vial 2.5 MG in NACL 0.9% 200 ML IV PRN (10:48)
--- NOTE | 2021-06-05 12:00 | NUR ---
PT TAKEN TO CT SCAN VIA JONO. ACCOMPANIED BY DOUGLAS AND MARGARITO. Addendum: 06/05/21 at 1306 by Isaias Goldsmith RN DOCUMENTED ON WRONG PT. PLS DISREGARD.
--- NOTE | 2021-06-05 12:10 | NUR ---
PT SEDATED, RASS -2. OPENS EYES. RESPIRATIONS EVEN AND UNLABORED. CHEST RISE IS SYMMETRICAL. WILL CONTINUE TO MONITOR.
--- NOTE | 2021-06-05 14:48 | NUR ---
PT SEDATED, RASS -2. OPENS EYES. RESPIRATIONS EVEN AND UNLABORED. CHEST RISE IS SYMMETRICAL. WILL CONTINUE TO MONITOR.
[2021-06-05] MEDS: LEVOFLOXACIN 750 MG/D5W PREMIX 150 ML IV SCH (16:42)
--- NOTE | 2021-06-05 16:43 | NUR ---
PT REMAINS ON DOCUMENTED VENT SETTINGS. ETT IS SECURE WITH A PATENT AIRWAY. VENT ALARMS ON AND FUNCTIONING.
--- NOTE | 2021-06-05 18:25 | NUR ---
PT SEDATED, RASS -2. RESPIRATIONS EVEN AND UNLABORED. CHEST RISE IS SYMMETRICAL. WILL CONTINUE TO MONITOR.
--- NOTE | 2021-06-05 19:25 | NUR ---
REPORT GIVEN TO PM SHIFT RN FOR CONTINUITY OF CARE
--- NOTE | 2021-06-05 20:00 | NUR ---
RECEIVED PATIENT REPORT. PT SEDATED, RASS -2. OPENS EYES WITH STIMULI. SR ON MONITOR. ETT TO VENT. AC/VC MODE FIO2 45%, TV 475M RATE 22, PEEP 12. IV SITE, RT UPPER ARM PICC LINE INFUSING VERSED 5MG/HR, PROPOFOL 20 MCG/KG/MIN, FENTANYL 1.25 MCG/HR. OGT TO FEEDING. 10CC RESIDUALS. ABDI CATHETER IN PLACE, DRAINING CLEAR YELLOW URINE. SKIN WARM AND DRY, BLE EDEMA NOTED. HOB 30 DEGREES. BED LOCKED IN LOWEST POSITION. SAFETY PRECAUTIONS IN PLACE. WILL CONTINUE TO MONITOR.
[2021-06-06] VITALS (26 sets, daily range): BP systolic 80–137; BP diastolic 40–96
[2021-06-06] MEDS: BLOOD GLUCOSE MONITORING 1 DEV DEV FS SCH ×4 (00:06→18:00)
--- NOTE | 2021-06-06 00:30 | NUR ---
ORAL CARE DONE. PT TURNED AND REPOSITIONED FOR COMFORT
[2021-06-06] MEDS: HYDRAGUARD CREAM TP SCH ×2 (01:16→13:54)
[2021-06-06] MEDS: PROPOFOL 1000 MG/100 ML PREMIX 100 ML IV PRN ×5 (01:23→23:39)
[2021-06-06] MEDS: MIDAZOLAM MDV 100 MG in NACL 0.9% 80 ML IV PRN ×2 (02:21→15:40)
[2021-06-06] MEDS: fentaNYL citrate - 50mL vial 2.5 MG in NACL 0.9% 200 ML IV PRN ×2 (03:30→13:47)
--- NOTE | 2021-06-06 04:00 | NUR ---
ORAL CARE GIVEN. PT TURNED AND REPOSITIONED FOR COMFORT
[2021-06-06 06:08] LABS: ANION GAP 10.5 (8-16); CARBON DIOXIDE 30.1 mmol/L (21-32); CREATININE 0.8 mg/dL (0.6-1.3); POTASSIUM 3.6 mmol/L (3.5-5.1)
[2021-06-06 06:18] LABS: BASOPHILS % (AUTO) 0.4 % (0.0-2.0); EOSINOPHILS # (AUTO) 0.1 K/uL (0-0.4); EOSINOPHILS % (AUTO) 0.6 % (0.0-4.0); HEMATOCRIT 36.1 % (36-52); HEMOGLOBIN 12.2 g/dL (12.0-18.0); LYMPHOCYTES # (AUTO) 2.4 K/uL (2.0-11.5); MEAN CORPUSCULAR HEMOGLOBIN 28 pg (27-31); MEAN CORPUSCULAR HGB CONC 34 g/dL (33-37); MEAN CORPUSCULAR VOLUME 83.5 fL (80-94); MONOCYTES # (AUTO) 1.1 K/uL (0.8-1.0); MONOCYTES % (AUTO) 10.3 % (1.7-9.3); NEUTROPHILS # (AUTO) 7.2 K/uL (1.8-7.7); NEUTROPHILS % (AUTO) 66.7 % (42.2-75.2); PLATELET COUNT (AUTO) 267 K/uL (140-450); RED BLOOD CELL COUNT(AUTO) 4.32 MIL/uL (4.20-6.10); RED CELL DISTRIBUTION WIDTH 14.2 % (11.6-13.7); WHITE BLOOD COUNT (AUTO) 10.8 K/uL (4.8-10.8)
--- NOTE | 2021-06-06 07:24 | NUR ---
PT ENDORSED TO AM NURSE FOR CONTINUITY OF CARE
[2021-06-06] MEDS: VITAMIN D 400 IU TAB GT SCH (09:01)
[2021-06-06] MEDS: DEXAMETHASONE 4 MG/ML VIAL IVP SCH (09:02)
[2021-06-06] MEDS: ASCORBIC ACID 500 MG/5 ML ORASYR GT SCH ×2 (09:02→21:00)
[2021-06-06] MEDS: APIXABAN 2.5 MG TAB PO SCH ×2 (09:03→21:00)
[2021-06-06] MEDS: MULTIVITAMIN/MINERALS 1 TAB PO SCH (09:03)
[2021-06-06] MEDS: FAMOTIDINE 20 MG TAB PO SCH ×2 (09:04→21:00)
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
[2021-06-06] MEDS: LEVOFLOXACIN 750 MG/D5W PREMIX 150 ML IV SCH (17:37)
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
--- NOTE | 2021-06-06 19:44 | NUR ---
LEAVE MESSAGE TO PICCLINE REGARDING PICCLINE ORDER, WILL ENDORSE
[2021-06-06] MEDS: HALOPERIDOL IM 5 MG/ML VIAL IVP PRN (21:03)
[2021-06-07] VITALS (28 sets, daily range): BP systolic 88–118; BP diastolic 37–78
[2021-06-07] MEDS: HYDRAGUARD CREAM TP SCH ×2 (01:00→13:41)
[2021-06-07] MEDS: PROPOFOL 1000 MG/100 ML PREMIX 100 ML IV PRN ×10 (01:45→20:39)
--- NOTE | 2021-06-07 02:57 | NUR ---
PATIENT AWKE IV OUT OF LEFT FOOT PATIENT VERY AGITATED KICKING FEET AND NURSES GRETTA TRYING TO PUT IN A IV BACK IN FOOT. PUT 24 IN LEFT FOOT PATENT STARTED BACK PROPOFOL AT 40 MCG E.R. IN TO PUT IN CENTRAL LINE IN RIGHT FEMEROL TRIPLE LUMEN STARTED BACK VERSED AND FENTANYL DRIPS.PATIENT HAS ET-TUBE AC/PRVC RATE 22, TV 475, FI02 40% PEEP 10 SAT 93%. PATIENT SINUS ON MONITOR. AND SOMETIMES SINUS TACH. TEMP 99.1 LUNGS DIMINISH TO LISTEN PATIENT BLOOD SUGAR 0000 91 NO INSULIN NEEDED. PATIENT NOW -3 RASS.
[2021-06-07 04:38] LABS: BASOPHILS % (AUTO) 0.5 % (0.0-2.0); EOSINOPHILS # (AUTO) 0.1 K/uL (0-0.4); EOSINOPHILS % (AUTO) 0.8 % (0.0-4.0); HEMATOCRIT 33.6 % (36-52); HEMOGLOBIN 11.2 g/dL (12.0-18.0); LYMPHOCYTES # (AUTO) 1.6 K/uL (2.0-11.5); LYMPHOCYTES % (AUTO) 20.8 % (20.5-51.1); MEAN CORPUSCULAR HEMOGLOBIN 28 pg (27-31); MEAN CORPUSCULAR HGB CONC 33 g/dL (33-37); MEAN CORPUSCULAR VOLUME 85.2 fL (80-94); MONOCYTES # (AUTO) 0.9 K/uL (0.8-1.0); MONOCYTES % (AUTO) 11.8 % (1.7-9.3); NEUTROPHILS # (AUTO) 5.1 K/uL (1.8-7.7); NEUTROPHILS % (AUTO) 66.1 % (42.2-75.2); PLATELET COUNT (AUTO) 243 K/uL (140-450); RED BLOOD CELL COUNT(AUTO) 3.94 MIL/uL (4.20-6.10); RED CELL DISTRIBUTION WIDTH 14.2 % (11.6-13.7); WHITE BLOOD COUNT (AUTO) 7.8 K/uL (4.8-10.8)
[2021-06-07 04:43] LABS: ANION GAP 8.5 (8-16); CARBON DIOXIDE 31.2 mmol/L (21-32); CREATININE 0.9 mg/dL (0.6-1.3); POTASSIUM 3.7 mmol/L (3.5-5.1)
[2021-06-07] MEDS: BLOOD GLUCOSE MONITORING 1 DEV DEV FS SCH ×4 (06:00→18:12)
[2021-06-07] MEDS ORDERED: fentaNYL citrate 1 MG in NACL 0.9% 80 ML IV PRN (07:35)
[2021-06-07] MEDS ORDERED: MIDAZOLAM MDV 50 MG in NACL 0.9% 40 ML IV PRN (07:35)
[2021-06-07] MEDS: ASCORBIC ACID 500 MG/5 ML ORASYR GT SCH ×2 (09:00→21:00)
[2021-06-07] MEDS: FAMOTIDINE 20 MG TAB PO SCH ×2 (09:00→21:00)
[2021-06-07] MEDS: DEXAMETHASONE 4 MG/ML VIAL IVP SCH (09:01)
[2021-06-07] MEDS: APIXABAN 2.5 MG TAB PO SCH ×2 (09:02→21:00)
[2021-06-07] MEDS: MULTIVITAMIN/MINERALS 1 TAB PO SCH (09:03)
[2021-06-07] MEDS: VITAMIN D 400 IU TAB GT SCH (09:03)
[2021-06-07] MEDS: fentaNYL citrate - 50mL vial 2.5 MG in NACL 0.9% 200 ML IV PRN ×2 (09:30→21:06)
--- NOTE | 2021-06-07 15:29 | NUR ---
06/07/21 RD FOLLOW UP COMPLETED PLEASE REFER TO NUTRITION ASSESSMENT UNDER CARE ACTIVITY FOR ESTIMATED NUTRITIONAL NEEDS. 1. RECOMMEND VITAL AF 1.2 @ 35 ML/HR X 24 HR WITH PROSOURCE BID -THIS WILL PROVIDE 1128 KCAL AND 93 GM OF PROTEIN. -PROPOFOL WILL ALSO PROVIDE ADDITIONAL CALORIES/DAY 2. RECOMMEND FREE WATER FLUSH OF 175 ML Q4H 3. CONTINUE VITAMIN C, VITAMIN D, AND MULTIVITAMIN ONCE DAILY 4. RD TO FOLLOW-UP 2-3 DAYS, HIGH RISK ABBE DAVIS RD
--- NOTE | 2021-06-07 17:53 | NUR ---
DR MIRAMONTES AT BEDSIDE FOR EVAL. DR MIRAMONTES UPDATING FAMILY AT THIS TIME
--- NOTE | 2021-06-07 21:00 | NUR ---
PATIENT WAS ACCEPTED AND ASSESS DONE , PATIENT IS VERY SEDATED HAS MAX ON DIPERVAN AND FENTANYL DRIP PATIENT IS FLACCID NO RESPOND TO PAIN ALSO EFFECTING THE BLOOD PRESSURE NOTICE 88/56-90/58. HR 66-70 STABLE IN TWO POINT WRIEST RESTRAINT , WILL TRIED TO REMOVED THE EVENT STABLE WILL WEAN THE DIPRIVAN DRIP DOWN SLOWLY , STABLE PARENT TO VISITED STABLE MAY NEED TO INFORME THE PATIENT WHEN PARENT COME TO VISITED STABLE
--- NOTE | 2021-06-07 22:30 | NUR ---
DIPRIVAN DRIP WEAN DOWN TO 40 MCG.KG/JUNA STABLE BP 94/58 CONTINUED WITH PLAN OF CARE ABLE TO TOLERATE THE WATER FLUSHED NO BM STABLE
[2021-06-08] VITALS (31 sets, daily range): BP systolic 90–140; BP diastolic 41–93
[2021-06-08] MEDS: HYDRAGUARD CREAM TP SCH ×2 (01:00→12:09)
--- NOTE | 2021-06-08 02:30 | NUR ---
DIPRIVAN DIPE WEAN SOFIA TO 30MCG KG.MIN AND STABLE
[2021-06-08] MEDS: PROPOFOL 1000 MG/100 ML PREMIX 100 ML IV PRN ×4 (04:52→21:20)
--- NOTE | 2021-06-08 05:30 | NUR ---
PATIENT MORE AWAKE, REMAIN IN WRIST RESTRAINT WILL TRID TO PULL TUBING POSSIBLE MAY NEED TO TRAIL ON THE WENT STABLE WILL CONTINUED WITH PLAN OF CARE STABLE
[2021-06-08 06:09] LABS: BASOPHILS % (AUTO) 0.6 % (0.0-2.0); EOSINOPHILS # (AUTO) 0.1 K/uL (0-0.4); EOSINOPHILS % (AUTO) 2.1 % (0.0-4.0); HEMATOCRIT 29.7 % (36-52); LYMPHOCYTES # (AUTO) 1.7 K/uL (2.0-11.5); LYMPHOCYTES % (AUTO) 24.8 % (20.5-51.1); MEAN CORPUSCULAR HEMOGLOBIN 28 pg (27-31); MEAN CORPUSCULAR HGB CONC 34 g/dL (33-37); MEAN CORPUSCULAR VOLUME 84.3 fL (80-94); MONOCYTES # (AUTO) 0.7 K/uL (0.8-1.0); NEUTROPHILS # (AUTO) 4.2 K/uL (1.8-7.7); NEUTROPHILS % (AUTO) 62.5 % (42.2-75.2); PLATELET COUNT (AUTO) 198 K/uL (140-450); RED BLOOD CELL COUNT(AUTO) 3.53 MIL/uL (4.20-6.10); RED CELL DISTRIBUTION WIDTH 14.5 % (11.6-13.7); WHITE BLOOD COUNT (AUTO) 6.7 K/uL (4.8-10.8)
[2021-06-08] MEDS: BLOOD GLUCOSE MONITORING 1 DEV DEV FS SCH ×5 (07:00→23:11)
[2021-06-08] MEDS: fentaNYL citrate - 50mL vial 2.5 MG in NACL 0.9% 200 ML IV PRN ×2 (07:03→19:13)
--- NOTE | 2021-06-08 07:10 | NUR ---
REPORT RECEIVED FROM PM SHIFT RN FOR CONTINUITY OF CARE. SEDATED, RASS -2. OPENS EYES. SR ON MONITOR. ETT TO VENT. AC/VC MODE FIO2 50%, TV 475M RATE 22, PEEP 10. IV SITE, RT UPPER ARM PICC LINE INFUSING VERSED , PROPOFOL 35 MCG/KG/MIN, FENTANYL 2 MCG/HR. OGT TO FEEDING. 50 RESIDUALS NOTED. ABDI CATHETER IN PLACE. SKIN WARM AND DRY, NON INTACT,SEE WOUND ASSESSMENT. DRY WEIGHT 156 KG. HOB 30 DEGREES. BED LOCKED IN LOWEST POSITION. SAFETY PRECAUTIONS IN PLACE. WILL CONTINUE TO MONITOR.
--- NOTE | 2021-06-08 07:16 | NUR ---
RECEIVED INTUBATED PT WITH A 8.0 ETT SECURED @25 TEETH/GUM ON VENT. SETTINGS A/C PRVC 22, VT 475, PEEP 10 AND FIO2 50%. PT IS AWAKE REACHING FOR ETT BUT HAS RESTRAINTS ON, NOTIFIED NURSE OF PT STATUS. PT NOT IN ANY DISTRESS. PT SUCTIONED OBTAINED SMALL AMOUNT OF THICK YELLOW SECRETIONS, AIRWAY IS PATENT AND SECURE. VENT IS PLUGGED INTO A RED OUTLET WITH ALARMS ON AND FUNCTIONING. WILL CONTINUE TO MONITOR.
[2021-06-08 07:19] LABS: ANION GAP 7.3 (8-16); CARBON DIOXIDE 30.1 mmol/L (21-32); CREATININE 0.9 mg/dL (0.6-1.3); POTASSIUM 3.4 mmol/L (3.5-5.1)
[2021-06-08] MEDS: FAMOTIDINE 20 MG TAB PO SCH ×2 (08:55→20:55)
[2021-06-08] MEDS: DEXAMETHASONE 4 MG/ML VIAL IVP SCH (08:55)
[2021-06-08] MEDS: MULTIVITAMIN/MINERALS 1 TAB PO SCH (08:55)
[2021-06-08] MEDS: VITAMIN D 400 IU TAB GT SCH (08:55)
--- NOTE | 2021-06-08 08:55 | NUR ---
CHECKED RESIDUAL, 50 ML. ADMINISTERED SCHEDULED AM MEDICATION. FLUSHED AFTER. ORAL CARE, HYGIENE CARE, ABDI CARE, AND CHG BATH PROVIDED.
[2021-06-08] MEDS: APIXABAN 2.5 MG TAB PO SCH ×2 (08:56→20:55)
[2021-06-08] MEDS: ASCORBIC ACID 500 MG/5 ML ORASYR GT SCH ×2 (08:57→20:55)
[2021-06-08] MEDS: MIDAZOLAM MDV 100 MG in NACL 0.9% 80 ML IV PRN ×2 (10:42→23:14)
--- NOTE | 2021-06-08 10:53 | NUR ---
FIO2 TITRATED TO 45%. PT NOT IN ANY DISTRESS AT THIS TIME. WILL CONTINUE TO MONITOR.
--- NOTE | 2021-06-08 12:00 | NUR ---
VILMA ROUNDING. UPDATED ON PATIENT STATUS AND CONDITION. WILL CONTINUE TO MONITOR.
--- NOTE | 2021-06-08 14:20 | NUR ---
QADEER ROUNDING. UPDATED ON PATIENT STATUS AND CONDITION. WILL CONTINUE TO MONITOR.
--- NOTE | 2021-06-08 17:54 | NUR ---
PEEP TITRATED TO 8cmH2O, NURSE NOTIFIED. PT NOT IN ANY DISTRESS AT THIS TIME. ETT IS SECURE WITH A PATENT AIRWAY. VENT ALARMS ON AND FUNCTIONING.
--- NOTE | 2021-06-08 19:28 | NUR ---
ENDORSED TO RODENT EXTERMINATOR RN FOR CONTINUITY OF CARE.
--- NOTE | 2021-06-08 19:28 | NUR ---
RECEIVED PATIENT FROM AM SHIFT NURSE FOR CONTINUITY OF CARE. RASS -3. ETT TO VENT. RESPIRATIONS EVEN, UNLABORED. NO S/S RESPIRATORY DISTRESS. O2SAT 97%. S1/S2 AUSCULTATED. FLACC 0. SKIN WARM, DRY. RIGHT FEMORAL ACCESS NOTED, DRESSING CLEAN/DRY AND INTACT, INFUSING PROPOFOL, VERSED, AND FENTANYL. ABDOMEN SOFT, NONTENDER, NONDISTENDED. BOWEL SOUNDS ACTIVE x4 QUADRANTS. OGT NOTED. CONTINUES ON ENTERAL FEEDING, TOLERATING WELL. HOB UP 30 DEGREES. ABDI CATHETER PATENT WITH YELLOW URINE DRAINING TO GRAVITY. PLAN OF CARE DISCUSSED. FAMILY OUTSIDE DOOR. CLOSE MONITORING BY ALL STAFF. SAFETY PRECAUTIONS IN PLACE. ISOLATION PRECAUTIONS OBSERVED BY ALL STAFF.
--- NOTE | 2021-06-08 20:20 | NUR ---
BSWR IN PLACE WITH ADEQUATE CIRCULATION TO BOTH EXTREMITIES. PATIENT CONTINUES TO ATTEMPT TO PULL AT TUBING AND ETT TUBE. FREQUENT REORIENTATION PROVIDED. NO INJURY TO PATIENT.
--- NOTE | 2021-06-08 21:20 | NUR ---
DUE MEDS GIVEN. PATIENT TURNED AND REPOSITIONED FOR COMFORT. NO S/S RESPIRATORY DISTRESS. FLACC 0. PATIENT IS CLEAN/DRY.
--- NOTE | 2021-06-08 23:38 | NUR ---
PATIENT CONTINUES TO PULL AT RESTRAINTS. EDUCATED PATIENT REGARDING SAFETY AND OXYGEN THERAPY. PATIENT NEEDS REINFORCEMENT.
[2021-06-09] VITALS (31 sets, daily range): BP systolic 94–152; BP diastolic 43–104
[2021-06-09] MEDS: PROPOFOL 1000 MG/100 ML PREMIX 100 ML IV PRN ×5 (00:15→18:17)
[2021-06-09] MEDS: HYDRAGUARD CREAM TP SCH ×2 (00:22→13:00)
--- NOTE | 2021-06-09 01:24 | NUR ---
VAP ORAL CARE RENDERED.
--- NOTE | 2021-06-09 03:00 | NUR ---
NO S/S RESPIRATORY DISTRESS. FLACC 0. PATIENT IS CLEAN/DRY.
[2021-06-09] MEDS: fentaNYL citrate - 50mL vial 2.5 MG in NACL 0.9% 200 ML IV PRN ×3 (04:18→17:15)
[2021-06-09] MEDS: BLOOD GLUCOSE MONITORING 1 DEV DEV FS SCH ×3 (05:56→18:13)
--- NOTE | 2021-06-09 05:57 | NUR ---
ALL NEEDS ANTICIPATED AND MET. NO S/S RESPIRATORY DISTRESS. FLACC 0. PATIENT CLEAN/DRY. TURNED AND REPOSITIONED WITH RT AT BEDSIDE.
[2021-06-09 06:03] LABS: ANION GAP 7.4 (8-16); CREATININE 0.8 mg/dL (0.6-1.3); POTASSIUM 3.4 mmol/L (3.5-5.1)
[2021-06-09 06:13] LABS: BASOPHILS % (AUTO) 0.3 % (0.0-2.0); EOSINOPHILS # (AUTO) 0.1 K/uL (0-0.4); EOSINOPHILS % (AUTO) 1.3 % (0.0-4.0); HEMATOCRIT 31.2 % (36-52); HEMOGLOBIN 10.5 g/dL (12.0-18.0); LYMPHOCYTES # (AUTO) 1.6 K/uL (2.0-11.5); LYMPHOCYTES % (AUTO) 22.8 % (20.5-51.1); MEAN CORPUSCULAR HEMOGLOBIN 29 pg (27-31); MEAN CORPUSCULAR HGB CONC 34 g/dL (33-37); MEAN CORPUSCULAR VOLUME 85.3 fL (80-94); MONOCYTES # (AUTO) 0.6 K/uL (0.8-1.0); MONOCYTES % (AUTO) 8.4 % (1.7-9.3); NEUTROPHILS # (AUTO) 4.8 K/uL (1.8-7.7); NEUTROPHILS % (AUTO) 67.2 % (42.2-75.2); PLATELET COUNT (AUTO) 218 K/uL (140-450); RED BLOOD CELL COUNT(AUTO) 3.66 MIL/uL (4.20-6.10); RED CELL DISTRIBUTION WIDTH 14.6 % (11.6-13.7); WHITE BLOOD COUNT (AUTO) 7.2 K/uL (4.8-10.8)
[2021-06-09] MEDS: POTASSIUM CHLORIDE 20% 40 MEQ/15 ML UDC GT PRN (06:54)
--- NOTE | 2021-06-09 07:13 | NUR ---
RECEIVED INTUBATED PT WITH A 8.0 ETT SECURED @25 TEETH/GUM ON VENT. SETTINGS A/C PRVC 22, VT 475, PEEP TITRATED TO 7cmH2O AND FIO2 TITRATED TO 35%. PT IS SEDATED NOT IN ANY DISTRESS AT THIS TIME. VENT IS PLUGGED INTO A RED OUTLET WITH ALARMS ON AND FUNCTIONING. AMBU BAG IS PRESENT NEAR BEDSIDE. WILL CONTINUE TO MONITOR.
--- NOTE | 2021-06-09 07:15 | NUR ---
ENDORSED PATIENT TO AM SHIFT NURSE FOR CONTINUITY OF CARE.
--- NOTE | 2021-06-09 07:25 | NUR ---
BEDSIDE REPORT RECEIVED PATIENT FROM ACID LEVELER NURSE, PT SEDATED TO RASS -3. OPENS EYES TO TOUCH, RESPONDS APPROPRIATELY TO QUESTIONS BY NODDING HEAD, ETT TO VENT. RESPIRATIONS EVEN, UNLABORED. NO S/S RESPIRATORY DISTRESS. O2SAT 99%. BILAT CHEST RISE AND FALL, VENT SETTING PRVC FIO2 35%, TV 475, RR 22 PEEP 7, HR 66, SINUS ON MONITOR, BP 100/59, RIGHT FEMORAL TRIPLE LUMEN IN PLACE, SITE WNL, . FLACC 0. SKIN WARM, DRY, COLOR WNL, CAP REFILL <3SEC, . RIGHT FEMORAL ACCESS NOTED, DRESSING CLEAN/DRY AND INTACT, INFUSING PROPOFOL, VERSED, AND FENTANYL. ABDOMEN SOFT, NONTENDER, NONDISTENDED. BOWEL SOUNDS HYPOACTIVE x4 QUADRANTS. OGT NOTED. CONTINUES ON ENTERAL FEEDING, TOLERATING WELL. HOB UP 30 DEGREES. ABDI CATHETER PATENT WITH YELLOW URINE DRAINING TO GRAVITY. PLAN OF CARE REVIEWED AND DISCUSSED. ALL SAFETY MEASURES IN PLACE.
[2021-06-09] MEDS: DEXAMETHASONE 4 MG/ML VIAL IVP SCH (08:09)
[2021-06-09] MEDS: MULTIVITAMIN/MINERALS 1 TAB PO SCH (08:09)
[2021-06-09] MEDS: FAMOTIDINE 20 MG TAB PO SCH ×2 (08:09→20:54)
[2021-06-09] MEDS: ASCORBIC ACID 500 MG/5 ML ORASYR GT SCH ×2 (08:09→20:53)
[2021-06-09] MEDS: VITAMIN D 400 IU TAB GT SCH (08:10)
[2021-06-09] MEDS: POLYETHYLENE GLYCOL 17 GM/PKT PO PRN (08:10)
--- NOTE | 2021-06-09 08:45 | NUR ---
AM MEDS GIVEN, ORAL CARE DONE, RE POSITIONED, PASSIVE ROM EXC OF ALL EXT DONE, ABDI CARE DONE, R FEMORAL CENTRAL LINE DRESSING MISSING BIO PATCH, DRESSING CHANGED PER PROTOCOL.
[2021-06-09] MEDS: APIXABAN 2.5 MG TAB PO SCH ×2 (09:24→20:53)
--- NOTE | 2021-06-09 09:25 | NUR ---
FATHER AND MOTHER TOOK TURNS AT THE DOOR FOR VISIT, PT CONDITION AND PLAN OF CARE DISCUSSED.
--- NOTE | 2021-06-09 10:42 | NUR ---
RT AT BEDSIDE, ETT SECUREMENT DEVICE CHANGED, SKIN SORE NOTED UNDER THE NOSE, PHOTO TAKEN, FOAM DRESSING APPLIED.
--- NOTE | 2021-06-09 11:22 | NUR ---
CXR DONE AT BEDSIDE
--- NOTE | 2021-06-09 11:45 | NUR ---
PT AGITATED, KICKING ARMS AND LEGS AFTER CXR, HALDOL GIVEN AT THIS TIME
--- NOTE | 2021-06-09 11:50 | NUR ---
PATIENT HAD HR 40, STARTED DOPAMINE AND DOCTOR CANNON WILL CONTINUE TO MONITOR. Addendum: 06/10/21 at 0002 by Azalea Hatfield RN RN IGNORE ABOVE NOTE.
[2021-06-09] MEDS: HALOPERIDOL IM 5 MG/ML VIAL IVP PRN (11:51)
--- NOTE | 2021-06-09 12:20 | NUR ---
PT NOW CALM RELAXED, RASS -3
--- NOTE | 2021-06-09 13:50 | NUR ---
DR DAVIS AT BEDSIDE
--- NOTE | 2021-06-09 14:39 | NUR ---
DR HOSKINS AT BEDSIDE
[2021-06-09] MEDS: QUEtiapine FUMARATE 100 MG TAB GT SCH ×2 (17:22→20:53)
--- NOTE | 2021-06-09 17:55 | NUR ---
CHG WIPE DONE, ABDI CARE DONE, POSITION CHANGED, BEDSIDE GLUCOSE 124, NO INSULIN NEEDED PER SLIDING SCALE, URINE OUT PUT FOR THIS SHIFT 1700ML
--- NOTE | 2021-06-09 19:10 | NUR ---
BEDSIDE REPORT RECEIVED PATIENT FROM AM SHIFT NURSE, PT SEDATED TO RASS -3. OPENS EYES TO TOUCH, RESPONDS APPROPRIATELY TO QUESTIONS BY NODDING HEAD, ETT TO VENT. RESPIRATIONS EVEN, UNLABORED. NO S/S RESPIRATORY DISTRESS. O2SAT 95%. BILAT CHEST RISE AND FALL, VENT SETTING PRVC FIO2 40%, TV 475, RR 22 PEEP 7, SINUS ON MONITOR, BP 100/59, RIGHT FEMORAL TRIPLE LUMEN IN PLACE, SITE WNL. FLACC 0. SKIN WARM, DRY, COLOR WNL, CAP REFILL <3SEC, . RIGHT FEMORAL ACCESS NOTED, DRESSING CLEAN/DRY AND INTACT, INFUSING PROPOFOL, VERSED, AND FENTANYL. ABDOMEN SOFT, NONTENDER, NONDISTENDED. BOWEL SOUNDS HYPOACTIVE x4 QUADRANTS. OGT NOTED. CONTINUES ON ENTERAL FEEDING, TOLERATING WELL. HOB UP 30 DEGREES. ABDI CATHETER PATENT WITH YELLOW URINE DRAINING TO GRAVITY. PLAN OF CARE REVIEWED AND DISCUSSED. ALL SAFETY MEASURES IN PLACE.
--- NOTE | 2021-06-09 21:00 | NUR ---
CHECKED RESIDUAL, 50 ML. ADMINISTERED SCHEDULED MEDICATIONS. FLUSHED AFTER. ORAL CARE, ABDI CARE, CHG BATH AND ABDI CARE PROVIDED. WILL CONTINUE TO MONITOR.
[2021-06-09] MEDS ORDERED: DOPamine 400 MG/D5W PREMIX 250 ML IV PRN (23:40)
--- NOTE | 2021-06-09 23:40 | NUR ---
Called [facility] for HR in the 40's (42-46). Spoke with Dr Buenrostro, ordered dopamine to maintain HR greater than 50, CXR stat, ABG stat
[2021-06-09] MEDS ORDERED: DOPamine 400 MG/D5W PREMIX 250 ML IV ONE (23:42)
--- NOTE | 2021-06-09 23:50 | NUR ---
PATIENT HAD HR 40, STARTED DOPAMINE AND DOCTOR PAGE. WILL CONTINUE TO MONITOR.
[2021-06-09] MEDS: MIDAZOLAM MDV 100 MG in NACL 0.9% 80 ML IV PRN (23:52)
[2021-06-10] VITALS (31 sets, daily range): BP systolic 102–147; BP diastolic 58–85
[2021-06-10] MEDS: BLOOD GLUCOSE MONITORING 1 DEV DEV FS SCH ×4 (00:47→18:25)
[2021-06-10] MEDS: HYDRAGUARD CREAM TP SCH ×2 (01:14→13:45)
--- NOTE | 2021-06-10 01:20 | NUR ---
RASS-3, FLACC 0. NO SIGNS OF DISTRESS. WILL CONTINUE TO MONITOR.
--- NOTE | 2021-06-10 03:44 | NUR ---
PATIENT HEART RATE IN LOW 40S, DR. TOY QUIROZ. WILL CONTINUE TO MONITOR.
--- NOTE | 2021-06-10 04:08 | NUR ---
DR. YEAGER PAGED AGAIN. WILL CONTINUE TO MONITOR.
--- NOTE | 2021-06-10 04:15 | NUR ---
DR. YEAGER CALLED BACK. UPDATED THAT PATIENTS HR IS IN LOW 40S. ORDERS GIVEN. WILL CONTINUE TO MONITOR.
[2021-06-10 05:31] LABS: BASOPHILS % (AUTO) 0.4 % (0.0-2.0); EOSINOPHILS # (AUTO) 0.1 K/uL (0-0.4); EOSINOPHILS % (AUTO) 1.4 % (0.0-4.0); HEMATOCRIT 37.7 % (36-52); LYMPHOCYTES # (AUTO) 1.6 K/uL (2.0-11.5); LYMPHOCYTES % (AUTO) 21.9 % (20.5-51.1); MEAN CORPUSCULAR HEMOGLOBIN 28 pg (27-31); MEAN CORPUSCULAR HGB CONC 33 g/dL (33-37); MEAN CORPUSCULAR VOLUME 86.2 fL (80-94); MONOCYTES # (AUTO) 0.7 K/uL (0.8-1.0); MONOCYTES % (AUTO) 9.7 % (1.7-9.3); NEUTROPHILS # (AUTO) 4.8 K/uL (1.8-7.7); NEUTROPHILS % (AUTO) 66.6 % (42.2-75.2); PLATELET COUNT (AUTO) 261 K/uL (140-450); RED BLOOD CELL COUNT(AUTO) 4.37 MIL/uL (4.20-6.10); RED CELL DISTRIBUTION WIDTH 14.8 % (11.6-13.7); WHITE BLOOD COUNT (AUTO) 7.3 K/uL (4.8-10.8)
--- NOTE | 2021-06-10 06:13 | NUR ---
CHECKED BLOOD SUGAR, 102, NO COVERAGE NEEDED. PATIENT REPOSITIONED. ORAL CARE PROVIDED. NO SIGNS OF DISTRESS OR PAIN. WILL CONTINUE TO MONITOR.
[2021-06-10 06:16] LABS: HEMOGLOBIN 12.3 g/dL (12.0-18.0)
[2021-06-10 06:30] LABS: ANION GAP 13.5 (8-16); CARBON DIOXIDE 27.3 mmol/L (21-32); CREATININE 0.8 mg/dL (0.6-1.3); POTASSIUM 3.8 mmol/L (3.5-5.1)
--- NOTE | 2021-06-10 07:20 | NUR ---
RECEIVED REPORT FROM DAY SHIFT NURSE. RASS -2, DRY WEIGHT 156 KG. INTUBATED AND SEDATED, ETT TO VENT SETTINGS AC/PRVC FIO2 35%, TV 475, RR 22, AND PEEP 7. RESPIRATIONS EVEN AND UNLABORED WITH NO SOB OR RESPIRATORY DISTRESS. OGT IN PLACE AND INTACT, CONNECTED TO TUBE FEEDING RUNNING VITAL AT 35 CC/HR FWF 175 Q4H. SR/SB ON MONITOR. RIGHT UPPER ARM PICC LINE DOUBLE LUMEN CLEAN, DRY AND INTACT. IV DRIPS FOUND RUNNING AT FENTANYL 0.75 MCG/KG/HR, PROPOFOL 10 MCG/KG/MIN, PRECEDEX 0.2 MCG/KG/HR. PATIENT HAS A ABDI CATHETER IN PLACE DRAINING VIA GRAVITY. SEE WOUND ASSESSMENT. X RAY TECHNICIAN, PULSE OXIMETER, AND SAFETY MEASURES IN PLACE. BED LOCKED, BED IN LOW POSITION, HEAD OF BED AT 30 DEGREES. WILL CONTINUE TO MONITOR Addendum: 06/11/21 at 0045 by Azalea Hatfield RN RN IGNORE ABOVE NOTE.
--- NOTE | 2021-06-10 07:24 | NUR ---
ENDORSED TO DAY SHIFT RN MARI, FOR CONTINUITY OF CARE.
--- NOTE | 2021-06-10 07:30 | NUR ---
[facility]. RASS -2, DRY WEIGHT 156 KG. INTUBATED AND SEDATED, ETT TO VENT SETTINGS AC/PRVC FIO2 40%, TV 475, RR 22, AND PEEP 7. RESPIRATIONS EVEN AND UNLABORED WITH NO SOB OR RESPIRATORY DISTRESS. OGT IN PLACE AND INTACT, CONNECTED TO TUBE FEEDING RUNNING VITAL AT 35 CC/HR FWF 175 Q4H. SR/SB ON MONITOR. RIGHT UPPER ARM PICC LINE DOUBLE LUMEN CLEAN, DRY AND INTACT. IV DRIPS FOUND RUNNING AT FENTANYL 1.5 MCG/KG/HR, PROPOFOL 10 MCG/KG/MIN, VERSED 5 MG/HR. PATIENT HAS A ABDI CATHETER IN PLACE DRAINING VIA GRAVITY. SKIN IS INTACT. SAFETY MEASURES IN PLACE. WILL CONTINUE TO MONITOR
--- NOTE | 2021-06-10 07:48 | NUR ---
RECEIVED INTUBATED PT WITH A 8.0 ETT SECURED @25 TEETH/GUM ON VENT. SETTINGS A/C PRVC 22, VT 475, PEEP 7cmH2O AND FIO2 40%. PT IS SEDATED NOT IN ANY DISTRESS AT THIS TIME. VENT IS PLUGGED INTO A RED OUTLET WITH ALARMS ON AND FUNCTIONING. AMBU BAG IS PRESENT NEAR BEDSIDE. WILL CONTINUE TO MONITOR.
[2021-06-10] MEDS: fentaNYL citrate - 50mL vial 2.5 MG in NACL 0.9% 200 ML IV PRN (09:09)
[2021-06-10] MEDS: PROPOFOL 1000 MG/100 ML PREMIX 100 ML IV PRN ×2 (09:11→13:47)
--- NOTE | 2021-06-10 09:30 | NUR ---
MINIMAL OGT RESIDUALS. DUE MEDS GIVEN. TOLERATED WELL
--- NOTE | 2021-06-10 09:45 | NUR ---
SEEN AND EXAMINED BY DR FRANCES
[2021-06-10] MEDS: POLYETHYLENE GLYCOL 17 GM/PKT PO PRN (10:08)
[2021-06-10] MEDS: DEXAMETHASONE 4 MG/ML VIAL IVP SCH (10:09)
[2021-06-10] MEDS: APIXABAN 2.5 MG TAB PO SCH ×2 (10:10→20:39)
[2021-06-10] MEDS: QUEtiapine FUMARATE 100 MG TAB GT SCH ×2 (10:10→20:38)
[2021-06-10] MEDS: ASCORBIC ACID 500 MG/5 ML ORASYR GT SCH ×2 (10:11→20:38)
[2021-06-10] MEDS: FAMOTIDINE 20 MG TAB PO SCH ×2 (10:11→20:39)
[2021-06-10] MEDS: MULTIVITAMIN/MINERALS 1 TAB PO SCH (10:11)
[2021-06-10] MEDS: VITAMIN D 400 IU TAB GT SCH (10:11)
--- NOTE | 2021-06-10 10:27 | NUR ---
BEDSIDE MADE CHANGES TO VENT. RR NOW 20. NURSE AWARE. FIO2 TITRATED TO 35%. WILL CONTINUE TO MONITOR.
--- NOTE | 2021-06-10 10:30 | NUR ---
SEEN AND EXAMINED BY DR DAVIS
--- NOTE | 2021-06-10 10:35 | NUR ---
DR DAVIS AT BEDSIDE FOR EVAL, ON THE PHONE NOW WITH PT'S FATHER DISCUSSING PT CONDITION AND PLAN OF CARE.
--- NOTE | 2021-06-10 11:10 | NUR ---
WOUND CARE -RE-EVALUATION NOTE: PT. SKIN CONDITION NO CHANGE, NO NEW SKIN BREAKS, WILL CONTINUE SAME INTERVENTIONS -LEFT EAR BLANCHABLE REDNESS, SKIN INTACT, AREA OFFLOADING -UPPER LIP CHIEF INFORMATION OFFICER RELATED PRESSURE INJURY DRY SCAB 1X1 CM RYAN WOUND SKIN INTACT -ORAL MUCOSA LEFT UPPER LIP EROSION RED, CLEAN SUPERFICIAL DEPTH,NO ODOR -SCROTAL EDEMA, SKIN THIN AND INTACT -LEFT HALLUX COVID TOE WITH 1X1CM 100% MAROON COLOR, RYAN WOUND SKIN EDEMA
--- NOTE | 2021-06-10 12:00 | NUR ---
GLUCOSE LEVEL 98. NO SIGNED OF DISTRESS NOTED.
--- NOTE | 2021-06-10 13:45 | NUR ---
RESPIRATIONS EVEN AND UNLABORED. FLACC 0. NO APPARENT DISTRESS. STILL FIO2 35%.
[2021-06-10] MEDS: DEXMEDETOMIDINE HCL 400 MCG in NACL 0.9% 96 ML IV PRN (13:47)
--- NOTE | 2021-06-10 13:53 | NUR ---
06/10/21 RD FOLLOW UP COMPLETED PLEASE REFER TO NUTRITION ASSESSMENT UNDER CARE ACTIVITY FOR ESTIMATED NUTRITIONAL NEEDS. 1. CONTINUE VITAL AF 1.2 @ 35 ML/HR X 24 HR WITH PROSOURCE TID -THIS WILL PROVIDE 1188 KCAL AND 108 GM OF PROTEIN. -PROPOFOL WILL ALSO PROVIDE ADDITIONAL CALORIES/DAY 2. CONTINUE FREE WATER FLUSH OF 175 ML Q4H 3. CONTINUE VITAMIN C, VITAMIN D, AND MULTIVITAMIN ONCE DAILY 4. RD TO FOLLOW-UP 2-3 DAYS, HIGH RISK ABBE DAVIS RD
--- NOTE | 2021-06-10 15:00 | NUR ---
PT STILL RESTING IN BED. RASS -2. NO RESPIRATORY DISTRESS NOTED. NO S/S OF PAIN. PARENTS BY THE DOOR.
[2021-06-10] MEDS ORDERED: SODIUM PHOSPHATE 118 ML ENEM RC PRN (15:10)
--- NOTE | 2021-06-10 17:40 | NUR ---
PT REMAINS ON DOCUMENTED VENT SETTINGS . NO CHANGE AT THIS TIME. PT NOT IN ANY DISTRESS AT THIS TIME. ETT IS SECURE WITH A PATENT AIRWAY. VENT ALARMS REMAIN ON AND FUNCTIONING.
--- NOTE | 2021-06-10 17:50 | NUR ---
RYAN CARE RENDERED, TURNED AND REPOSITIONED PT. FLEET ENEMA GIVEN FOR CONSTIPATION
--- NOTE | 2021-06-10 19:20 | NUR ---
RECEIVED REPORT FROM DAY SHIFT NURSE. RASS -2, DRY WEIGHT 156 KG. INTUBATED AND SEDATED, ETT TO VENT SETTINGS AC/PRVC FIO2 35%, TV 475, RR 22, AND PEEP 7. RESPIRATIONS EVEN AND UNLABORED WITH NO SOB OR RESPIRATORY DISTRESS. OGT IN PLACE AND INTACT, CONNECTED TO TUBE FEEDING RUNNING VITAL AT 35 CC/HR FWF 175 Q4H. SR/SB ON MONITOR. RIGHT UPPER ARM PICC LINE DOUBLE LUMEN CLEAN, DRY AND INTACT. IV DRIPS FOUND RUNNING AT FENTANYL 0.75 MCG/KG/HR, PROPOFOL 10 MCG/KG/MIN, PRECEDEX 0.2 MCG/KG/HR. PATIENT HAS A ABDI CATHETER IN PLACE DRAINING VIA GRAVITY. SEE WOUND ASSESSMENT. BRICK MAKER, PULSE OXIMETER, AND SAFETY MEASURES IN PLACE. BED LOCKED, BED IN LOW POSITION, HEAD OF BED AT 30 DEGREES. WILL CONTINUE TO MONITOR
[2021-06-10] MEDS: SENNA 8.6 MG TAB GT SCH (20:38)
--- NOTE | 2021-06-10 20:40 | NUR ---
CHECKED RESIDUAL, 250 ML, HELD FEEDING. ADMINISTERED SCHEDULED MEDICATION. FLUSHED AFTER. ORAL CARE AND ABDI CARE PROVIDED. WILL CONTINUE TO MONITOR.
--- NOTE | 2021-06-10 22:00 | NUR ---
CHECKED ON PATIENT. RASS-2, FLACC 0. PATIENT SUCTIONED. WILL CONTINUE TO MONITOR.
[2021-06-11] VITALS (29 sets, daily range): BP systolic 101–151; BP diastolic 45–99
--- NOTE | 2021-06-11 | NUR ---
PATIENT RASS-2, FLACC 0. CHECKED BLOOD SUGAR, 93. CHECKED RESIDUAL, 100 ML, RESTARTED FEEDING. PATIENT SUCTIONED. WILL CONTINUE TO MONITOR.
[2021-06-11] MEDS: HYDRAGUARD CREAM TP SCH ×2 (00:07→13:00)
[2021-06-11] MEDS: BLOOD GLUCOSE MONITORING 1 DEV DEV FS SCH ×4 (00:15→18:22)
--- NOTE | 2021-06-11 02:30 | NUR ---
CHECKED ON PATIENT. PATIENT AWAKE AND AGITATED. INCREASED PRECEDEX. REPOSITIONED PATEINT. WILL CONTINUE TO MONITOR.
--- NOTE | 2021-06-11 04:00 | NUR ---
PATIENT HAD BOWEL MOVEMENT. PATIENT CHANGED. WILL CONTINUE TO MONITOR.
[2021-06-11] MEDS: PROPOFOL 1000 MG/100 ML PREMIX 100 ML IV PRN ×2 (05:19→09:13)
--- NOTE | 2021-06-11 06:05 | NUR ---
PATIENT HAD A BOWEL MOVEMENT. PATIENT CHANGED. WILL CONTINUE TO MONITOR.
[2021-06-11 06:08] LABS: BASOPHILS % (AUTO) 0.6 % (0.0-2.0); EOSINOPHILS # (AUTO) 0.1 K/uL (0-0.4); EOSINOPHILS % (AUTO) 1.9 % (0.0-4.0); HEMATOCRIT 34.4 % (36-52); HEMOGLOBIN 11.5 g/dL (12.0-18.0); LYMPHOCYTES # (AUTO) 1.6 K/uL (2.0-11.5); LYMPHOCYTES % (AUTO) 24.8 % (20.5-51.1); MEAN CORPUSCULAR HEMOGLOBIN 28 pg (27-31); MEAN CORPUSCULAR HGB CONC 33 g/dL (33-37); MONOCYTES # (AUTO) 0.4 K/uL (0.8-1.0); MONOCYTES % (AUTO) 6.6 % (1.7-9.3); NEUTROPHILS # (AUTO) 4.3 K/uL (1.8-7.7); NEUTROPHILS % (AUTO) 66.1 % (42.2-75.2); PLATELET COUNT (AUTO) 191 K/uL (140-450); RED BLOOD CELL COUNT(AUTO) 4.04 MIL/uL (4.20-6.10); RED CELL DISTRIBUTION WIDTH 15.3 % (11.6-13.7); WHITE BLOOD COUNT (AUTO) 6.5 K/uL (4.8-10.8)
[2021-06-11 06:14] LABS: ALBUMIN 2.7 g/dL (3.4-5.0); ANION GAP 11.7 (8-16); CARBON DIOXIDE 28.1 mmol/L (21-32); CREATININE 0.8 mg/dL (0.6-1.3); POTASSIUM 3.8 mmol/L (3.5-5.1); TOTAL BILIRUBIN 0.7 mg/dL (0.0-1.0)
--- NOTE | 2021-06-11 07:06 | NUR ---
RECEIVED INTUBATED PT WITH A 8.0 ETT SECURED @25 TEETH/GUM ON VENT. SETTINGS A/C PRVC 20, VT 475, PEEP 7 AND FIO2 INCREASED TO 40% DUE TO SPO2 85%. NURSE AWARE. PT IS ABLE TO OPEN EYES AND NOD HEAD WHEN SPOKEN TO. PT SUCTIONED OBTAINED SMALL AMOUNT OF CLEAR/WHITE SECRETINS, ACTIVE GAG REFLEX, ETT IS SECURE WITH ANCHOR FAST DEVICE. VENT IS PLUGGED INTO A RED OUTLET WITH ALARMS ON AND FUNCTIONING. WILL CONTINUE TO MONITOR.
--- NOTE | 2021-06-11 07:15 | NUR ---
Assumed pt's care report received from EPIFANIO PIMENTEL met pt sedated on Propofol, Fentanyl and Precedex. all turned off for sedation vacation, pt awake alert follows command, moves all extremities. ETT to ventillator Fio2 40% tolerating well vitals signs stable SR/SB , OGT checked residual <30cc no BM urine to gravity with adequate urine output . Oral , osborne care and suctioned orally and via ETT. For safety pt in restraints and attempting to pull out ETT. pt education on care plan unable to measure comprehension orientation to immediate surroundings to alleviates anxiety.
[2021-06-11] MEDS: fentaNYL citrate - 50mL vial 2.5 MG in NACL 0.9% 200 ML IV PRN (07:19)
--- NOTE | 2021-06-11 07:26 | NUR ---
ENDORSED TO DAY SHIFT RN FOR CONTINUITY OF CARE.
--- NOTE | 2021-06-11 08:23 | NUR ---
pt's dad was here as at this time updates on pt's care plan condition. He requested for pt's doctor for more explanation on tracheostomy as next option. This RN advised pt's dad to wait around for doctor's visit as there is no stipulated times for doctor's visit
[2021-06-11] MEDS: ASCORBIC ACID 500 MG/5 ML ORASYR GT SCH ×2 (08:34→20:17)
[2021-06-11] MEDS: DOCUSATE 100 MG/10 ML UDC GT SCH (08:35)
[2021-06-11] MEDS: QUEtiapine FUMARATE 100 MG TAB GT SCH ×2 (08:36→20:17)
[2021-06-11] MEDS: DEXAMETHASONE 4 MG/ML VIAL IVP SCH (08:36)
[2021-06-11] MEDS: VITAMIN D 400 IU TAB GT SCH (08:36)
[2021-06-11] MEDS: FAMOTIDINE 20 MG TAB PO SCH ×2 (08:36→20:18)
[2021-06-11] MEDS: POLYETHYLENE GLYCOL 17 GM/PKT PO PRN (08:37)
[2021-06-11] MEDS: APIXABAN 2.5 MG TAB PO SCH ×2 (08:38→20:18)
[2021-06-11] MEDS: MULTIVITAMIN/MINERALS 1 TAB PO SCH (08:38)
[2021-06-11] MEDS: DEXMEDETOMIDINE HCL 400 MCG in NACL 0.9% 96 ML IV PRN ×2 (10:00→18:17)
--- NOTE | 2021-06-11 10:00 | NUR ---
Dr Chan's rounds at the bedside all sedation turned off, pt awake assessed pt, ordered received to turned off all sedation, drips and feeding. Changed the vents settings to SBT fio2 40% peep 5 PS 10' pt wide awake follows command tachypnea restless ongoing support at the bedside. Dr Chan also discussed pt's condition and care plan with Pt's dad.
--- NOTE | 2021-06-11 10:01 | NUR ---
PT PLACED ON SBT 2 HOURS PER . PHYSICIAN STATES TO LEAVE HIM FOR 2-3 HOURS TOLERATED AND OBTAIN ABG AND WEANING PARAMETERS FOR POSSIBLE EXTUBATION. NURSE AWARE. WILL CONTINUE TO MONITOR.
--- NOTE | 2021-06-11 10:01 | NUR ---
PER PT PLACED ON SBT CPAP 6 PS 10 AND FIO2 40%. PT IS AWAKE AND ALERT SITTING UP IN BED. FATHER IS AT WINDOW OF ROOM, UPDATED PT STATUS .
--- NOTE | 2021-06-11 11:47 | NUR ---
PT TOLERATING SBT WELL AT THIS TIME. SPO2 90-92%. PT AWAKE ABLE TO NOD HEAD AND FOLLOW SIMPLE COMMANDS. VENT ALARMS SET APPROPRIATELY AND FUNCTIONING.
--- NOTE | 2021-06-11 12:00 | NUR ---
Dressing changed on right femoral CVC , skin checked oral care and suctioned for airway clearance. Restraints and skin care checked.. vitals signs stable pt's dad on the unit visiting
--- NOTE | 2021-06-11 12:39 | NUR ---
PAGED REGARDING ABG RESULTS AND WEANING PARAMETERS. WAITING FOR CALL BACK.
--- NOTE | 2021-06-11 12:42 | NUR ---
STATES TO KEEP SPO2 >=90%.
--- NOTE | 2021-06-11 12:42 | NUR ---
GAVE ABG RESULTS ALONG WITH WEANING PARAMETERS AND LEAK TEST. PHYSICIAN STATES TO EXTUBATE PT AND PLACE ON HIGH FLOW.
--- NOTE | 2021-06-11 13:03 | NUR ---
PT EXTUBATED AND PLACED ON HIGH FLOW 30 L 50% FIO2. NO STRIDOR HEARD ON AUSCULTATION. NURSE BEDSIDE AND AWARE. PT NOT IN ANY DISTRESS AT THIS TIME. WILL CONTINUE TO MONITOR.
--- NOTE | 2021-06-11 16:49 | NUR ---
PT WAS SEEN FOR DYSPHAGIA. PT WAS ABLE TO SAFELY SWALLOW PUREE DIET WITH THIN LIQUID WITHOUT S/SOF ASPIRATION. RECOMMENDATION PUREE DIET WITH THIN LIQUID
--- NOTE | 2021-06-11 16:55 | NUR ---
@ 1633 Swallow eval done at the bedside pt passed no sign of aspiration approved recommendation by speech therapist was thin liquid with pureed diet. @ PT'S family visit as at this time ongoing support education on pt's condition and care plan.
--- NOTE | 2021-06-11 17:06 | NUR ---
@1303 PT finally extubated bt RT and high flow nasal canula applied O2 sat 89 92% tolerating well, frequent restlessness. Attempting to pull tubes, restraints checked skin at the site passive ROM to all extremities, family education on restraints for pt's safety and they verbalized understanding . Pt's vitals signs stable afebrile and denies pain
--- NOTE | 2021-06-11 17:30 | NUR ---
COMPLETE BED BATH AND LINEN CHANGED PT TOLERATED WELL
--- NOTE | 2021-06-11 19:20 | NUR ---
Bedside change of shift report to Sherrell PIMENTEL for continuity of care pt awake alert oriented x2 follows command vitals signs stable afebrile denies pain. Tolerating all care and treatments well no changes in care plan
--- NOTE | 2021-06-11 19:30 | NUR ---
ASSUMED CARE OF PT.INITIAL ASSESSMENT COMPLETED.PT AWAKE,ABLE TO FOLLOW SIMPLE COMMANDS.PT KNOWS HIS NAME AND BIRTHDAY.ON HIGH FLOW 30LPM AND 50% FIO2,NO SOB NOTED.ON THIN LIQUID AND PUREED DIET.GIVEN MASHED POTATO AND PUREED MEAT,NO ASPIRATION NOTED.W/TLC TO RT FEMORAL AREA,SOAKED, DRESSING CHANGED.WITH ABDI CATHETER TO BSD DRAINING SMALL AMT OF YELLOW URINE.PT ABLE TO MOVE ALL EXTREMITIES.DENIES PAIN
[2021-06-11] MEDS: SENNA 8.6 MG TAB GT SCH (20:17)
--- NOTE | 2021-06-11 21:34 | NUR ---
V/B DAD; UPDATED ON PTS PRESENT CONDITION.QUESTIONS ANSWERED
--- NOTE | 2021-06-11 22:02 | NUR ---
TITRATED DUE TO DESAT MID 80s FLOW SLIGHTLY TITRATED TO 32 LPM WELL
[2021-06-12] VITALS (25 sets, daily range): BP systolic 101–142; BP diastolic 49–87
--- NOTE | 2021-06-12 | NUR ---
BM NOTED; LARGE AMT OF SOFT BROWN STOOL.PT CLEANED.PT ABLE TO HELP WITH REPOSITIONING.DENIES PAIN.WILL CONTINUE TO MONITOR
[2021-06-12] MEDS: DEXMEDETOMIDINE HCL 400 MCG in NACL 0.9% 96 ML IV PRN ×2 (00:32→06:35)
[2021-06-12] MEDS: BLOOD GLUCOSE MONITORING 1 DEV DEV FS SCH ×4 (00:36→18:51)
[2021-06-12] MEDS: HYDRAGUARD CREAM TP SCH ×2 (00:36→12:49)
--- NOTE | 2021-06-12 02:47 | NUR ---
PT ASLEEP AT THIS TIME;EASILY AROUSABLE.STILL ON HIGH FLOW NC 55% FIO2 32LPM; NO DISTRESS NOTED AT THIS TIME.
--- NOTE | 2021-06-12 04:15 | NUR ---
PT AWAKE; ATE ICE CREAM, TOLERATING.NO S/SX OF ASPIRATION NOTED.
--- NOTE | 2021-06-12 06:05 | NUR ---
BM NOTED AGAIN; SOFT TO WATERY BROWN STOOL.PT CLEANED.LINENS CHANGED.NO SOB NOTED.ON HIGH FLOW 55% FIO2 32LPM.PT ABLE TO REPOSITION.OBEYS COMMANDS
[2021-06-12 06:14] LABS: BASOPHILS % (AUTO) 0.4 % (0.0-2.0); EOSINOPHILS # (AUTO) 0.2 K/uL (0-0.4); EOSINOPHILS % (AUTO) 2.8 % (0.0-4.0); HEMATOCRIT 33.6 % (36-52); LYMPHOCYTES # (AUTO) 1.6 K/uL (2.0-11.5); LYMPHOCYTES % (AUTO) 21.2 % (20.5-51.1); MEAN CORPUSCULAR HEMOGLOBIN 28 pg (27-31); MEAN CORPUSCULAR HGB CONC 33 g/dL (33-37); MEAN CORPUSCULAR VOLUME 86.1 fL (80-94); MONOCYTES # (AUTO) 0.4 K/uL (0.8-1.0); MONOCYTES % (AUTO) 5.9 % (1.7-9.3); NEUTROPHILS # (AUTO) 5.2 K/uL (1.8-7.7); NEUTROPHILS % (AUTO) 69.7 % (42.2-75.2); PLATELET COUNT (AUTO) 213 K/uL (140-450); RED CELL DISTRIBUTION WIDTH 15.1 % (11.6-13.7); WHITE BLOOD COUNT (AUTO) 7.5 K/uL (4.8-10.8)
[2021-06-12 06:44] LABS: ALBUMIN 2.7 g/dL (3.4-5.0); ANION GAP 10.9 (8-16); CARBON DIOXIDE 28.2 mmol/L (21-32); CREATININE 0.9 mg/dL (0.6-1.3); POTASSIUM 3.1 mmol/L (3.5-5.1); TOTAL BILIRUBIN 1.3 mg/dL (0.0-1.0)
--- NOTE | 2021-06-12 07:18 | NUR ---
RECEIVED REPORT, ASSUMED CARE OF PT. PT RESTING, LAYING ON RIGHT SIDE. MONITOR SHOWING SINUS RHYTHM NO ECTOPY, RESPIRATIONS UNLABORED. HIGH FLOW NASAL CANNULA IN PLACE.
[2021-06-12] MEDS: ASCORBIC ACID 500 MG/5 ML ORASYR GT SCH ×2 (08:37→21:21)
[2021-06-12] MEDS: FAMOTIDINE 20 MG TAB PO SCH ×2 (08:37→21:21)
[2021-06-12] MEDS: DEXAMETHASONE 4 MG/ML VIAL IVP SCH (08:37)
[2021-06-12] MEDS: QUEtiapine FUMARATE 100 MG TAB GT SCH (08:38)
[2021-06-12] MEDS: VITAMIN D 400 IU TAB GT SCH (08:39)
[2021-06-12] MEDS: MULTIVITAMIN/MINERALS 1 TAB PO SCH (08:39)
[2021-06-12] MEDS: APIXABAN 2.5 MG TAB PO SCH ×2 (08:40→21:21)
--- NOTE | 2021-06-12 08:40 | NUR ---
RCV'D PT ON HIGH FLOW 32 L, 55% FIO2. NO SOB OR DISTRESS NOTED. PT IS AWAKE AND ALERT. RN IN ROON. DECREASED FIO2 TO 45 %. RN NOTIFIED. WILL CONTINUE TO MONITOR PATIENT.
[2021-06-12] MEDS: DOCUSATE 100 MG/10 ML UDC GT SCH (08:41)
[2021-06-12] MEDS: NACL 0.45% 1,000 ML IV SCH (10:35)
--- NOTE | 2021-06-12 14:09 | NUR ---
06/12/21 RD FOLLOW UP COMPLETED PLEASE REFER TO NUTRITION ASSESSMENT UNDER CARE ACTIVITY FOR ESTIMATED NUTRITIONAL NEEDS. 1. CONTINUE MECHANICAL SOFT DIET 2. RECOMMEND ENSURE BID 3. PROVIDE ASSISTANCE WITH MEALS 4. RD TO FOLLOW-UP 3-5 DAYS, MODERATE RISK ABBE DAVIS, RD
--- NOTE | 2021-06-12 19:30 | NUR ---
RECEIVED REPORT FROM DAY SHIFT RN; PT AAOX3, FOLLOWING COMMANDS. DENIES PAIN @ THIS TIME. MOVING ALL EXTREMITIES, GENERALIZED WEAKNESS. SR ON MONITOR 70-80S, TRACE EDEMA NOTED. LUNGS DIMINISHED; NON PRODUCTIVE COUGH NOTED. ABD SOFT NON DISTENDED, TOLERATING PO INTAKE; MECH SOFT DIET. ABDI CATH IN PLACE; DRAINING YELLOW URINE. SKIN INTACT; R FEMORAL TRIPLE LUMEN CATHETER IN PLACE; WITH IVF RUNNING. HOB>30 DEGREES. DENIES PAIN. BED LOCKED IN LOWEST POSITION. CALL LIGHT WITHIN REACH.
--- NOTE | 2021-06-12 20:00 | NUR ---
BEDPAN PLACED. X1 LARGE BM NOTED.
--- NOTE | 2021-06-12 20:30 | NUR ---
FATHER/ MOTHER @ BEDSIDE. PT CONDITION UPDATED TO FAMILY. ALL QUESTIONS ANSWERED.
[2021-06-12] MEDS: SENNA 8.6 MG TAB GT SCH (21:21)
[2021-06-12] MEDS: QUEtiapine FUMARATE 100 MG TAB PO SCH (21:21)
--- NOTE | 2021-06-12 21:30 | NUR ---
PT TURNED AND REPOSITIONED; LINEN CHANGED. PM MEDS GIVEN. WILL CONTINUE TO OBSERVE
--- NOTE | 2021-06-12 23:15 | NUR ---
PT AWAKE WATCHING TELEVISION; NO ACUTE DISTRESS NOTED
[2021-06-13] VITALS (20 sets, daily range): BP systolic 102–144; BP diastolic 54–87
--- NOTE | 2021-06-13 00:35 | NUR ---
PT HAS EYES CLOSED; AROUSABLE NO ACUTE DISTRESS NOTED
[2021-06-13] MEDS: HYDRAGUARD CREAM TP SCH ×2 (01:00→13:14)
--- NOTE | 2021-06-13 02:41 | NUR ---
PT HAS EYES CLOSED; AROUSABLE. NO ACUTE DISTRESS NOTED. VSS.
--- NOTE | 2021-06-13 05:35 | NUR ---
BLANKETS GIVEN; PT REPOSITIONED FOR COMFORT. VSS.
[2021-06-13 05:46] LABS: BASOPHILS % (AUTO) 0.5 % (0.0-2.0); EOSINOPHILS # (AUTO) 0.2 K/uL (0-0.4); EOSINOPHILS % (AUTO) 3.1 % (0.0-4.0); HEMATOCRIT 34.1 % (36-52); HEMOGLOBIN 11.3 g/dL (12.0-18.0); LYMPHOCYTES # (AUTO) 1.7 K/uL (2.0-11.5); LYMPHOCYTES % (AUTO) 22.2 % (20.5-51.1); MEAN CORPUSCULAR HEMOGLOBIN 28 pg (27-31); MEAN CORPUSCULAR HGB CONC 33 g/dL (33-37); MEAN CORPUSCULAR VOLUME 85.4 fL (80-94); MONOCYTES # (AUTO) 0.5 K/uL (0.8-1.0); NEUTROPHILS # (AUTO) 5.4 K/uL (1.8-7.7); NEUTROPHILS % (AUTO) 68.2 % (42.2-75.2); PLATELET COUNT (AUTO) 202 K/uL (140-450); RED BLOOD CELL COUNT(AUTO) 3.99 MIL/uL (4.20-6.10); RED CELL DISTRIBUTION WIDTH 15.3 % (11.6-13.7); WHITE BLOOD COUNT (AUTO) 7.9 K/uL (4.8-10.8)
[2021-06-13 05:59] LABS: ANION GAP 12.7 (8-16); CARBON DIOXIDE 27.5 mmol/L (21-32); CREATININE 0.8 mg/dL (0.6-1.3); POTASSIUM 3.2 mmol/L (3.5-5.1)
[2021-06-13] MEDS: BLOOD GLUCOSE MONITORING 1 DEV DEV FS SCH ×5 (06:36→23:51)
--- NOTE | 2021-06-13 07:15 | NUR ---
RECEIVED REPORT,ASSUMED CARE OF PT. PT RESTING, TOLERATING HIGH FLOW NASAL CANNULA, NO DISTRESS NOTED. CALM/COOPERATIVE
--- NOTE | 2021-06-13 07:30 | NUR ---
REPORT GIVEN TO DAY SHIFT FOR CONTINUITY OF CARE.
[2021-06-13] MEDS: ASCORBIC ACID 500 MG/5 ML ORASYR GT SCH ×2 (08:59→20:47)
[2021-06-13] MEDS: DEXAMETHASONE 4 MG/ML VIAL IVP SCH (08:59)
[2021-06-13] MEDS: VITAMIN D 400 IU TAB GT SCH (08:59)
[2021-06-13] MEDS: DOCUSATE 100 MG/10 ML UDC GT SCH (08:59)
[2021-06-13] MEDS: FAMOTIDINE 20 MG TAB PO SCH ×2 (09:00→20:47)
[2021-06-13] MEDS: QUEtiapine FUMARATE 100 MG TAB PO SCH ×2 (09:00→20:47)
[2021-06-13] MEDS: MULTIVITAMIN/MINERALS 1 TAB PO SCH (09:02)
[2021-06-13] MEDS: POLYETHYLENE GLYCOL 17 GM/PKT PO PRN (09:02)
[2021-06-13] MEDS: APIXABAN 2.5 MG TAB PO SCH ×2 (09:02→20:48)
[2021-06-13] MEDS: NACL 0.45% 1,000 ML IV SCH (09:09)
[2021-06-13] MEDS ORDERED: POTASSIUM CHLORIDE 10 MEQ TABER PO SCH (10:30)
--- NOTE | 2021-06-13 12:44 | NUR ---
Covering for primary RN. Pt taken lunch tray. Patient refusing to eat at this time. Pt offered help and states he wants to rest for now. All other needs addressed.
--- NOTE | 2021-06-13 19:30 | NUR ---
RECEIVED REPORT FROM DAY SHIFT RN; PT AAOX3, FOLLOWING COMMANDS WITH PERIODS OF CONFUSION. DENIES PAIN @ THIS TIME. MOVING ALL EXTREMITIES, GENERALIZED WEAKNESS. SR ON MONITOR 60-70S. LUNGS DIMINISHED; NON PRODUCTIVE COUGH NOTED. ABD SOFT NON DISTENDED, TOLERATING PO INTAKE; MECH SOFT DIET. ABDI CATH IN PLACE; DRAINING YELLOW URINE. SKIN INTACT; R FEMORAL TRIPLE LUMEN CATHETER IN PLACE; WITH IVF RUNNING. HOB>30 DEGREES. DENIES PAIN. BED LOCKED IN LOWEST POSITION. CALL LIGHT WITHIN REACH.
--- NOTE | 2021-06-13 20:45 | NUR ---
RYAN CARE DONE; X2 LARGE BM ON BEDPAN/COMMODE. VSS.
[2021-06-13] MEDS: SENNA 8.6 MG TAB GT SCH (20:47)
--- NOTE | 2021-06-13 23:35 | NUR ---
PT HAS EYES CLOSED; AROUSABLE DENIES PAIN; TOLERATING HI FLOW NC. VSS.
[2021-06-14] VITALS: BP 123/76
[2021-06-14] MEDS: HYDRAGUARD CREAM TP SCH ×2 (01:00→13:14)
[2021-06-14] MEDS: NACL 0.45% 1,000 ML IV SCH ×2 (02:35→22:44)
--- NOTE | 2021-06-14 02:35 | NUR ---
PT HAS EYES CLOSED; AROUSABLE; VSS. WILL CONTINUE TO OBSERVE
[2021-06-14 04:00] VITALS: BP 123/76
--- NOTE | 2021-06-14 04:55 | NUR ---
PT ASSISTED TO SIT @ SIDE OF BED; REPOSITIONED FOR COMFORT. NO ACUTE DISTRESS NOTED.
[2021-06-14 06:00] LABS: BASOPHILS % (AUTO) 0.6 % (0.0-2.0); EOSINOPHILS # (AUTO) 0.3 K/uL (0-0.4); EOSINOPHILS % (AUTO) 4.9 % (0.0-4.0); HEMATOCRIT 34.5 % (36-52); HEMOGLOBIN 11.5 g/dL (12.0-18.0); LYMPHOCYTES # (AUTO) 1.7 K/uL (2.0-11.5); LYMPHOCYTES % (AUTO) 27.1 % (20.5-51.1); MEAN CORPUSCULAR HEMOGLOBIN 29 pg (27-31); MEAN CORPUSCULAR HGB CONC 33 g/dL (33-37); MEAN CORPUSCULAR VOLUME 85.9 fL (80-94); MONOCYTES # (AUTO) 0.5 K/uL (0.8-1.0); MONOCYTES % (AUTO) 8.2 % (1.7-9.3); NEUTROPHILS # (AUTO) 3.8 K/uL (1.8-7.7); NEUTROPHILS % (AUTO) 59.2 % (42.2-75.2); PLATELET COUNT (AUTO) 212 K/uL (140-450); RED BLOOD CELL COUNT(AUTO) 4.02 MIL/uL (4.20-6.10); RED CELL DISTRIBUTION WIDTH 15.4 % (11.6-13.7); WHITE BLOOD COUNT (AUTO) 6.4 K/uL (4.8-10.8)
[2021-06-14 06:22] LABS: CARBON DIOXIDE 26.3 mmol/L (21-32); CREATININE 0.8 mg/dL (0.6-1.3); POTASSIUM 3.3 mmol/L (3.5-5.1)
[2021-06-14] MEDS: BLOOD GLUCOSE MONITORING 1 DEV DEV FS SCH (06:22)
[2021-06-14 08:00] VITALS: BP 132/86
--- NOTE | 2021-06-14 08:25 | NUR ---
PATIENT ON EDGE OF BED WITHOUT GOWN, TAKING OF 02, STATING HE IS GOING TO LEAVE. PATIENT REORIENTED TO ROOM AND PUT OXYGEN BACK ON . PT 72% O2 AT THIS TIME , PT NOT FOLLOWING COMMANDS.
--- NOTE | 2021-06-14 08:27 | NUR ---
PT REASSESSED 02 93% AT THIS TIME. FATHER AT BEDSIDE PT REORIENTED AND VERBALIZED UNDERSTANDING .
[2021-06-14] MEDS: DEXAMETHASONE 4 MG/ML VIAL IVP SCH (08:39)
[2021-06-14] MEDS: MULTIVITAMIN/MINERALS 1 TAB PO SCH (08:39)
[2021-06-14] MEDS: APIXABAN 2.5 MG TAB PO SCH ×2 (08:41→20:58)
[2021-06-14] MEDS: QUEtiapine FUMARATE 100 MG TAB PO SCH ×2 (08:42→20:58)
[2021-06-14] MEDS: DOCUSATE 100 MG/10 ML UDC GT SCH (08:42)
[2021-06-14] MEDS: FAMOTIDINE 20 MG TAB PO SCH ×2 (08:42→20:58)
[2021-06-14] MEDS: POLYETHYLENE GLYCOL 17 GM/PKT PO PRN (08:43)
--- NOTE | 2021-06-14 08:45 | NUR ---
PT REASSESSED PT RESTING IN BED O2 ON . 98% AT THIS TIME . BREATHING IS SYMMETRICAL AND UNLABORED.
[2021-06-14] MEDS: VITAMIN D 400 IU TAB GT SCH (08:47)
[2021-06-14] MEDS ORDERED: HALOPERIDOL IM 5 MG/ML VIAL IVP PRN (08:55)
[2021-06-14] MEDS ORDERED: HALOPERIDOL IM 5 MG/ML VIAL IM PRN (09:00)
--- NOTE | 2021-06-14 09:00 | NUR ---
SPOKE TO MD REGARDING PRN FOR AGITATION AND ANXIETY. MD PITTS HE WILL ASSESS PT. `
[2021-06-14] MEDS ORDERED: POTASSIUM CHLORIDE 20% 40 MEQ/15 ML UDC PO PRN (10:20)
--- NOTE | 2021-06-14 11:14 | NUR ---
PT GIVEN CARE ORAL AND BATHING SUPPLIES AT BEDSIDE. PATIENT RESTING IN BED, CALM, AND COOPERATIVE. PT FATHER LEAVING BEDSIDE AND PLANS TO RETURN LATER. REORIENTED PT TO ROOM . CALL LIGHT IN REACH. ALL SAFETY MEASURES IN PLACE
[2021-06-14 12:00] VITALS: BP 137/97
--- NOTE | 2021-06-14 12:02 | NUR ---
PT BS CHECKED: 95. DC ORDER FOR BS CHECK Q6 AND SLIDING SCALE PER MD ORDER. PT RESTING IN BED, CALM, AND COOPERATIVE. NO S/S OF DISTRESS. PT PROVIDED NEW ID BAND. CALL LIGHT IN REACH. ALL SAFETY MEASURES IN PLACE.
[2021-06-14] MEDS ORDERED: LORazepam 2 MG/ML VIAL IVP PRN (12:20)
--- NOTE | 2021-06-14 14:15 | NUR ---
PT RECEIVED CHLORHEXIDINE WASH PER CENTRAL LINE PROTOCOL. REINFORCED NEED FOR O2 AND NC PLACEMENT. PT REQUESTED NC TAPED TO FACE. EDUCATED PT ON RISKS FOR PRESSURE ULCERS. PT VERBALIZED UNDERSTANDING. FATHER AT BEDSIDE. PT CALM AND COOPERATIVE. CALL LIGHT IN REACH. ALL SAFETY MEASURES IN PLACE.
[2021-06-14 16:00] VITALS: BP 119/67
--- NOTE | 2021-06-14 16:36 | NUR ---
RT DOWNGRADED O2 FROM HIGH FLOW NC TO 15L NC. PT TOLERATING WELL. EDUCATED PT ON BREATHING THROUGH NOSE. REINFORCED IS TEACHING. PATIENT VERBALIZED UNDERSTANDING. WILL CONTINUE TO MONITOR. CHANGED CENTRAL LINE DRESSING. PT TOLERATED DRESSING CHANGE WELL. FATHER AT BEDSIDE. CALL LIGHT IN REACH. ALL SAFETY MEASURES IN PLACE.
--- NOTE | 2021-06-14 18:21 | NUR ---
ROUNDED ON PT. PT RESTING IN BED. NO S/S OF DISTRESS. PARENTS AT BEDSIDE. FOOD TRAY AT BEDSIDE. PT TOLERATING 15L NC O2 WELL. CALL LIGHT IN REACH. ALL SAFETY MEASURES IN PLACE.
--- NOTE | 2021-06-14 19:24 | NUR ---
REPORT GIVEN TO MAINTENANCE PIPEFITTER NURSE. PT STABLE AND RESTING. PARENTS AT BEDSIDE. CALL LIGHT IN REACH. ALL SAFETY MEASURES IN PLACE
--- NOTE | 2021-06-14 19:24 | NUR ---
RECEIVED PATIENT FROM AM SHIFT NURSE FOR CONTINUITY OF CARE. AAOX3, ABLE TO MAKE NEEDS KNOWN. RESPIRATIONS EVEN, UNLABORED. NO S/S RESPIRATORY DISTRESS. CONTINUES ON O2 NC WITH O2SAT 93%. S1/S2 AUSCULTATED. DENIES PAIN. SKIN WARM, DRY. RIGHT FEMORAL ACCESS NOTED, DRESSING CLEAN/DRY AND INTACT, ABDOMEN SOFT, NONTENDER, NONDISTENDED. BOWEL SOUNDS ACTIVE x4 QUADRANTS. HOB UP 30 DEGREES. ABDI CATHETER PATENT WITH YELLOW URINE DRAINING TO GRAVITY. PLAN OF CARE DISCUSSED. FAMILY AT BEDSIDE. CLOSE MONITORING BY ALL STAFF. SAFETY PRECAUTIONS IN PLACE. ISOLATION PRECAUTIONS OBSERVED BY ALL STAFF. CALL LIGHT IN REACH AT ALL TIMES.
[2021-06-14 20:00] VITALS: BP 122/67
[2021-06-14] MEDS: ASCORBIC ACID 500 MG/5 ML ORASYR PO SCH (20:58)
[2021-06-14] MEDS: SENNA 8.6 MG TAB PO SCH (20:58)
--- NOTE | 2021-06-14 21:30 | NUR ---
DUE MEDS GIVEN. NO S/S RESPIRATORY DISTRESS. NO C/O PAIN. PATIENT IS CLEAN/DRY. CALL LIGHT IN REACH AT ALL TIMES.
--- NOTE | 2021-06-14 23:00 | NUR ---
PATIENT IS RESTING COMFORTABLY IN BED. NO S/S RESPIRATORY DISTRESS. DENIES PAIN. PATIENT IS CLEAN/DRY. SAFETY PRECAUTIONS IN PLACE. ISOLATION PRECAUTIONS OBSERVED BY ALL STAFF. CALL LIGHT IN REACH AT ALL TIMES.
[2021-06-15] VITALS: BP 123/80
[2021-06-15] MEDS: HYDRAGUARD CREAM TP SCH ×2 (00:18→13:22)
--- NOTE | 2021-06-15 01:12 | NUR ---
MADE ROUNDS. PATIENT IS ASLEEP. NO S/S RESPIRATORY DISTRESS. PATIENT IS CLEAN/DRY. CALL LIGHT IN REACH.
--- NOTE | 2021-06-15 03:00 | NUR ---
RT AT BEDSIDE. NO S/S RESPIRATORY DISTRESS. NO C/O PAIN. PATIENT IS CLEAN/DRY. CALL LIGHT IN REACH.
--- NOTE | 2021-06-15 03:10 | NUR ---
PT SLEEPING COMFORTABLY ON 4L NC SPO2 98%
[2021-06-15 04:00] VITALS: BP 126/78
--- NOTE | 2021-06-15 05:00 | NUR ---
ALL NEEDS ANTICIPATED AND MET. NO S/S RESPIRATORY DISTRESS. NO C/O PAIN. PATIENT IS CLEAN/DRY. CALL LIGHT IN REACH.
[2021-06-15 06:46] LABS: BASOPHILS # (AUTO) 0.1 K/uL (0.00-0.22); BASOPHILS % (AUTO) 1.6 % (0.0-2.0); EOSINOPHILS # (AUTO) 0.5 K/uL (0-0.4); EOSINOPHILS % (AUTO) 8.3 % (0.0-4.0); HEMATOCRIT 33.4 % (36-52); HEMOGLOBIN 11.2 g/dL (12.0-18.0); LYMPHOCYTES # (AUTO) 1.8 K/uL (2.0-11.5); LYMPHOCYTES % (AUTO) 33.6 % (20.5-51.1); MEAN CORPUSCULAR HEMOGLOBIN 28 pg (27-31); MEAN CORPUSCULAR HGB CONC 33 g/dL (33-37); MEAN CORPUSCULAR VOLUME 84.7 fL (80-94); MONOCYTES # (AUTO) 0.5 K/uL (0.8-1.0); MONOCYTES % (AUTO) 8.7 % (1.7-9.3); NEUTROPHILS # (AUTO) 2.6 K/uL (1.8-7.7); NEUTROPHILS % (AUTO) 47.8 % (42.2-75.2); PLATELET COUNT (AUTO) 203 K/uL (140-450); RED BLOOD CELL COUNT(AUTO) 3.95 MIL/uL (4.20-6.10); RED CELL DISTRIBUTION WIDTH 15.4 % (11.6-13.7); WHITE BLOOD COUNT (AUTO) 5.5 K/uL (4.8-10.8)
[2021-06-15 07:19] LABS: ALBUMIN 2.8 g/dL (3.4-5.0); ANION GAP 10.8 (8-16); CARBON DIOXIDE 28.7 mmol/L (21-32); CREATININE 0.8 mg/dL (0.6-1.3); POTASSIUM 3.5 mmol/L (3.5-5.1)
--- NOTE | 2021-06-15 07:24 | NUR ---
ENDORSED PATIENT TO AM SHIFT NURSE FOR CONTINUITY OF CARE.
[2021-06-15 08:00] VITALS: BP 125/78
[2021-06-15] MEDS: VITAMIN D 400 IU TAB GT SCH (08:25)
[2021-06-15] MEDS: DEXAMETHASONE 4 MG/ML VIAL IVP SCH (08:25)
[2021-06-15] MEDS: DOCUSATE 100 MG/10 ML UDC PO SCH (08:26)
[2021-06-15] MEDS: APIXABAN 2.5 MG TAB PO SCH (08:27)
[2021-06-15] MEDS: FAMOTIDINE 20 MG TAB PO SCH ×2 (08:27→21:56)
[2021-06-15] MEDS: MULTIVITAMIN/MINERALS 1 TAB PO SCH (08:28)
[2021-06-15] MEDS: QUEtiapine FUMARATE 100 MG TAB PO SCH ×2 (08:28→21:56)
[2021-06-15] MEDS: ASCORBIC ACID 500 MG/5 ML ORASYR PO SCH ×2 (08:28→21:56)
--- NOTE | 2021-06-15 11:21 | NUR ---
PATIENT SLEEPING IN BED PRONE. BREATHING EVEN AND UNLABORED, NO SIGNS OF ACUTE DISTRESS NOTED ON DOCUMENT NC SETTINGS.
[2021-06-15 12:00] VITALS: BP 115/68
--- NOTE | 2021-06-15 13:30 | NUR ---
PER MD REQUEST PATIENT WAS REMOVED FROM OXYGEN AT BEDSIDE TO VERIFY NEED FOR OXYGEN AT HOME. PATIENT WAS TAKEN OFF NASAL CANNULA AND SATURATION DROP WAS NOTED RIGHT AWAY. AFTER LESS THEN TWO MINUTES SATURATIONS WERE NOTED AT 83-84. PATIENT WAS PLACED BACK ON 5 LITERS NASAL CANNULA AND SATURATIONS SLOWLY ALBIN BACK TO BASELINE OF LOW 90S. INFORMED PATIENT AND FAMILY MEMBER OF DESATURATION AND NOTATION.
--- NOTE | 2021-06-15 15:33 | NUR ---
PATIENT CALM, SLEEPING PRONE IN BED, NO SIGNS OF ACUTE DISTRESS NOTED. WILL CONTINUE TO MONITOR.
[2021-06-15 16:00] VITALS: BP 121/72
--- NOTE | 2021-06-15 18:38 | NUR ---
PATIENT CALM IN BED, HAVING DINNER AT THIS TIME. NO SIGNS OF ACUTE DISTRESS NOTED.
[2021-06-15] MEDS: NACL 0.45% 1,000 ML IV SCH (18:45)
--- NOTE | 2021-06-15 19:45 | NUR ---
RECEIVED REPORT FROM MAGGIE PIMENTEL FOR CONTINUITY OF CARE. PT SITTING UP AAOX4 WITH FAMILY AT BEDSIDE. NO APPARENT S/S OF ACUTE DISTRESS. BREATHING EVEN AND UNLABORED ON 6L NC WITH O2 SAT OF 94%. R FEMORAL CENTRAL LINE INTACT/PATENT. ABDI CATH INTACT/PATENT WITH URINE DRAINING TO GRAVITY. POC AND WHITE COMMUNICATION BOARD UPDATED. BED IN LOW/LOCKED POSITION. CALL LIGHT WITHIN REACH. PT ENCOURAGED TO CALL FOR ANY NEEDS/ASSISTANCE. WILL CONTINUE TO MONITOR.
[2021-06-15 20:00] VITALS: BP 138/81
[2021-06-15] MEDS: SENNA 8.6 MG TAB PO SCH (21:00)
--- NOTE | 2021-06-15 21:10 | NUR ---
CALL OUT TO DR. MCKEON FOR ORDERS. PT C/O R SHOULD PAIN, NO PAIN MEDS ON BOARD. WILL AWAIT CALL BACK.
[2021-06-15] MEDS ORDERED: HYDROcodone/APAP 5/325 MG 1 TAB TAB ONE (22:04)
[2021-06-15] MEDS: HYDROcodone/APAP 5/325 MG 1 TAB TAB PO PRN (22:32)
--- NOTE | 2021-06-15 23:17 | NUR ---
PT CALM IN BED WITH FAMILY AT BEDSIDE. PT ON 4L NC SATING 93% PT IS STABLE WITH NO RESP DISTRESS
[2021-06-16] VITALS: BP 102/55
[2021-06-16] MEDS: HYDRAGUARD CREAM TP SCH ×2 (01:17→13:06)
[2021-06-16 04:00] VITALS: BP 113/65
[2021-06-16] MEDS: HYDROcodone/APAP 5/325 MG 1 TAB TAB PO PRN ×2 (05:07→21:04)
--- NOTE | 2021-06-16 07:01 | NUR ---
REPORT GIVEN TO FRANK PIMENTEL FOR CONTINUITY OF CARE. PT SITTING UP AAOX4. NO APPARENT S/S OF ACUTE DISTRESS. BREATHING EVEN AND UNLABORED. BED IN LOW/LOCKED POSITION. CALL LIGHT WITHIN REACH. ALL NEEDS MET AT THIS TIME.
--- NOTE | 2021-06-16 07:58 | NUR ---
RECEIVED REPORT FROM NIGHT NURSE PT IS TRANSFERRED FROM ICU ON . ALERT ORIENTED X 4 VERBALLY RESPONSIVE, DENIES PAIN AND DISCOMFORT. LAST NIGHT PT WAS BRADYCARDIAC. PT IS ON 6 L OF OXYGEN, O2 SAT IS 91%. PT HAS HX OF COVID PNA AND RESPIRATORY FAILURE. HAS FEMORAL CENTRAL LINE TKO. POC DISCUSSED WILL CONTINUE TO FOLLOW.
[2021-06-16 08:00] VITALS: BP 96/53
[2021-06-16] MEDS: DOCUSATE 100 MG/10 ML UDC PO SCH (09:21)
[2021-06-16] MEDS: FAMOTIDINE 20 MG TAB PO SCH ×2 (09:21→21:03)
[2021-06-16] MEDS: MULTIVITAMIN/MINERALS 1 TAB PO SCH (09:21)
[2021-06-16] MEDS: VITAMIN D 400 IU TAB GT SCH (09:21)
[2021-06-16] MEDS: QUEtiapine FUMARATE 100 MG TAB PO SCH ×2 (09:21→21:03)
[2021-06-16] MEDS: DEXAMETHASONE 4 MG/ML VIAL IVP SCH (09:21)
[2021-06-16] MEDS: ENOXAPARIN 40 MG/0.4 ML SYR SUBQ SCH (09:22)
[2021-06-16] MEDS: ASCORBIC ACID 500 MG/5 ML ORASYR PO SCH ×2 (09:22→21:04)
--- NOTE | 2021-06-16 09:48 | NUR ---
PT VERBALIZE THE FEELINGS TO LEAVE AMA, EDUCATED THE PT ABOUT THE RISK OF LEAVING HOSPITAL. EDUCATED PT THAT HE IS ON 6 L OF OXYGEN, AND NEED OXYGEN IT IS NOT SAFE FOR HIM TO LEAVE HOSPITAL. PT WAS TRYING TO PULL ABDI CATHETER, EDUCATED PT THAT BALLOON IS INFLATED WITH THE ABDI, IF HE PULLED OUT THERE IS RISK OF URETHRAL DAMAGE. AFTER EDUCATION PT VERBALIZED THAT HE WILL NOT PULL ABDI OR IV ACCESS. PT IS WILLING TO STAY UNTIL CLEARED BY THE DOCTOR. PT RECEIVED ALL THE MEDICATION, NO SOB NOTED AT THE MOMENT., PT DENIES PAIN AND DISCOMFORT.
[2021-06-16] MEDS ORDERED: QUET100T44 PO (11:00)
[2021-06-16] MEDS ORDERED: APIX2.5 PO (11:00)
[2021-06-16] MEDS ORDERED: ASCO-672 PO (11:00)
--- NOTE | 2021-06-16 11:00 | NUR ---
HOURLY ROUND IS DONE, PT IS IN THE BED, DENIES PAIN AND DISCOMFORT, O2 SAT IS 93% AT THE MOMENT. CALL LIGHT IS WITH IN REACH BED IN LOWER POSITION. WILL CONTINUE TO ASSESS THE PT.
[2021-06-16 12:00] VITALS: BP 129/89
--- NOTE | 2021-06-16 13:07 | NUR ---
REMOVE ABDI CATHETER PER DR. AMELIA HAN'S ORDER. PT TOLERATED THE ABDI REMOVAL WELL. NO RESISTANCES NOTED.DENIES PAIN AND DISCOMFORT, NO DISCHARGE NOTED. TRIED TO GET PERIPHERAL ACCESS, WASN'T ABLE TO GET THE ACCESS ON TWO ATTEMPTS. WILL KEEP THE CENTRAL ACCESS PER MD ORDER.
[2021-06-16 16:00] VITALS: BP 95/47
--- NOTE | 2021-06-16 19:10 | NUR ---
RECEIVED REPORT FROM FRANK PIMENTEL FOR CONTINUITY OF CARE. PT SITTING UP AAOX4. NO APPARENT S/S OF ACUTE DISTRESS. BREATHING EVEN AND UNLABORED ON 4L NC WITH O2 SAT OF 93%. NO C/O CP, SOB OR PAIN. R FEMORAL TL CENTRAL LINE INTACT/PATENT. POC AND WHITE COMMUNICATION BOARD UPDATED. BED IN LOW/LOCKED POSITION. CALL LIGHT WITHIN REACH. PT ENCOURAGED TO CALL FOR ANY NEEDS/ASSISTANCE. WILL CONTINUE TO MONITOR.
--- NOTE | 2021-06-16 19:18 | NUR ---
ENDORSED THE NIGHT NURSE FOR CONTINUITY OF CARE. PT IS STABLE.
[2021-06-16 20:00] VITALS: BP 118/74
[2021-06-16] MEDS: SENNA 8.6 MG TAB PO SCH (21:00)
[2021-06-17] VITALS: BP 114/64
[2021-06-17] MEDS: HYDRAGUARD CREAM TP SCH ×2 (01:23→11:57)
[2021-06-17 04:00] VITALS: BP 132/97
--- NOTE | 2021-06-17 07:24 | NUR ---
PHYSICAL THERAPY CO-SIGN The Physical Therapy Progress Notes documented by [facility] Specialist have been reviewed. Reviewed/Co-Signed by: Dorene Quinones Documentation Done by: RICK SANCHEZ PTA Addendum: 06/17/21 at 1118 by Dorene Quinones PT Amended: Links added.
--- NOTE | 2021-06-17 07:50 | NUR ---
RECEIVED REPORT FROM NIGHT NURSE PT IS SLEEPING IN THE BED AT THE MOMENT CHEST RISE AND FALL IS VISIBLE. PT IS IN DROPLET ISOLATION DUE TO COVID LAST PCR IS NEGATIVE AND THE RECENT PCR IS PENDING. PT HAS CENTRAL LINE ON FEMORAL AREA. DOES NOT HAVE ANY PERIPHERAL ACCESS. SOFT MECHANICAL DIET. SKIN IS INTACT. NO VISIBLE S/S OF SOB NOTED. PT IS ON OXYGEN VIA NASAL CANNULA. POC DISCUSSED WILL CONTINUE TO FOLLOW.
[2021-06-17 08:00] VITALS: BP 155/91
[2021-06-17] MEDS ORDERED: DEXAMETHASONE 4 MG/ML VIAL IVP SCH (09:00)
[2021-06-17] MEDS: POLYETHYLENE GLYCOL 17 GM/PKT PO PRN (09:25)
[2021-06-17] MEDS: ASCORBIC ACID 500 MG/5 ML ORASYR PO SCH (09:25)
[2021-06-17] MEDS: DOCUSATE 100 MG/10 ML UDC PO SCH (09:25)
[2021-06-17] MEDS: MULTIVITAMIN/MINERALS 1 TAB PO SCH (09:26)
[2021-06-17] MEDS: FAMOTIDINE 20 MG TAB PO SCH (09:26)
[2021-06-17] MEDS: VITAMIN D 400 IU TAB GT SCH (09:27)
[2021-06-17] MEDS: QUEtiapine FUMARATE 100 MG TAB PO SCH (09:27)
[2021-06-17] MEDS: ENOXAPARIN 40 MG/0.4 ML SYR SUBQ SCH (09:28)
[2021-06-17] MEDS ORDERED: DEC4 PO (09:39)
[2021-06-17 12:00] VITALS: BP 103/60
--- NOTE | 2021-06-17 13:09 | NUR ---
06/17/21 RD FOLLOW UP COMPLETED PLEASE REFER TO NUTRITION ASSESSMENT UNDER CARE ACTIVITY FOR ESTIMATED NUTRITIONAL NEEDS. 1. CONTINUE MECHANICAL SOFT DIET + ENSURE BID 2. PROVIDE ASSISTANCE WITH MEALS. 3. RD TO FOLLOW UP 3-5 DAY, MODERATE RISK. ABBE DAVIS, RD
[2021-06-17 14:18] VITALS: BP 101/61
--- NOTE | 2021-06-17 15:05 | NUR ---
REMOVED THE FEMORAL ACCESS, CATHETER IS INTACT, NO BLEEDING NOTED. APPLY PRESSURE FOR 10 MINUTES AND APPLY GAUZE AND TAPED THE SITE. EDUCATED PT TO KEEP APPLYING PRESSURE AND NOTIFY IS BLEEDING NOTED. WILL CONTINUE TO MONITOR PT FOR BLEEDING FROM FEMORAL SITE.
--- NOTE | 2021-06-17 15:43 | NUR ---
DC EMANI ROY CALLED PATIENT'S PCP MD MARIANO HERNANDES OFFICE [address] [facility] [address] [facility] [id number] TO SCHEDULED PATIENT'S FOLLOW UP APPOINTMENT. KIRILL SPOKE TO PARISH WHO WAS ABLE TO SCHEDULED PATIENT'S FOLLOW UP CARE ON 06/18/2021 AT 2:00 PM. KIRILL THANK HER AND ENDED THE CALL. KIRILL MET WITH PATIENT AT BEDSIDE TO PROVIDE HIM WITH A NOTE WITH HIS FOLLOW UP DATE, TIME, AND ADDRESS FOR HIS APPOINTMENT. PATIENT WAS THANKFUL FOR THE INFORMATION TOOK HIS NOTES AND AGREED TO ATTEND.
[2021-06-17 16:00] VITALS: BP 123/77
--- NOTE | 2021-06-17 16:58 | NUR ---
DISCHARGED PT TO HOME WITH HIS MOTHER AND FATHER IN STABLE CONDITION. VITALS WERE STABLE AT THE TIME OF DISCHARGE, NO SOB NOTED. DENIES PAIN AT THE MOMENT. CHECK FEMORAL LINE NO BLEEDING OR DISCHARGE NOTED. EDUCATED THE PT AND FAMILY TO APPLY PRESSURE IF HE HAS BLEEDING FROM FEMORAL SITE AND COME BACK IF IT DOES NOT STOP. ALL BELONGINGS WERE GIVEN. GIVE PT OXYGEN CYLINDER AND CONCENTRATOR AND EDUCATED HIM TO KEEP IT ON ALL THE TIME. FATHER AND MOTHER DO NOT HAVE ANY QUESTIONS AT THE TIME OF DISCHARGE.
== END 2021-06-17 17:00 | disposition home health service (06) | DRG 720 ==
LOC: MED 11:48 → MTU 14:10 → MMU 17:39 → MIC 05-23 09:28 → MTU 06-14 07:50
PROVIDERS: ADMIT Internal Medicine; ATTEND Internal Medicine
PROC: 5A0935A Assistance with Respiratory Ventilation, Less than 24 Consecutive Hours, High Flow/Velocity Cannula (ICD-10-PCS; 2021-05-21)
PROC: XW033E5 Introduction of Remdesivir Anti-infective into Peripheral Vein, Percutaneous Approach, New Technology Group 5 (ICD-10-PCS; 2021-05-21)
PROC: 5A09357 Assistance with Respiratory Ventilation, Less than 24 Consecutive Hours, Continuous Positive Airway Pressure (ICD-10-PCS; 2021-05-22)
PROC: 5A0935A Assistance with Respiratory Ventilation, Less than 24 Consecutive Hours, High Flow/Velocity Cannula (ICD-10-PCS; 2021-05-22)
PROC: 5A1955Z Respiratory Ventilation, Greater than 96 Consecutive Hours (ICD-10-PCS; principal; 2021-05-23)
PROC: 0BH17EZ Insertion of Endotracheal Airway into Trachea, Via Natural or Artificial Opening (ICD-10-PCS; 2021-05-23)
PROC: 02HV33Z Insertion of Infusion Device into Superior Vena Cava, Percutaneous Approach (ICD-10-PCS; 2021-05-23)
PROC: 5A09357 Assistance with Respiratory Ventilation, Less than 24 Consecutive Hours, Continuous Positive Airway Pressure (ICD-10-PCS; 2021-05-23)
PROC: 0BH17EZ Insertion of Endotracheal Airway into Trachea, Via Natural or Artificial Opening (ICD-10-PCS; 2021-06-04)
PROC: 02HV33Z Insertion of Infusion Device into Superior Vena Cava, Percutaneous Approach (ICD-10-PCS; 2021-06-06)
PROC: B548ZZA Ultrasonography of Superior Vena Cava, Guidance (ICD-10-PCS; 2021-06-06)
PROC: 5A0945A Assistance with Respiratory Ventilation, 24-96 Consecutive Hours, High Flow/Velocity Cannula (ICD-10-PCS; 2021-06-11)
DX: A41.9 Sepsis, unspecified organism (principal); J96.01 Acute respiratory failure with hypoxia; J12.82 Pneumonia due to coronavirus disease 2019; J14 Pneumonia due to Hemophilus influenzae; U07.1 COVID-19; Z99.11 Dependence on respirator [ventilator] status; D68.69 Other thrombophilia; E88.09 Other disorders of plasma-protein metabolism, not elsewhere classified; T85.628A Displacement of other specified internal prosthetic devices, implants and grafts, initial encounter; Y84.8 Other medical procedures as the cause of abnormal reaction of the patient, or of later complication, without mention of misadventure at the time of the procedure; Y92.238 Other place in hospital as the place of occurrence of the external cause; R74.01 Elevation of levels of liver transaminase levels; E87.5 Hyperkalemia; F41.9 Anxiety disorder, unspecified; F43.10 Post-traumatic stress disorder, unspecified; E66.01 Morbid (severe) obesity due to excess calories; F90.9 Attention-deficit hyperactivity disorder, unspecified type; Z68.42 Body mass index [BMI] 45.0-49.9, adult; Z87.891 Personal history of nicotine dependence; Z82.49 Family history of ischemic heart disease and other diseases of the circulatory system; Z87.820 Personal history of traumatic brain injury
CPT/HCPCS: 31500; 36415; 36600; 71045; 80048; 80053; 82310; 82803; 82948; 83036; 83605; 83735; 83880; 84100; 84484; 85025; 85379; 87040; 87070; 87081; 87205; 92610; 93005; 94002; 94003; 94660; 96361; 96365; 96367; 96375; 97110; 97112; 97116; 97163-GP; 97530; 99285; J0696; J1100; J1265; J1630; J1650; J1815; J1956; J2060; J2250; J2704; J3010; J3480; J3490; J7030; Q0092; U0003